=== PATIENT | male | born 1965 | race Hispanic/Latino ===

== ENCOUNTER 2017-12-20 17:53 | Emergency (ER) | payer MEDICARE ==
[~2017-12-20] VITALS: Ht 170.2 cm; Wt 108.9 kg
[~2017-12-20 17:53] MED LIST: GLIPIZIDE XL2.5 MG PO; LEVEMIR100 UNIT/1 SQ; METOCLOPRAMIDE10 MG PO; NORVASC10 MG PO; PROTONIX40 MG/ML PO
--- OUTSIDE RECORDS SUMMARY | 2017-12-20 17:56 | XMS REPORT | Clinical Summary ---
Author Author [facility] Address Unknown Phone Unavailable Care Team Providers Care Rail Equipment Operator Name Role Phone PCP Unavailable Allergies Not on File Current Medications Not on file Active Problems Not on file Encounters Date Type Specialty Care Team Description 11/29/2017 Telephone Transplant Duyen Lubin Appointment 11/28/2017 Orders Only Transplant Alka Novak RN ESRD (end stage renal disease) (HCC) (Primary Dx);Pre-transplant evaluation for end stage renal disease;Maturity onset diabetes mellitus in young (HCC);Essential hypertension, malignant;Anemia of chronic renal failure, unspecified CKD stage;Abnormal blood chemistry;Atherosclerosis of [place] coronary artery of [place] heart without angina pectoris;Impending cerebrovascular accident (HCC) 11/28/2017 Telephone Transplant Azul Green Appointment (Mrs. Hart called to confirm her spouse appt for 12/04/17. Per Mrs. Hart they will be here at 8 am for there appt) 10/29/2017 Abstract Transplant Karen Ma 10/19/2017 Abstract Transplant Karen Ma after 12/19/2016 Social History Tobacco Use Types Packs/Day Years Used Date Never Smoker Sex Assigned at Date Recorded Not on file Last Filed Vital Signs Vital Sign Reading Time Taken Blood Pressure - - Pulse - - Temperature - - Respiratory Rate - - Oxygen Saturation - - Inhaled Oxygen - - Concentration Weight 106.6 kg (235 lb) 10/19/2017 12:05 PM VICTIM WITNESS ADMINISTRATOR Height 170.2 cm (5' 7") 10/19/2017 12:05 PM VICTIM WITNESS ADMINISTRATOR Body Mass Index 36.81 10/19/2017 12:05 PM VICTIM WITNESS ADMINISTRATOR Plan of Treatment Health Maintenance Due Date Last Done Comments INFLUENZA VACCINE 06/24/2017 Results Not on fileafter 12/19/2016
--- OUTSIDE RECORDS SUMMARY | 2017-12-20 17:56 | XMS REPORT ---
Author Author [facility] Address Unknown Phone Unavailable Care Team Providers Care Outboard Motor Assembler Name Role Phone AGUILA REICO Unavailable Unavailable Problems This patient has no known problems. Allergies, Adverse Reactions, Alerts This patient has no known allergies or adverse reactions. Medications This patient has no known medications. Results Test Description Test Time Test Comments Text Results Atomic Results Result Comments CHEST SINGLE (PORTABLE) [place] [id number] Patient Name: ELIDIA ZAMORA MR #: [id number] : 1965 Age/Sex: 51/M Req #: [id number] Adm Physician: Ordered by: AGUILA RECIO MD Report # : [id number] Location: ER Room/Bed: Procedure: [id number] DX/CHEST SINGLE (PORTABLE) Exam Date: 07/07/17 Exam Time: 1900 REPORT STATUS: Signed CHEST SINGLE (PORTABLE), 2016 6:58 PM Technique: CHEST SINGLE (PORTABLE) Comparison: None available. Clinical history: Chest pain Findings: See Impression. Impression: 1. Unremarkable cardiomediastinal silhouette for technique. 2. Mild elevation of the right hemidiaphragm with right basilar opacity, which could be due to atelectasis or infection. Recommend upright PA and lateral. 3. No effusion or pneumothorax. Signed by: Dr Olayinka Harris MD on 07/07/2017 7:41 PM Dictated By: OLAYINKA HARRIS MD 40 Transcribed By: STEPHEN on 07/07 COPY TO: AGUILA RECIO MD
[2017-12-20 20:35] LABS: BASOPHILS # (AUTO) 0.1 (0.0-0.1); EOSINOPHILS # (AUTO) 0.3 (0.0-0.4); EOSINOPHILS % 3.3 % (0.0-6.0); HEMATOCRIT 36.6 % (38.2-49.6); HEMOGLOBIN 12.7 g/dL (14.0-18.0); LYMPHOCYTES # (AUTO) 1.8 (1.0-3.2); MEAN CORPUSCULAR HEMOGLOBIN 29.1 pg (28-32); MEAN CORPUSCULAR HGB CONC 34.7 g/dL (31-35); MEAN CORPUSCULAR VOLUME 83.8 fL (81-99); MONOCYTES # (AUTO) 0.6 (0.2-0.8); MONOCYTES % 7.2 % (4.4-11.3); NEUTROPHILS # (AUTO) 5.3 (2.1-6.9); NEUTROPHILS % 65.4 % (38.7-80.0); PLATELET COUNT 239 x10e3/uL (140-360); RED BLOOD COUNT 4.37 x10e6/uL (4.3-5.7); RED CELL DISTRIBUTION WIDTH 12.7 % (11.7-14.4)
[2017-12-20 20:36] LABS: BILIRUBIN,URINE NEGATIVE (NEGATIVE); CLARITY,URINE CLEAR (CLEAR); COLOR,URINE YELLOW (YELLOW); KETONES,URINE NEGATIVE (NEGATIVE); LEUKOCYTE ESTERASE ,URINE NEGATIVE (NEGATIVE); NITRITE,URINE NEGATIVE (NEGATIVE); PROTEIN,URINE DIPSTICK 3+ (NEGATIVE); URINE UROBILINOGEN 0.2 mg/dL (0.2 - 1)
[2017-12-20 20:49] LABS: BACTERIA,URINE MODERATE /HPF; EPITHELIAL CELLS,URINE FEW /LPF
[2017-12-20 20:51] LABS: ALBUMIN/GLOBULIN RATIO 0.7 (0.8-2.0); ANION GAP 16.5 mmol/L (8-16); CALCIUM 9.4 mg/dL (8.4-10.2); CREATININE, SERUM 8.33 mg/dL (0.72-1.25)
[2017-12-20 20:52] LABS: POTASSIUM 5.5 mmol/L (3.5-5.1)
[2017-12-20] MEDS ORDERED: INSULIN REGULAR, HUMAN 100 UNIT/1 ML 3ML VIAL IV ONE (22:30)
[2017-12-20] MEDS ORDERED: INSULIN REGULAR, HUMAN 100 UNIT/1 ML 3ML VIAL SQ ONE (22:30)
[2017-12-20] MEDS ORDERED: CLONIDINE HCL 0.2 MG TAB PO ONE (22:45)
== END 2017-12-21 02:19 | disposition home or self-care (01) ==
LOC: ER 17:53
DX: E11.65 Type 2 diabetes mellitus with hyperglycemia (principal); I12.0 Hypertensive chronic kidney disease with stage 5 chronic kidney disease or end stage renal disease; E11.22 Type 2 diabetes mellitus with diabetic chronic kidney disease; N18.6 End stage renal disease; Z99.2 Dependence on renal dialysis
CPT/HCPCS: 36415; 80053; 81001; 82948; 85025; 99283

== ENCOUNTER 2018-12-31 11:43 | Emergency (ER) | payer MEDICARE ==
[~2018-12-31] VITALS: Ht 170.2 cm; Wt 103.0 kg
--- OUTSIDE RECORDS SUMMARY | 2018-12-31 11:46 | XMS REPORT | Clinical Summary ---
Author Author [facility] Address Unknown Phone Unavailable Care Team Providers Care Central Supply Assistant Name Role Phone PCP Unavailable Allergies Not on File Medications Not on file Active Problems Not on file Encounters Care Team Description Date Type Specialty Azul Green Appointment (Per Mrs. Hart they will be here for their appt on tomorrow but they will probably be a few minutes late due to having to take their daughter to school they only have one car) 12/23/2018 Telephone Transplant Alka Novak RN ESRD (end stage renal disease) ([facility]) (Primary Dx); Pre-transplant evaluation for end stage renal disease; Maturity onset diabetes mellitus in young (HCC); Essential hypertension, malignant; Anemia of chronic renal failure, unspecified CKD stage; Abnormal blood chemistry; Pre-operative cardiovascular examination; Pure hypercholesterolemia; Atherosclerosis of [place] coronary artery of [place] heart without angina pectoris; Impending cerebrovascular accident (HCC) 11/18/2018 Orders Only Transplant Karen Ma 11/18/2018 Abstract Transplant Karen Ma 10/23/2018 Abstract Transplant Karen Ma 10/23/2018 Abstract Transplant Karen Ma 10/23/2018 Abstract Transplant Karen Ma 10/23/2018 Abstract Transplant MaKaren 10/23/2018 Abstract Transplant Karen Ma 03/15/2018 Abstract Transplant Karen Ma Kidney Transplant Pre-evaluation 02/25/2018 Telephone Transplant No Show 02/12/2018 Office Visit Transplant Karen Ma 01/16/2018 Abstract Transplant after 12/30/2017 Social History Date Tobacco Use Types Packs/Day Years Used Never Smoker Sex Assigned at Date Recorded Not on file Industry Job Start Date Occupation Not on file Not on file Not on file Travel End Travel History Travel Start No recent travel history available. Last Filed Vital Signs Time Taken Vital Sign Reading - Blood Pressure - - Pulse - - Temperature - - Respiratory Rate - - Oxygen Saturation - - Inhaled Oxygen - Concentration 10/23/2018 12:[address] RECORDER Weight 101.7 kg (224 lb 3.3 oz) 10/23/2018 12:[address] RECORDER Height 170.2 cm (5' 7") 10/23/2018 12:[address] RECORDER Body Mass Index 35.12 Plan of Treatment Care Team Description Date Type Specialty 02/25/2019 Office Visit Transplant 02/25/2019 Office Visit Transplant Wilton Singh II, MD [address] [place] [address] 02/25/2019 Orders Only Transplant Hepatology 02/25/2019 Evaluation Transplant Results Not on fileafter 12/30/2017 Insurance Payer Benefit Subscriber ID Type Phone Address Plan / Group MEDICARE MEDICARE A xxxxxxxxxxx Medicare B
[2018-12-31] MEDS ORDERED: SODIUM CHLORIDE 0.9% 1000ML 500 ML IV STA (12:18)
[2018-12-31 13:22] LABS: BASOPHILS # (AUTO) 0.1 (0.0-0.1); BASOPHILS % 1.1 % (0.0-1.0); EOSINOPHILS # (AUTO) 0.2 (0.0-0.4); EOSINOPHILS % 1.6 % (0.0-6.0); HEMOGLOBIN 13.1 g/dL (14.0-18.0); LYMPHOCYTES # (AUTO) 1.6 (1.0-3.2); LYMPHOCYTES % 12.6 % (18.0-39.1); MEAN CORPUSCULAR HEMOGLOBIN 28.8 pg (28-32); MEAN CORPUSCULAR VOLUME 90.1 fL (81-99); MONOCYTES # (AUTO) 1.1 (0.2-0.8); MONOCYTES % 8.2 % (4.4-11.3); NEUTROPHILS # (AUTO) 9.6 (2.1-6.9); NEUTROPHILS % 74.7 % (38.7-80.0); PLATELET COUNT 306 x10e3/uL (140-360); RED BLOOD COUNT 4.55 x10e6/uL (4.3-5.7); RED CELL DISTRIBUTION WIDTH 14.3 % (11.7-14.4)
--- NOTE | 2018-12-31 13:45 | NUR ---
PT TO ER ROOM 7 AT THIS TIME, V/S/S.
[2018-12-31 13:48] LABS: ALBUMIN 3.9 g/dL (3.5-5.0); ALBUMIN/GLOBULIN RATIO 0.8 (0.8-2.0); ANION GAP 17.4 mmol/L (8-16); CALCIUM 9.6 mg/dL (8.4-10.2); CREATININE, SERUM 10.85 mg/dL (0.72-1.25)
--- NOTE | 2018-12-31 13:50 | NUR ---
PT STATES "I FEEL BETTER, I DON'T HEAR THE RINGING IN MY EARS ANY MORE AND MY HEADACHE IS GONE". PT INSTRUCTED ON NEED TO OBTAIN STOOL SPECIMEN, STATES "I DO NOT THINK I CAN HAVE A BM RIGHT NOW", DR. RECIO MADE AWARE, PROVIDING FOOD AT THIS TIME.
[2018-12-31 13:52] LABS: POTASSIUM 6.4 mmol/L (3.5-5.1)
[2018-12-31] MEDS ORDERED: SODIUM BICARBONATE 8.4% 50 ML VIAL IV STA ×2 (13:56→14:04)
[2018-12-31] MEDS ORDERED: DEXTROSE 50% SYRINGE 50 ML IV STA (13:56)
[2018-12-31] MEDS ORDERED: CALCIUM CHLORIDE 13.6 MEQ in SODIUM CHLORIDE 0.9% 100 ML 100 ML IV ONE (14:00)
[2018-12-31] MEDS ORDERED: SOD POLYSTYRENE SULFONATE SUSP 15 GM/60 ML BTL PO ONE (14:00)
[2018-12-31] MEDS ORDERED: INSULIN REGULAR, HUMAN 100 UNIT/1 ML 3ML VIAL IV ONE (14:00)
[2018-12-31 16:40] LABS: OCCULT BLOOD STOOL POSITIVE (NEGATIVE)
[2018-12-31 16:59] VITALS: BP 124/74
[2019-01-01 11:52] LABS: C DIFFICILE TOXIN A&B AMP PROB NEGATIVE (NEGATIVE)
== END 2018-12-31 17:03 | disposition home or self-care (01) ==
LOC: ER 11:43
DX: R19.7 Diarrhea, unspecified (principal); E86.1 Hypovolemia; I95.89 Other hypotension
CPT/HCPCS: 36415; 80053; 82270; 82550; 82553; 82948; 83605; 84484; 85025; 87045; 87493; 93005; 99284; J1817; J7030; J7799

== ENCOUNTER → 2019-02-27 | Outpatient (CLI) | payer MEDICARE ==
--- NOTE | 2019-02-27 08:56 | Diagnostic Imaging Report ---
EXAM: US ABDOMEN COMPLETE INDICATION: Right upper quadrant abdominal pain COMPARISON: None TECHNIQUE: Transverse and longitudinal chávez scale and color doppler sonographic images of the abdomen were obtained. FINDINGS: LIVER 15.2 cm in the right midclavicular line. Normal echogenicity of the liver with normal contour, no masses. SPLEEN 11.6 cm in maximum diameter. Normal echogenicity, no masses. GALLBLADDER No gallbladder wall thickening, distension, stone, or pericholecystic fluid. Negative reported sonographic Campoverde's sign. BILE DUCTS No intra nor extra-hepatic biliary dilation. Common bile duct measures 0.2 cm PANCREAS: Not well visualized due to overlying bowel gas. RIGHT KIDNEY: 10.6 cm Echogenicity: Normal Collecting System: No hydronephrosis Stones: None Cyst/Mass: None LEFT KIDNEY: 10.9 cm Echogenicity: Normal Collecting System: No hydronephrosis Stones: None Cyst/Mass: None VESSELS: Aorta: Visualized portions are within normal size limits. The proximal portion is not well visualized due to overlying bowel gas. Inferior Vena Cava: Not well visualized due to overlying bowel gas. Main Portal Vein: 0.6 cm, normal size with hepatopetal flow. FREE FLUID: None IMPRESSION: Unremarkable abdominal ultrasound. Signed by: Dr. Wesley Edwards MD on 02/27/2019 8:53 AM
== END ==
LOC: US 07:54
PROVIDERS: ATTEND Internal Medicine Gastroenterology
DX: R10.11 Right upper quadrant pain (principal); D12.6 Benign neoplasm of colon, unspecified
CPT/HCPCS: 76700

== ENCOUNTER 2020-04-19 20:21 | Inpatient (IN) | payer MEDICARE ==
[~2020-04-19] VITALS: Ht 170.2 cm; Wt 108.2 kg
[2020-04-19] MEDS ORDERED: PIPERACILLIN/TAZO 2.25 GM 50 ML IV ONE (21:00)
[2020-04-19] MEDS ORDERED: VANCOMYCIN 1GM/NS 250 ML 250 ML IV ONE (21:00)
[2020-04-19] MEDS ORDERED: ACETAMINOPHEN 325 MG TAB PO ONE (21:15)
[2020-04-19 21:16] LABS: BASOPHILS # (AUTO) 0.1 (0.0-0.1); BASOPHILS % 0.7 % (0.0-1.0); EOSINOPHILS # (AUTO) 0.2 (0.0-0.4); EOSINOPHILS % 1.5 % (0.0-6.0); HEMATOCRIT 39.3 % (38.2-49.6); HEMOGLOBIN 12.6 g/dL (14.0-18.0); LYMPHOCYTES # (AUTO) 1.1 (1.0-3.2); LYMPHOCYTES % 7.9 % (18.0-39.1); MEAN CORPUSCULAR HEMOGLOBIN 28.3 pg (28-32); MEAN CORPUSCULAR HGB CONC 32.1 g/dL (31-35); MEAN CORPUSCULAR VOLUME 88.1 fL (81-99); MONOCYTES # (AUTO) 1.2 (0.2-0.8); MONOCYTES % 8.6 % (4.4-11.3); NEUTROPHILS % 80.4 % (38.7-80.0); PLATELET COUNT 261 x10e3/uL (140-360); RED BLOOD COUNT 4.46 x10e6/uL (4.3-5.7)
[2020-04-19 21:30] LABS: ALBUMIN 3.3 g/dL (3.5-5.0); ALBUMIN/GLOBULIN RATIO 0.6 (0.8-2.0); ANION GAP 20.9 mmol/L (8-16); CREATININE, SERUM 6.82 mg/dL (0.72-1.25); POTASSIUM 3.9 mmol/L (3.5-5.1)
[2020-04-19 21:37] LABS: CREATINE KINASE MB 2.2 ng/mL (0-5.0)
--- NOTE | 2020-04-19 21:38 | Emergency Department Note ---
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 HAS BEEN ON CEFDINIR AND ANTIBIOTIC EAR DROPS SINCE LAST SUNDAY Historian: Patient Arrival Mode: Car Onset (how long ago): day(s) (7) Location: LEFT EAR Quality: PAIN, DRAINAGE Radiation: Reports non-radiation Severity: moderate Onset quality: gradual Duration (how long): week(s) (1) Timing of current episode: constant Progression: worsening Context: Reports recent illness (OTITIS EXTERNA LEFT EAR) Relieving factors: none Associated symptoms: Reports fever/chills Treatments prior to arrival: NSAID, other (ANTIBIOTICS ) Past Medical/Family History Physician Review I have reviewed the patient's past medical and family history. Any updates have been documented here. Past Medical History Recent Fever: Yes Clinical Suspicion of Infectio: Yes New/Unexplained Change in Ment: No Past Medical History: Hypertension, Diabetes, CAD, Hemodyalisis, Chronic Kidney Disease Other Medical History: CATARACTS DIALYSIS M/W/F Past Surgical History: PCI Other Surgery: DIALYSIS GRAFT RIGHT FA colonoscopy with polupectomy Social History Smoking Cessation: Never Smoker Alcohol Use: None Any Illegal Drug Use: No Physically hurt or threatened: No Family History Other family history HTN, DM Other Last Tetanus: UTD Review of Systems Review of Systems Constitutional: Reports as per HPI EENTM: Reports as per HPI Cardiovascular: Reports no symptoms Respiratory: Reports no symptoms Gastrointestinal: Reports no symptoms Genitourinary: Reports no symptoms Musculoskeletal: Reports no symptoms Integumentary: Reports no symptoms Neurological: Reports no symptoms Psychological: Reports no symptoms Endocrine: Reports no symptoms Hematological/Lymphatic: Reports no symptoms Physical Exam Related Data Allergies: Coded Allergies: No Known Allergies (Unverified , 12/31/18) Triage Vital Signs Vital Signs Date Time Temp Pulse Resp B/P (MAP) Pulse Ox O2 Delivery O2 Flow Rate FiO2 04/19/20 20:40 102.0 110 20 162/86 100 Room Air Vital signs reviewed: Yes Physical Exam CONSTITUTIONAL Constitutional: Present well-developed, Present well-nourished HENT HENT: Present normocephalic, Present atraumatic, Present oropharynx clear/m oist, Present nose normal HENT L/R: Present right ext ear normal, Present other (PT WITH PAIN TO MOVEMENT LEFT EAR, MALODOROUS DISCHARGE FROM LEFT EAR, CANAL SWOLLEN) EYES Eyes: Reports PERRL, Reports conjunctivae normal NECK Neck: Present ROM normal PULMONARY Pulmonary: Present effort normal, Present breath sounds normal CARDIOVASCULAR Cardiovascular: Present regular rhythm, Present heart sounds normal, Present capillary refill normal, Present tachycardia GASTROINTESTINAL Abdominal: Present soft, Present nontender, Present bowel sounds normal GENITOURINARY Genitourinary: Present exam deferred SKIN Skin: Present warm, Present dry MUSCULOSKELETAL Musculoskeletal: Present ROM normal NEUROLOGICAL Neurological: Present alert, Present oriented x 3, Present no gross motor or sensory deficits PSYCHOLOGICAL Psychological: Present mood/affect normal, Present judgement normal Results Laboratory Result Diagram: 04/19/202049 Laboratory Laboratory Tests Test 04/19/20 20:53 04/19/20 20:50 White Blood Count 13.68 x10e3/uL (4.8-10.8) Red Blood Count 4.46 x10e6/uL (4.3-5.7) Hemoglobin 12.6 g/dL (14.0-18.0) Hematocrit 39.3 % (38.2-49.6) Mean Corpuscular Volume 88.1 fL (81-99) Mean Corpuscular Hemoglobin 28.3 pg (28-32) Mean Corpuscular Hemoglobin Concent 32.1 g/dL (31-35) Red Cell Distribution Width 13.0 % (11.7-14.4) Platelet Count 261 x10e3/uL (140-360) Neutrophils (%) (Auto) 80.4 % (38.7-80.0) Lymphocytes (%) (Auto) 7.9 % (18.0-39.1) Monocytes (%) (Auto) 8.6 % (4.4-11.3) Eosinophils (%) (Auto) 1.5 % (0.0-6.0) Basophils (%) (Auto) 0.7 % (0.0-1.0) Neutrophils # (Auto) 11.0 (2.1-6.9) Lymphocytes # (Auto) 1.1 (1.0-3.2) Monocytes # (Auto) 1.2 (0.2-0.8) Eosinophils # (Auto) 0.2 (0.0-0.4) Basophils # (Auto) 0.1 (0.0-0.1) Absolute Immature Granulocyte (auto 0.12 x10e3/uL (0-0.1) Sodium Level 134 mmol/L (136-145) Potassium Level 3.9 mmol/L (3.5-5.1) Chloride Level 90 mmol/L (98-107) Carbon Dioxide Level 27 mmol/L (22-29) Anion Gap 20.9 mmol/L (8-16) Blood Urea Nitrogen 20 mg/dL (7-26) Creatinine 6.82 mg/dL (0.72-1.25) Estimat Glomerular Filtration Rate 9 ML/MIN (60-) BUN/Creatinine Ratio 3 (6-25) Glucose Level 357 mg/dL (74-118) Lactic Acid Level 1.6 mmol/L (0.5-2.0) Calcium Level 9.0 mg/dL (8.4-10.2) Total Bilirubin 0.5 mg/dL (0.2-1.2) Aspartate Amino Transf (AST/SGOT) 14 IU/L (5-34) Alanine Aminotransferase (ALT/SGPT) 19 IU/L (0-55) Alkaline Phosphatase 215 IU/L (40-150) Creatine Kinase 144 IU/L (30-200) Creatine Kinase MB 2.20 ng/mL (0-5.0) Troponin I 0.051 ng/mL (0-0.300) Total Protein 8.7 g/dL (6.5-8.1) Albumin 3.3 g/dL (3.5-5.0) Globulin 5.4 g/dL (2.3-3.5) Albumin/Globulin Ratio 0.6 (0.8-2.0) Laboratory Tests Test 04/19/20 20:53 04/19/20 20:50 White Blood Count 13.68 x10e3/uL (4.8-10.8) Red Blood Count 4.46 x10e6/uL (4.3-5.7) Hemoglobin 12.6 g/dL (14.0-18.0) Hematocrit 39.3 % (38.2-49.6) Mean Corpuscular Volume 88.1 fL (81-99) Mean Corpuscular Hemoglobin 28.3 pg (28-32) Mean Corpuscular Hemoglobin Concent 32.1 g/dL (31-35) Red Cell Distribution Width 13.0 % (11.7-14.4) Platelet Count 261 x10e3/uL (140-360) Neutrophils (%) (Auto) 80.4 % (38.7-80.0) Lymphocytes (%) (Auto) 7.9 % (18.0-39.1) Monocytes (%) (Auto) 8.6 % (4.4-11.3) Eosinophils (%) (Auto) 1.5 % (0.0-6.0) Basophils (%) (Auto) 0.7 % (0.0-1.0) Neutrophils # (Auto) 11.0 (2.1-6.9) Lymphocytes # (Auto) 1.1 (1.0-3.2) Monocytes # (Auto) 1.2 (0.2-0.8) Eosinophils # (Auto) 0.2 (0.0-0.4) Basophils # (Auto) 0.1 (0.0-0.1) Absolute Immature Granulocyte (auto 0.12 x10e3/uL (0-0.1) Lactic Acid Level 1.6 mmol/L (0.5-2.0) Lab results reviewed: Yes Imaging Imaging results reviewed: Yes Impressions Procedure: [id number] DX/CHEST SINGLE (PORTABLE) Exam Date: 04/19/20 Exam Time: 2113 REPORT STATUS: Signed EXAMINATION: CHEST SINGLE (PORTABLE) INDICATION: Fever COMPARISON: Radiograph dated 07/07/2017 FINDINGS: TUBES and LINES: None. LUNGS: Low lung volumes. Lungs are clear. No consolidations. PLEURA: No pleural effusion or pneumothorax. HEART AND MEDIASTINUM: The cardiomediastinal silhouette is unremarkable. BONES AND SOFT TISSUES: No acute osseous lesion. Soft tissues are unremarkable. UPPER ABDOMEN: No free air under the diaphragm. IMPRESSION: No acute thoracic radiographic abnormality. Signed by: Tyler Bateman MD on 04/19/2020 10:19 PM Procedures 12 Lead ECG Interpretation ECG Interpretation : ECG: ECG 1 Garment Inspector: Interpreted by ED physician Date: Apr 19, 2020 Time: 20:52 Rhythm: sinus tachycardia Rate: tachycardia BPM: 107 QRS axis: normal ST segments normal: Yes Other findings: no other findings Clinical Impression: non-specific ECG Assessment & Plan Medical Decision Making MDM PT WITH OTITIS EXTERNAL ON ANTIBIOTICS FOR SINCE LAST SUNDAY, NOW WITH FEVER, CBC, CMP, LACTIC ACID, BLOOD CULTURES, CXR, EKG ORDERED TO EVAL FOR SEPSIS, LEUKOCYTOSIS, PNEUMONIA, ELECTROLYTE ABNORMALITY. ZOSYN 2.275 GRAMS IV ORDERED VANCOMYCIN 1 GRAM IV ORDERED TYLENOL 975 MG PO ORDERED I SPOKE WITH DR PEREZ, DR GOMEZ COVERING FOR DR BILL AND DR Ksenia THOMPSON, ADMIT INPATIENT Assessment & Plan Final Impression: (1) Otitis externa (2) Fever (3) Failure of outpatient treatment (4) ESRD (end stage renal disease) Depart Disposition: ADMITTED Last Vital Signs Date Time Temp Pulse Resp B/P (MAP) Pulse Ox O2 Delivery O2 Flow Rate FiO2 04/19/20 20:40 102.0 110 20 162/86 100 Room Air Home Meds Active Scripts Metoclopramide Hcl (METOCLOPRAMIDE HCL) 10 Mg Tablet, 10 MG PO BIDAC for 30 Days, 5 Refills Prov:DANA PEREZ MD 07/08/17 Pantoprazole Sod (PROTONIX) 40 Mg/Ml Susp, 40 MG PO ACB for 30 Days, 5 Refills Prov:DANA PEREZ MD 07/08/17 Glipizide (GLIPIZIDE XL) 2.5 Mg Tabcr, 2.5 MG PO DAILY@08 for 30 Days, 5 Refills Prov:DANA PERZE MD 07/08/17 Amlodipine Besylate (NORVASC) 10 Mg Tab, 10 MG PO HS for 30 Days, TAB 5 Refills Prov:DANA PEREZ MD 07/08/17 Reported Medications Insulin Detemir (LEVEMIR) 100 Unit/1 Ml Vial, 30 UNITS SQ HS 07/07/17 Medications in the ED Vancomycin HCl 250 ml @ 166.667 mls/hr NOW ONCE IV ; Start 04/19/20 at 21:00; Stop 04/19/20 at 22:29 Piperacillin Sod/ Tazobactam Sod 50 ml @ 50 mls/hr NOW ONCE IV Last administered on 04/19/20at 21:16; Admin Dose 50 MLS/HR; Start 04/19/20 at 21:00; Stop 04/19/20 at 21:59 Acetaminophen 975 mg ONCE ONCE PO Last administered on 04/19/20at 21:16; Admin Dose 975 MG; Start 04/19/20 at 21:15; Stop 04/19/20 at 21:16; Status DC ROBBY RAM MD Apr 19, 2020 21:38
--- NOTE | 2020-04-19 22:23 | Diagnostic Imaging Report ---
EXAMINATION: CHEST SINGLE (PORTABLE) INDICATION: Fever COMPARISON: Radiograph dated 07/07/2017 FINDINGS: TUBES and LINES: None. LUNGS: Low lung volumes. Lungs are clear. No consolidations. PLEURA: No pleural effusion or pneumothorax. HEART AND MEDIASTINUM: The cardiomediastinal silhouette is unremarkable. BONES AND SOFT TISSUES: No acute osseous lesion. Soft tissues are unremarkable. UPPER ABDOMEN: No free air under the diaphragm. IMPRESSION: No acute thoracic radiographic abnormality. Signed by: Tyler Bateman MD on 04/19/2020 10:19 PM
[2020-04-19] MEDS ORDERED: DEXTROSE 50% SYRINGE 50 ML IV PRN (23:00)
[2020-04-20] VITALS (7 sets, daily range): BP systolic 141–170; BP diastolic 77–83
[2020-04-20] MEDS: PIPERACILLIN/TAZO 2.25 GM 50 ML IV SCH ×3 (00:37→22:26)
[2020-04-20 04:17] LABS: BASOPHILS # (AUTO) 0.1 (0.0-0.1); BASOPHILS % 0.7 % (0.0-1.0); EOSINOPHILS # (AUTO) 0.2 (0.0-0.4); EOSINOPHILS % 2.2 % (0.0-6.0); HEMATOCRIT 34.7 % (38.2-49.6); HEMOGLOBIN 11.1 g/dL (14.0-18.0); LYMPHOCYTES # (AUTO) 1.6 (1.0-3.2); LYMPHOCYTES % 14.5 % (18.0-39.1); MEAN CORPUSCULAR HEMOGLOBIN 28.2 pg (28-32); MEAN CORPUSCULAR VOLUME 88.3 fL (81-99); MONOCYTES # (AUTO) 1.1 (0.2-0.8); MONOCYTES % 10.1 % (4.4-11.3); NEUTROPHILS # (AUTO) 7.6 (2.1-6.9); NEUTROPHILS % 71.7 % (38.7-80.0); PLATELET COUNT 226 x10e3/uL (140-360); RED BLOOD COUNT 3.93 x10e6/uL (4.3-5.7); RED CELL DISTRIBUTION WIDTH 12.8 % (11.7-14.4)
[2020-04-20 04:36] LABS: ALBUMIN 2.8 g/dL (3.5-5.0); ALBUMIN/GLOBULIN RATIO 0.6 (0.8-2.0); ANION GAP 19.5 mmol/L (8-16); CALCIUM 7.5 mg/dL (8.4-10.2); CREATININE, SERUM 8.07 mg/dL (0.72-1.25); POTASSIUM 4.5 mmol/L (3.5-5.1)
--- NOTE | 2020-04-20 05:27 | NUR ---
Patient oxygen saturation dropped when patient was sleeping. Patient placed on 2L. Patient denies any shortness of breath at this time.
--- NOTE | 2020-04-20 07:04 | NUR ---
Report to OMAR Bosch
[2020-04-20] MEDS: MORPHINE SULFATE 2 MG/ML SYR 1ML IV PRN ×3 (07:24→22:23)
[2020-04-20] MEDS: INSULIN REGULAR, HUMAN 100 UNIT/1 ML 3ML VIAL SQ SCH ×4 (08:09→20:46)
--- NOTE | 2020-04-20 08:09 | NUR ---
PATIENT SITTING UP EATING BREAKFAST
[2020-04-20] MEDS ORDERED: SODIUM CHLORIDE 0.9% 250ML 250 ML ONE ×2 (12:27→22:22)
[2020-04-20] MEDS: ONDANSETRON HCL INJ 2MG/ML 2ML 2 MG/ML VIAL IV PRN ×2 (14:00→22:27)
[2020-04-20] MEDS: NEOMYCIN/POLYMYX/HYDROC (OTIC) 10 ML BTL OT SCH ×3 (14:00→20:43)
[2020-04-20] MEDS ORDERED: CIPROFLOXACIN-DEXAMETHASONE (OTIC) 7.5 ML BOTTLE OT SCH (17:00)
--- NOTE | 2020-04-20 19:00 | NUR ---
RECEIVED PATIENT IN BEDSIDE SHIFT REPORT. PATIENT RESTING IN BED AT THIS TIME. PAIN TO L EAR/FACE 01/31. NO S&S OF DISTRESS NOTED AT THIS TIME. BED LOCKED IN LOWEST POSITION, SIDE RAILS UPX2, CALL LIGHT IN REACH.
--- NOTE | 2020-04-20 20:15 | Consultation ---
DATE OF CONSULTATION: 04/20/2020 Hospital Consultation HISTORY OF PRESENT ILLNESS: I was kindly asked to see this 54-year-old man for evaluation of otitis externa. The patient has no previous otologic history until one week prior to consultation when he developed discomfort in his left ear and pain when using a Q-tip in his left ear. He stopped using Q-tips, however, the pain progressed. He had mild drainage from his ear. He reports that one day prior to admission, he had a "off balance" sensation, but no true hallucination motion. He also denies tinnitus and hearing loss. His history of present illness, past medical history, and past surgical history were all reviewed in detail in the chart. PHYSICAL EXAMINATION: On examination, the right pinna was normal. Right external auditory canal was normal. Right tympanic membrane was normal. The right postauricular area had no pain, swelling, erythema, or tenderness. The left pinna was normal. The left external auditory canal was mildly edematous and mildly erythematous with mucopus within the external auditory canal. The tympanic membrane cannot be visualized. There was no postauricular pain, swelling, erythema, or tenderness. Intranasal examination was noncontributory. Oral cavity examination showed ezdt-my-[id number] candidiasis on the dorsum of the tongue. He had long soft palate and redundant folds of hypopharyngeal mucosa. There was minimal postnasal drainage. He had no palpable cervical adenopathy. Facial nerve was intact with no evidence of weakness. ASSESSMENT: Left otitis externa. PLAN: Addition of topical therapy with Cortisporin drops 4 times daily. Thank you very much for this consultation. MD DANIEL Russo/MODL /[id number]
[2020-04-20] MEDS: AMLODIPINE BESYLATE 10 MG TAB PO SCH (20:43)
[2020-04-20] MEDS: ACETAMINOPHEN 325 MG TAB PO PRN (20:44)
[2020-04-20] MEDS: HYDRALAZINE HCL 20 MG/ML VIAL IV PRN (20:44)
[2020-04-20] MEDS ORDERED: NON-FORMULARY MEDICATION (Insulin Detemir (Levemir) 30 UNITS) SQ SCH (21:00)
[2020-04-20] MEDS ORDERED: INSULIN GLARGINE 100 UNITS/ML VIAL SQ SCH (21:00)
[2020-04-21] VITALS (10 sets, daily range): BP systolic 116–189; BP diastolic 60–78
[2020-04-21 05:44] LABS: BASOPHILS # (AUTO) 0.1 (0.0-0.1); BASOPHILS % 0.6 % (0.0-1.0); EOSINOPHILS # (AUTO) 0.4 (0.0-0.4); EOSINOPHILS % 3.1 % (0.0-6.0); HEMATOCRIT 35.4 % (38.2-49.6); LYMPHOCYTES # (AUTO) 1.8 (1.0-3.2); LYMPHOCYTES % 14.8 % (18.0-39.1); MEAN CORPUSCULAR HEMOGLOBIN 30.5 pg (28-32); MEAN CORPUSCULAR HGB CONC 33.9 g/dL (31-35); MEAN CORPUSCULAR VOLUME 90.1 fL (81-99); MONOCYTES # (AUTO) 1.1 (0.2-0.8); MONOCYTES % 8.5 % (4.4-11.3); NEUTROPHILS % 72.3 % (38.7-80.0); PLATELET COUNT 224 x10e3/uL (140-360); RED BLOOD COUNT 3.93 x10e6/uL (4.3-5.7); RED CELL DISTRIBUTION WIDTH 13.1 % (11.7-14.4)
[2020-04-21 06:40] LABS: ALBUMIN 2.8 g/dL (3.5-5.0); ALBUMIN/GLOBULIN RATIO 0.6 (0.8-2.0); ANION GAP 23.8 mmol/L (8-16); CALCIUM 7.8 mg/dL (8.4-10.2); CREATININE, SERUM 10.95 mg/dL (0.72-1.25); POTASSIUM 4.8 mmol/L (3.5-5.1)
[2020-04-21] MEDS: INSULIN REGULAR, HUMAN 100 UNIT/1 ML 3ML VIAL SQ SCH ×4 (07:30→21:20)
--- NOTE | 2020-04-21 07:30 | NUR ---
PATIENT IS ALERT AND IN STABLE CONDITION WITH NO S/S OF RESPIRATORY DISTRESS. PATIENT C/O LEFT SIDE HEAD PAIN D/T LEFT EAR. CALL LIGHT IS WITHIN REACH, PATIENT INSTRUCTED TO CALL FOR ASSISTANCE NEEDED.
[2020-04-21] MEDS: ACETAMINOPHEN 325 MG TAB PO PRN ×2 (07:48→20:29)
[2020-04-21] MEDS: PANTOPRAZOLE SOD 40 MG TABEC PO SCH (07:48)
[2020-04-21] MEDS: HYDRALAZINE HCL 20 MG/ML VIAL IV PRN (07:49)
[2020-04-21] MEDS: NEOMYCIN/POLYMYX/HYDROC (OTIC) 10 ML BTL OT SCH ×4 (07:52→21:20)
[2020-04-21] MEDS ORDERED: GLIPIZIDE5 MG PO (08:33)
[2020-04-21] MEDS ORDERED: AUGMENTIN 875-1 EACH PO (08:33)
[2020-04-21] MEDS ORDERED: NEOMYCIN-POLYMY10 ML OT (08:33)
[2020-04-21] MEDS ORDERED: TYLENOL WITH C1 EACH PO (08:33)
[2020-04-21] MEDS ORDERED: LEVEMIR100 UNIT/1 SQ (08:33)
[2020-04-21] MEDS ORDERED: LEVEMIR FL100 UNIT/1 SC (08:34)
[2020-04-21] MEDS ORDERED: LISINOPRIL10 MG PO (08:36)
[2020-04-21] MEDS ORDERED: HYDRALAZINE HCL25 MG PO (08:40)
[2020-04-21] MEDS ORDERED: LISINOPRIL 10 MG TAB PO SCH (09:00)
[2020-04-21] MEDS: HYDRALAZINE HCL 25 MG TAB PO SCH ×2 (09:26→15:35)
--- NOTE | 2020-04-21 10:01 | NUR ---
CONSULT CALLED TO DR. BILL- AWAITING CALLBACK
[2020-04-21] MEDS: PIPERACILLIN/TAZO 2.25 GM 50 ML IV SCH ×2 (10:58→23:35)
--- NOTE | 2020-04-21 11:37 | NUR ---
CALL PLACED TO [facility]- SPOKE WITH FRANK REGARDING PATIENT NEEDING DIALYSIS TODAY. ORDER RECEIVED FROM DR. CAT.
--- NOTE | 2020-04-21 13:55 | NUR ---
PATIENT STARTED DIALYSIS- PATIENT IN STABLE CONDITION WITH NO S/S OF RESPIRATORY DISTRESS. NO C/O PAIN. CALL LIGHT IS WITHIN REACH, PATIENT INSTRUCTED TO CALL FOR ASSISTANCE NEEDED.
--- NOTE | 2020-04-21 15:55 | NUR ---
Nutrition Screen Note RD Recommendation for Physician: -Continue current diet as ordered Plan of Care: RD following, monitoring for tolerance and adequacy Nutrition reason for involvement: Diagnosis - ESRD Primary Diagnose(s): ESRD, failure of outpatient treatments, otitis externa PMH: hypertension, type 2 diabetes and end-stage renal disease Ht: 67 in Wt: 230 lb BMI: 36.0 kg/m2 IBW:[address] Assessment: (04/21/20) Chart reviewed. Labs and meds reviewed. Pt is a 54 year old male admitted with ESRD, failure of outpatient treatments, and otitis externa. It is recorded that pt is consuming 75-100% of meals. No weight loss is evident per weight history in chart. Pt weighed 232 lbs in June 2017 and pt currently weighs 230 lbs. Will continue to monitor Current Diet: renal/diabetic diet Malnutrition Evaluation (04/21/20) The patient does not meet criteria for a specified degree of malnutrition at this time. Will re-evaluate at follow-up as appropriate. Diet Education Needs Assessment: RD is available for diet education as needed Nutrition Care Level: low Signed: Sudha Escobedo, RD, LD
[2020-04-21] MEDS: CLONIDINE HCL 0.2 MG TAB PO SCH (17:36)
--- NOTE | 2020-04-21 18:20 | Consultation ---
DATE OF CONSULTATION: 04/21/2020 HISTORY OF PRESENT ILLNESS: Mr. Kishore Hart, known to our Nephrology Service is a 54-year-old gentleman underlying history of diabetes and diabetic kidney disease. End-stage renal disease, on dialysis with Dr. Echeverria, Dr. Sibley in [facility]. Currently came in with earache, found to have otitis externa, seen by Dr. Alvarez, antibiotics started. White count still elevated at 12.4. Denies fever, chills, or headache, at this point in time. Labs; sodium 140, potassium 3.5 with a creatinine 7.0. PAST MEDICAL HISTORY: Significant for GERD, esophagitis, type 2 diabetes, retinopathy, neuropathy, history of angina, history of longstanding hypertension, prior appendectomy, has a fistula, secondary hyperparathyroidism. SOCIAL HISTORY: Does not smoke or drink. FAMILY HISTORY: Significant for diabetes. LABORATORY DATA: Chest x-ray at this time negative. White count 12.4, hemoglobin 12. Potassium 4.8 with a creatinine 10.9. PHYSICAL EXAMINATION: GENERAL: Awake, alert, and oriented x3, lying supine, in no apparent distress. VITAL SIGNS: Blood pressure 189/78, pulse rate 89, afebrile. HEAD AND NECK: Cornea clear, mucosa moist. LUNGS: Bibasilar rales. HEART: S1, S2 audible. ABDOMEN: Otherwise, soft, nontender. No apparent visceromegaly. EXTREMITIES: Lower extremity, no edema. IMPRESSION: End-stage renal disease, hypertension, fluid overload, underlying ear infections, seen by Dr. Alvarez, and I would recommend at least 24 hours worth of IV antibiotic, before sending him home I will arrange for dialysis. Place on renal diet. Resume phosphorus binders. Fluid restriction. Blood pressure control. Please see orders. MD MAKI Shipman/MODL /[id number]
--- NOTE | 2020-04-21 19:24 | NUR ---
PATIENT IN STABLE CONDITION WITH NO S/S OF RESPIRATORY DISTRESS. NO PAIN VOICED. BED ALARM APPLIED. CALL LIGHT IS WITHIN REACH, PATIENT INSTRUCTED TO CALL FOR ASSISTANCE NEEDED. REPORT GIVEN TO ONCOMING NURSE.
--- NOTE | 2020-04-21 20:30 | NUR ---
Assumed care for the patient. Report received from Castillo Rao (OMAR). Pt alert and oriented x3. Pt receiving ear drop antibiotic to left ear as scheduled. On IV antibiotics as scheduled. Call jacinto within reach.
[2020-04-21] MEDS ORDERED: INSULIN GLARGINE 100 UNITS/ML VIAL SQ SCH (21:00)
[2020-04-21] MEDS: AMLODIPINE BESYLATE 10 MG TAB PO SCH (21:20)
[2020-04-22 00:15] VITALS: BP 148/82
[2020-04-22 04:00] VITALS: BP 145/71
[2020-04-22 06:12] LABS: BASOPHILS # (AUTO) 0.1 (0.0-0.1); BASOPHILS % 0.9 % (0.0-1.0); EOSINOPHILS # (AUTO) 0.1 (0.0-0.4); EOSINOPHILS % 1.3 % (0.0-6.0); HEMATOCRIT 33.4 % (38.2-49.6); HEMOGLOBIN 10.7 g/dL (14.0-18.0); LYMPHOCYTES # (AUTO) 1.7 (1.0-3.2); LYMPHOCYTES % 20.1 % (18.0-39.1); MEAN CORPUSCULAR HEMOGLOBIN 28.4 pg (28-32); MEAN CORPUSCULAR VOLUME 88.6 fL (81-99); MONOCYTES # (AUTO) 1.1 (0.2-0.8); MONOCYTES % 13.2 % (4.4-11.3); NEUTROPHILS # (AUTO) 5.4 (2.1-6.9); NEUTROPHILS % 63.8 % (38.7-80.0); PLATELET COUNT 225 x10e3/uL (140-360); RED BLOOD COUNT 3.77 x10e6/uL (4.3-5.7); RED CELL DISTRIBUTION WIDTH 12.9 % (11.7-14.4)
[2020-04-22 06:31] LABS: ALBUMIN 2.6 g/dL (3.5-5.0); ALBUMIN/GLOBULIN RATIO 0.6 (0.8-2.0); ANION GAP 20.4 mmol/L (8-16); CREATININE, SERUM 8.8 mg/dL (0.72-1.25); POTASSIUM 4.4 mmol/L (3.5-5.1)
--- NOTE | 2020-04-22 07:00 | NUR ---
Received Bedside shift report from off going night nurse. patient in stable condition, no s/s of distress noted iv site asymptomatic and patent, transparent dressing C/D/I. Bed in lowest position and locked, side rails x 2, non-skid socks applied. Call light within reach.
[2020-04-22] MEDS: PANTOPRAZOLE SOD 40 MG TABEC PO SCH (07:30)
[2020-04-22] MEDS: INSULIN REGULAR, HUMAN 100 UNIT/1 ML 3ML VIAL SQ SCH (07:30)
[2020-04-22 08:07] VITALS: BP 138/69
[2020-04-22 08:08] VITALS: BP 138/69
[2020-04-22] MEDS ORDERED: CATAPRES0.2 MG PO (09:35)
[2020-04-22] MEDS: CLONIDINE HCL 0.2 MG TAB PO SCH (09:39)
[2020-04-22] MEDS: NEOMYCIN/POLYMYX/HYDROC (OTIC) 10 ML BTL OT SCH (09:41)
[2020-04-22] MEDS ORDERED: ONDANSETRON HCL 4 MG ORAL DISINTEGRATING TAB PO PRN (10:30)
[2020-04-22 11:32] VITALS: BP 112/63
--- NOTE | 2020-04-22 13:38 | NUR ---
Patient discharged home. Patient off the unit @ 1326 accompanied by the PCT to the lobby. Patient in stable condition, no s/s of distress noted. No pain noted. Iv access removed with tip intact. All personal items taken with the patient. Discharge teaching and instruction given to the patient. Patient verbalized understanding. Prescriptions and discharge paperwork given to the patient.
--- NOTE | 2020-04-23 18:15 | Discharge Summary ---
ADMISSION DIAGNOSES: Otitis externa with sepsis, type 2 diabetes with end-stage renal disease, hypertension with end-stage renal disease, end-stage renal disease. DISCHARGE DIAGNOSES: Otitis externa with sepsis, type 2 diabetes with end-stage renal disease, hypertension with end-stage renal disease, end-stage renal disease. HISTORY: End-stage renal disease, hypertension, CAD with PCI, type 2 diabetes. SURGICAL HISTORY: Right arm AV fistula, bilateral cataract surgery. FAMILY HISTORY: The patient's mom, dad, brother, and sister have diabetes. SOCIAL HISTORY: Noncontributory. HOSPITAL COURSE: A 54-year-old male admits with complaints of left ear pain since last Sunday. He now complains of sore throat and fever. He was prescribed Omnicef and antibiotic ear drops with no relief. On admission, the patient was started on Zosyn and Cipro drops per ENT recommendation. After couple of days, the patient is feeling much better. His high blood pressure was uncontrolled, so clonidine has to be added. Blood cultures were negative. Chest x-ray was negative. The patient's A1c came back at 13.6, so his diabetic home medicine was increased and the patient was advised to stick to a diabetic diet and repeat the A1c in 3 months. The patient understands discharge instructions and agrees to plan. He will follow up with primary care in 1 to 2 weeks and ENT tomorrow. Dictated by Shanice Suarez NP MD XIOMY Be/MODL /[id number]
--- OUTSIDE RECORDS SUMMARY | 2020-04-23 19:04 | XMS REPORT | Continuity of Care Document ---
Author Author [facility] t Organization [facility] Address [address] [place] [address] Phone Unavailable Care Team Providers Care Chisel Mortiser Operator Name Role Phone MD [facility] PCP Ksenia RAM Attphys Unavailable Gisela Jimenez Attphys Unavailable Nancy E Joseline Attphys Unavailable Ksenia Lubin Attphys Unavailable Kishore NELSON, Alka Attphys Unavailable Te NELSON, Ester Attphys Unavailable Nelson Locke MD Attphys Donny MERAZ Attphys Unavailable Nelson LOCKE Attphys Unavailable Sharonda RECIO Attphys Unavailable Payers Payer Name Policy Type Policy Number Effective Date Expiration Date Donny martinez Medicare A & B [id number] 2016 00:00:00 [facility] MEDICAREMEDICARE A BxxxxxxxxxxxMedicare xxxxxxxxxxx [facility] Problems Condition Name Condition Details Condition Category Status Onset Date Resolution Date Last Treatment Date Treating Clinician Comments Source ESRD (end stage renal disease) on dialysis ESRD (end s tage renal disease) on dialysis Disease Active 2019-02-25 00:00:00 Last Assessment & Plan: End stage renal disease secondary to DM. He has required dialysis since April 2017. He still produces urine. He does not have potential donors. [facility] Hypertension Hypertension Disease Active 2019-02-25 00:00:00 Last Assessment & Plan: Blood pressure management per nephrology. [facility] Diabetes mellitus Diabetes mellitus Disease Active 2019-02-25 00:00:00 Overview: Type 2Last Assessment & Plan: Diabetes type 2. He will continue follow up with primary care for blood glucose management. [facility] Pre-transplant evaluation for chronic kidney disease P re-transplant evaluation for chronic kidney disease Disease Active 2019-02-25 00:00:00 Last Assessment & Plan: He is an acceptable candidate for kidney transplant pending a cardiac cath due to age and diabetes. [facility] Obesity Obesity Disease Active 2019-02-25 00:00:00 Last Assessment & Plan: Current BMI is 36. Though his body habitus appears smaller. He was encouraged to monitor his oral intake and to exercise as tolerated. [facility] Chest pain Chest pain Problem Active [facility] End-stage renal disease ESRD (end stage renal disease) Problem Active [facility] Hyperglycemia Hyperglycemia Problem Active [facility] Otitis externa Problem Active [facility] Fever Problem Active [facility] Failure of outpatient treatment Problem Active [facility] Allergies, Adverse Reactions, Alerts Allergy Name Allergy Type Status Severity Reaction(s) Onset Date Inacti ve Date Treating Clinician Comments Source adhesive tape DA Active MO 2018-10-02 00:00:00 [facility] Adhesive Tape Drug Allergy Active Rash 2018-10-02 00:00:00 Silk Tape Only. [facility] No Known Allergies DA Active U 2014-02-16 00:00:00 [facility] Family History Family Member Diagnosis Comments Start Date Stop Date Source Natural brother Blindness [facility] Natural brother Kidney failure [facility] Natural brother Peripheral vascular disease [facility] Natural brother Diabetes [facility] Natural father Diabetes [facility] Natural father Kidney failure [facility] Natural mother Diabetes [facility] Natural mother Peripheral vascular disease [facility] Family member Colon cancer [facility] Family member Heart disease [facility] Social History Social Habit Start Date Stop Date Quantity Comments Source History SDOH Alcohol Std Drinks [facility] History SDOH Alcohol Binge [facility] Sex Assigned At [facility] History SDOH Alcohol Frequency 2019-02-25 00:00:00 2019-02-25 00:00:0 0 1 [facility] Smoking Status Start Date Stop Date Source Never smoker [facility] Medications Ordered Medication Name Filled Medication Name Start Date Stop Da te Current Medication? Ordering Clinician Indication Dosage Frequency Signature (SIG) Comments Components Source Clonidine Hcl (Catapres) 0.2 Mg TABLET Clonidine Hcl (Catapr es) 0.2 Mg TABLET 2020-04-22 09:35:00 Yes .2 Twice A Day [facility] Insulin Detemir (Levemir Flextouch) 100 Unit/[address]PEN Insulin Detemir (Levemir Flextouch) 100 Unit/1 Ml INSULN.PEN 2020-04-21 08:34:00 Yes 40 Bedtime [facility] Acetaminophen With Codeine (Tylenol With Codeine #3 Ta blet) 1 Each TABLET Acetaminophen With Codeine (Tylenol With Codeine #3 Tablet) 1 Each TABLET 2020-04-21 08:33:00 Yes 300 Every 8 Hours as n eeded for Pain [facility] Amoxicillin/Potassium Clav (Augmentin 875-125 Tablet) 1 Each TABLET Amoxicillin/Potassium Clav (Augmentin 875-125 Tablet) 1 Each TABLET 2020-04-21 08:33:00 Yes 1 Twice A Day [facility] Glipizide Glipizide 2020-04-21 08:33:00 Yes 5 Daily [facility] Neomycin/Polymyxin B Sulf/Hc (Tapzdsgw-Tnmypyjqd-Yd Ea r Soln) 10 Ml SOLUTION Neomycin/Polymyxin B Sulf/Hc (Bwzvslzn-Twahvorbi-Cu Ear Soln) 10 Ml SOLUTION 2020-04-21 08:33:00 Yes 0 Four Times Daily [facility] aspirin 81 MG EC tablet 2019-02-25 10:50:02 Yes 81mg QD Take 81 mg by mouth daily. [facility] metoprolol (LOPRESSOR) 25 MG tablet 2019-02-25 10:50:02 Yes 25mg QD Take 25 mg by mouth daily. [facility] sevelamer (RENVELA) 800 mg tablet 2019-02-25 10:50:02 Yes 2400mg Take 2,400 mg by mouth 3 (three) times daily with meals. [facility] sucroferric oxyhydroxide (VELPHORO) 500 mg Chew 2019-02-25 10:50 :02 Yes 500mg Q.[id number] Take 500 mg by mouth 3 (three) times daily. [facility] clopidogrel (PLAVIX) 75 mg tablet 2019-02-25 10:50:02 Yes 75mg QD Take 75 mg by mouth daily. [facility] dexlansoprazole 60 mg capsule 2019-02-25 10:50:02 Yes 60mg QD Take 60 mg by mouth daily. [facility] Pantoprazole Sod (Protonix) 40 Mg/Ml SUSP Pantoprazole Sod (Protonix) 40 Mg/Ml SUSP 2017-07-08 13:24:00 Yes 40 Before Breakfast [facility] Metoclopramide Hcl Metoclopramide Hcl 2017-07-08 13:24:00 2020-03-25 00:00:00 No 10 Twice Daily Before Meals [facility] Amlodipine Besylate (Norvasc) 10 Mg TAB Amlodipine Besylate (Norvasc) 10 Mg TAB 2017-07-08 13:23:00 Yes 10 Bedtime [facility] Glipizide (Glipizide Xl) 2.5 Mg TABCR Glipizide (Glipizide X l) 2.5 Mg TABCR 2017-07-08 13:23:00 2020-04-21 00:00:00 No 2.5 Daily @08 [facility] Insulin Detemir (Levemir) 100 Unit/1 Ml VIAL Insulin D etemir (Levemir) 100 Unit/1 Ml VIAL 2020-04-21 00:00:00 No 30 Bedtime [facility] Vital Signs Vital Name Observation Time Observation Value Comments Source Body Temperature 2020-04-22 11:32:00 99.8 [degF] [facility] Weight 2020-04-22 01:01:00 238.44 [lb_av] [facility] BMI (Body Mass Index) 2020-04-22 01:01:00 37.3 kg/m2 [facility] Systolic blood pressure 2019-05-06 14:50:00 136 mm[Hg] [facility] Diastolic blood pressure 2019-05-06 14:50:00 85 mm[Hg] [facility] Heart rate 2019-05-06 14:50:00 96 /min [facility] Respiratory rate 2019-05-06 14:50:00 18 /min [facility] Body height 2019-05-06 13:00:00 170.2 cm [facility] Body weight Measured 2019-05-06 13:00:00 104.327 kg [facility] BMI 2019-05-06 13:00:00 36.02 kg/m2 [facility] Procedures Procedure Date / Time Performed Performing Clinician [facility] e ECHOCARDIOGRAM REPORT - SCAN 2019-05-08 21:23:16 Provider, Stephany lt Scanning [facility] PERIPHERAL VASCULAR REPORT - SCAN 2019-05-08 21:21:25 Provid er, Default Scanning [facility] TRANSFUSION SERVICE REPORT - SCAN 2019-05-07 18:04:28 Provid er, Default Scanning [facility] XR CHEST 2 VIEWS 2019-05-06 16:12:00 Wilton Locke [facility] US ABDOMEN COMPLETE 2019-05-06 16:02:00 Wilton Locke [facility] STRESS ECHO 2019-05-06 14:14:07 Wilton Locke [facility] 2D ECHO W/ DOPPLER (CW/PW/COLOR) 2019-05-06 13:33:00 Wilton Locke [facility] ECG 12-LEAD 2019-05-06 12:47:01 Wilton Locke [facility] BLOOD TYPING, AUTOMATED 2019-05-06 12:37:00 Wilton Locke [facility] Plan of Care Planned Activity Planned Date Details Comments Source Future Scheduled Test 2020-05-25 00:00:00 INFLUENZA VACCINE (#1) [code = INFLUENZA VACCINE (#1)] [facility] Future Scheduled Test 2019-08-27 00:00:00 Hemoglobin A1c clarissa surement (procedure) [code = 87077442] [facility] Future Scheduled Test 2017-07-26 00:00:00 MEDICARE ANNUAL WE LLNESS (YEAR 2 or FIRST YEAR if no IPPE) [code = MEDICARE ANNUAL WELLNESS (YEAR 2 or FIRST YEAR if no IPPE)] [facility] Future Scheduled Test 2017-06-13 00:00:00 PNEUMOCOCCAL VACCI NE 2-64 YEARS AT RISK (2 of 3 - PCV13) [code = PNEUMOCOCCAL VACCINE 2-64 YEARS AT RISK (2 of 3 - PCV13)] [facility] Future Scheduled Test 1976 00:00:00 DIABETIC EYE EXAM [code = DIABETIC EYE EXAM] [facility] Future Scheduled Test 1976 00:00:00 Diabetic foot exam ination (regime/therapy) [code = 995503374] [facility] Future Scheduled Test 1976 00:00:00 Urine screening fo r protein (procedure) [code = 090601016] [facility] Future Scheduled Test 1966 00:00:00 Screening for elidia gnant neoplasm of colon (procedure) [code = 014811428] [facility] Inst[facility] Instilling Ear Drops [facility] Instructions Otitis Externa - Adult [facility] Instructions Ear Pain - Adult [facility] Instructions Infection Control [facility] Encounters Start Date/Time End Date/Time [facility] Ad[facility] ID Source 2020-04-19 22:53:00 2020-04-22 13:16:00 Discharged Inpatient 1 ROBBY RAM [facility] [id number] [facility] 2018-12-31 11:43:00 2018-12-31 17:03:00 Departed Emergency Room [facility] [id number] [facility] 2017-12-20 17:53:00 2017-12-21 02:19:00 Departed Emergency Room [facility] [id number] [facility] 2017-07-07 20:46:00 2017-07-08 14:10:00 Discharged Inpatient (obs) ER EMMAAGUILA DAVIS [facility] [id number] [facility] Results Test Description Test Time Test Comments Results Result Comments Source Capillary blood glucose measurement by glucometer (mas s/volume) 2020-04-22 10:38:00 Test Item Bedside Glucose (test code = 79614-9) 259 70-120 Meter ID: [id number] automated count (number/volume)2020-04-22 05:40:00* Test Item Value Reference Range Interpretation Comments White Blood Count (test code = 6690-2) 8.46 4.8-10.8 [facility] erythrocytes automated count (number/volume)2020-04-22 05:40:00* Test Item Value Reference Range Interpretation Comments Red Blood Count (test code = 789-8) 3.77 4.3-5.7 [facility] hemoglobin measurement (moles/volume)2020-04-22 05:40:00* Test Item Value Reference Range Interpretation Comments Hemoglobin (test code = 73308-6) 10.7 14.0-18.0 [facility] Paso[facility] blood hematocrit (volume fraction)2020-04-22 05:40:00* Test Item Value Reference Range Interpretation Comments Hematocrit (test code = 4544-3) 33.4 38.2-49.6 [facility] Paso[facility]ated erythrocyte mean corpuscular abmogh6457-20-09 05:40:00* Test Item Value Reference Range Interpretation Comments Mean Corpuscular Volume (test code = 787-2) 88.6 81-99 [facility] Paso[facility]ated erythrocyte mean corpuscular hemoglobin (mass per erythrocyte)2020-04-22 05:40:00* Test Item Value Reference Range Interpretation Comments Mean Corpuscular Hemoglobin (test code = 785-6) 28.4 28-32 [facility] Paso[facility] erythrocyte mean corpuscular hemoglobin concentration measurement (mass/volume)2020-04-22 05:40:00* Test Item Value Reference Range Interpretation Comments Mean Corpuscular Hemoglobin Concent (test code = 786-4) 32.0 31-35 [facility] PasoRDW PhoVe-Wbv5638-31-30 05:40:00* Test Item Value Reference Range Interpretation Comments Red Cell Distribution Width (test code = 39021-1) 12.9 11.7 -14.4 [facility] Paso[facility] blood platelet count (count/volume)2020-04-22 05:40:00* Test Item Value Reference Range Interpretation Comments Platelet Count (test code = 777-3) 225 140-360 [facility] Paso[facility] blood segmented neutrophil count as percentage of total txqufunmfu6106-01-85 05:40:00* Test Item Value Reference Range Interpretation Comments Neutrophils (%) (Auto) (test code = 23365-3) 63.8 38.7-80.0 [facility] Paso[facility] blood lymphocyte count as percentage ot total ddwzwojtcm2104-21-92 05:40:00* Test Item Value Reference Range Interpretation Comments Lymphocytes (%) (Auto) (test code = 736-9) 20.1 18.0-39.1 [facility] Paso[facility] blood monocyte count as percentage of total mpumavfjfq3476-66-85 05:40:00* Test Item Value Reference Range Interpretation Comments Monocytes (%) (Auto) (test code = 5905-5) 13.2 4.4-11.3 [facility] Paso[facility] blood eosinophil count as percentage of total tvdlvbfxal0842-14-68 05:40:00* Test Item Value Reference Range Interpretation Comments Eosinophils (%) (Auto) (test code = 713-8) 1.3 0.0-6.0 [facility] Paso[facility] blood basophil count as percentage of total meckeoaqdm4059-53-87 05:40:00* Test Item Value Reference Range Interpretation Comments Basophils (%) (Auto) (test code = 706-2) 0.9 0.0-1.0 [facility] PasoFluoroscopic procedure less than one hour qudzamkh4958-10-08 05:40:00* Test Item Value Reference Range Interpretation Comments IM GRANULOCYTES % (test code = IM GRANULOCYTES %) 0.7 0.0- 1.0 [facility] Paso[facility] blood neutrophil count 2020-04-22 05:40:00* Test Item Value Reference Range Interpretation Comments Neutrophils # (Auto) (test code = 751-8) 5.4 2.1-6.9 [facility] Paso[facility] lymphocytes count (number/volume) 2020-04-22 05:40:00* Test Item Value Reference Range Interpretation Comments Lymphocytes # (Auto) (test code = 24706-4) 1.7 1.0-3.2 [facility] Paso[facility] monocytes automated count (number/volume)2020-04-22 05:40:00* Test Item Value Reference Range Interpretation Comments Monocytes # (Auto) (test code = 742-7) 1.1 0.2-0.8 [facility] Paso[facility] blood eosinophil count 2020-04-22 05:40:00* Test Item Value Reference Range Interpretation Comments Eosinophils # (Auto) (test code = 711-2) 0.1 0.0-0.4 [facility] PasoAutomated blood basophil count (count/volume)2020-04-22 05:40:00* Test Item Value Reference Range Interpretation Comments Basophils # (Auto) (test code = 704-7) 0.1 0.0-0.1 [facility] PasoFluoroscopic procedure less than one hour nlhlosdg7641-24-37 05:40:00* Test Item Value Reference Range Interpretation Comments Absolute Immature Granulocyte (auto (osman t code = Absolute Immature Granulocyte (auto) 0.06 0-0.[address] [facility] plasma sodium measurement (moles/volume)2020-04-22 05:10:00* Test Item Value Reference Range Interpretation Comments Sodium Level (test code = 2951-2) 135 136-[address] [facility] [facility] or plasma potassium measurement (moles/volume)2020-04-22 05:10:00* Test Item Value Reference Range Interpretation Comments Potassium Level (test code = 2823-3) 4.4 3.5-5.[address] [facility] or plasma chloride measurement (moles/volume)2020-04-22 05:10:00* Test Item Value Reference Range Interpretation Comments Chloride Level (test code = 2075-0) 95 98-[address] [facility] or plasma carbon dioxide, total measurement (moles/volume)2020-04-22 05:10:00* Test Item Value Reference Range Interpretation Comments Carbon Dioxide Level (test code = 2028-9) 24 22-[address] [facility] or plasma anion lqo2340-98-95 05:10:00* Test Item Value Reference Range Interpretation Comments Anion Gap (test code = 39571-3) 20.4 8-[address] [facility] or plasma urea nitrogen measurement (mass/volume)2020-04-22 05:10:00* Test Item Value Reference Range Interpretation Comments Blood Urea Nitrogen (test code = 3094-0) 38 7-[address] [facility] or plasma creatinine measurement (mass/volume)2020-04-22 05:10:00* Test Item Value Reference Range Interpretation Comments Creatinine (test code = 2160-0) 8.80 0.72-1.[address] [facility] or plasma urea nitrogen/creatinine mass rckhk3329-56-06 05:10:00* Test Item Value Reference Range Interpretation Comments BUN/Creatinine Ratio (test code = 3097-3) 4 6-25 [facility] PasoEstimated glomerular filtration rate (GFR) fijtmyzrgwjmm3224-23-97 05:10:00* Test Item Value Reference Range Interpretation Comments Estimat Glomerular Filtration Rate (test code = 054106833) 6 >60 Ranges were taken from the National Kidney Disease Education Program and the [facility] [employer] literature.Reference ranges:60 or greater: Utshiv54-79 ( for 3 consecutive months): Chronic kidney disease 15 or less: Kidney failureFoundation Surgical Hospital of El PasoGlucose lzmfdfjoeea8389-62-11 05:10:00* Test Item Value Reference Range Interpretation Comments Glucose Level (test code = SXK4880) 179 74-[address] [facility] or plasma calcium measurement (mass/volume)2020-04-22 05:10:00* Test Item Value Reference Range Interpretation Comments Calcium Level (test code = 03122-6) 8.0 8.4-10.[address] [facility] or plasma total bilirubin measurement (mass/volume)2020-04-22 05:10:00* Test Item Value Reference Range Interpretation Comments Total Bilirubin (test code = 1975-2) 0.4 0.2-1.2 [facility] PasoFluoroscopic procedure less than one hour vqjhegxs0156-85-95 05:10:00* Test Item Value Reference Range Interpretation Comments Aspartate Amino Transf (AST/SGOT) (test code = Aspartate Amino Transf (AST/SGOT)) 9 5-[address] [facility] or plasma alanine aminotransferase measurement (enzymatic activity/volume)2020-04-22 05:10:00* Test Item Value Reference Range Interpretation Comments Alanine Aminotransferase (ALT/SGPT) (test code = 1742-6) 11 0-[address] or plasma protein measurement (mass/volume)2020-04-22 05:10:00* Test Item Value Reference Range Interpretation Comments Total Protein (test code = 2885-2) 7.1 6.5-8.[address] or plasma albumin measurement (mass/volume)2020-04-22 05:10:00* Test Item Value Reference Range Interpretation Comments Albumin (test code = 1751-7) 2.6 3.5-5.0 [facility] PasoPlasma globulin measurement (mass/volume) 2020-04-22 05:10:00* Test Item Value Reference Range Interpretation Comments Globulin (test code = 91075-6) 4.5 2.3-3.[address] or plasma albumin/globulin mass hxlal2411-23-46 05:10:00* Test Item Value Reference Range Interpretation Comments Albumin/Globulin Ratio (test code = 1759-0) 0.6 0.8-2.[address] [facility] or plasma alkaline phosphatase measurement (enzymatic activity/volume)2020-04-22 05:10:00* Test Item Value Reference Range Interpretation Comments Alkaline Phosphatase (test code = 6768-6) 149 40-[address] [facility]um hepatitis B virus surface antibody assay by radioimmunoassay (units/volume)2020-04-21 17:30:00* Test Item Value Reference Range Interpretation Comments Hepatitis B Surface Antibody, Quant (test code = 5194-6) >1000.0 Immunity>9.9 Status of Immunity Anti-HBs Level Inconsistent with Immunity 0.0 - 9.9Consistent with Immunity >9.9[facility] or plasma hepatitis B virus core antibody detection by ffccsmivmer0546-36-80 17:30:00* Test Item Value Reference Range Interpretation Comments Hepatitis B Core Total Antibody (test code = 01990-1) Negative Negative [facility] or plasma hepatitis B virus surface antigen detection by yurgmjxzmhx4117-91-15 17:30:00* Test Item Value Reference Range Interpretation Comments Hepatitis B Surface Antigen (test code = 5196-1) Negative Negat tadeo [facility] or plasma hepatitis B virus core IgM antibody detection by ahuupbsxwxk5038-17-40 17:30:00* Test Item Value Reference Range Interpretation Comments Hepatitis B Core IgM Antibody (test code = 15967-4) Negative Ne gative Performed at: [address] [id number] Director: Mannie Gunter MD, Phone: [phone] [facility] CampusFluoroscopic procedure less than one hour nyltqegu8381-73-95 05:05:00* Test Item Value Reference Range Interpretation Comments Hemoglobin A1c Percent (test code = Hemoglobin A1c Percent) 13.6 4.0-7.0 [facility]CHEST SINGLE (PORTABLE)2020-04-19 22:15:00 [facility] [address] [place] [address] Patient Name: ELIDIA ZAMORA MR #: [id number] : 1965 Age/Sex: 54/M Req #: [id number] Adm Physician: Ordered by: ROBBY RAM MD Report #: [id number] Location: ER Room/Bed: Procedure: [id number] DX/CHEST SINGLE (PORTABLE) Exam Date: 04/19/20 Exam Time: 211 4 REPORT STATUS: Signed EXAMINAT ION: CHEST SINGLE (PORTABLE) INDICATION: Fever COMPARISON: Radiograph dated 07/07/2017 FINDINGS: TUBES and LINES: None. LUNGS: Low lung volumes. Lungs are clear. No consolidations. PLEUR A: No pleural effusion or pneumothorax. HEART AND MEDIASTINUM: The cardio mediastinal silhouette is unremarkable. BONES AND SOFT TISSUES: No acu te osseous lesion. Soft tissues are unremarkable. UPPER ABDOMEN: No free air under the diaphragm. IMPRESSION: No acute thoracic radiograp hic abnormality. Signed by: Umang Bateman MD on 04/19/2020 10:19 PM Dictated By: UMANG BATEMAN MD 18 Transcribed By: STEPHEN on 04/19/202218 COPY TO: ROBBY HERNADEZ MD Fluoroscopic procedure less than one hour duration 2020-04-19 20:53:00* Test Item Value Reference Range Interpretation Comments Coronavirus (PCR) (test code = Coronavirus (PCR)) NOT DETECTED NOTD ETECTED [employer] SARS-CoV-2 assay is a nucleic amplification test intended for the qualitative detection of RNA from SARS-CoV-2 from nasopharyngeal ([employer]CHNOLOG[employer]ELOP[employer]) specimens. It is used under Emergency Use Authorization (EUA) by FDA.A positive result is indicative of the presence of SARS-CoV-2 RNA. Clinical correlation with patient history and other diagnostic information is necessary to determine patient infe ction status.A negative (Not Detected) result does not preclude SARS-CoV-2 infec tion. Clinical Correlation with patient history and other diagnostic information should be used in patient management decisions.Invalid: Unable to generate a va lid result on this specimen. Please submit a new specimen for reprat testing oc clinically indicated.Tesing performed by:[facility] [address] [place] [address] [id number], Robby Ordonez MD, PhD [facility] PasoFluoroscopic procedure less than one hour [id number] 20:50:00* Test Item Value Reference Range Interpretation Comments Lactic Acid Level (test code = Lactic Acid Level) 1.6 0.5- 2.[address] [facility] or plasma creatine kinase measurement (enzymatic activity/volume)2020-04-19 20:50:00* Test Item Value Reference Range Interpretation Comments Creatine Kinase (test code = 2157-6) 144 30-[address] [facility] or plasma creatine kinase MB measurement (mass/volume)2020-04-19 20:50:00* Test Item Value Reference Range Interpretation Comments Creatine Kinase MB (test code = 83314-9) 2.20 0-5.0 [facility] PasoTroponin I measurement by highly sensitive enzyme [id number] 20:50:00* Test Item Value Reference Range Interpretation Comments Troponin I (test code = 49641-2) 0.051 0-0.300 [facility] PasoBlood [id number] 20:50:00* Test Item Value Reference Range Interpretation Comments Blood Culture (test code = 59448444) NO GROWTH AFTER 48 HOURS [facility]2D Echo W/Doppler(CW/PW/Color)2019-05-08 14:53:08Ejection FractionSLEH ECHO HEARTLAB SHANNA CPACSInterface, External Ris In - 05/08/2019 2:53 PM CDTTransthoracic Echocardiography Report (TTE) Demographics Patient Name ELIDIA ZAMORA Date of Study 05/06/2019 CLYDE KEITH Gender Male Visit Number [id number] Race Room Number OP Number Date of 1965 Referring Samantha Damon Physician Age 53 year(s) Still Pump Operator Chandni Reardon [facility] Interpreting Oscar Schuler MD Physician Fellow CHERYL Mortensen Procedure Type of Study TTE procedure:2DECHO W DOPPLER(CW/PW/COLOR) (Routine) Indications:Pre-surgical evaluation of organ transplant.Clinical HistoryHGB 12.5HCT 40.2 %CAD, DM, ESRD, HTN, Obesitys/p Coronary stent (2018)Contrast Medium: Definity. Amount - 2 mlHeight: 67 inches Weight: 104.33 kg (230 lbs) BSA: 2.15 m^2 BMI: 36.02kg/m^2HR: 78 bpm BP: 125/85 mmHg Summary 1. The left ventricle is chamber size (by vol index) is normal. Mild LVH. All of the LV segments contract normally. LVEF by Spears's method of disk assessment is normal (>60%). Grade 1 diastolic dysfunction (impaired relaxation and low- normal LA pressure). LA size is normal (16-34 ml/m2) . 2. The right ventricular chamber size and systolic function are within normal limits. RA size is normal. Unable to estimate peak systolic PA pressure; inadequate TR velocity signal. 3. No significant valvular abnormalities. Previous Study No prior exam available for comparison. Signature Findings Technical Quality: Technically adequate exam. Left Ventricle LV en docardium is well visualized with IV ultrasound enhancing agent. The left ventricle is chamber size (by vol index) is normal (male - LVED vol - 34-74ml/m2). LV septal thickness is normal (0.6-1.1cm). LV po sterior wall thickness is mildly increased (1.2-1.4cm) . All of the LV segments contract normally . LVEF by Spears's method of disk assessment is n ormal (>60%) . Grade 1 diastolic dysfunction (impaired relaxation and low-normal LA pressure). Left Atrium LA size is normal (16-34 ml/m2) . Right Ventricle The right ventricular chamber size and systolic function are within normal limits. Right Atrium RA size is normal. Aortic Valve Normal tri-leaflet Aortic Valve. Aortic annulus appears calcified . Mitral Valve Leaflet motion - normal. Tricuspid Valve Unable to estimate peak systolic PA pressure; inadequate TR velocity signal. Pulmonic Valve Normal PV structure and function by limited views and Doppler. Aorta Aortic root size (SInus of Valsalva diameter) is normal . Pericardium No significant pericardial effusion is visualized. IVC/SVC/PA/PV/Pleural The estimated RA pressure by IVC dynamics 5- 10mmHg . Chambers/Structures Left Atrium LA Volume: 53.36 ml LA Vol. Index: 25 ml/m^2 Left Ventricle LVIDd: 4 cm LVIDs: 2.35 cm LV Septum Diastolic: 1.2 cm LV PW Diastolic: 1.22 cm LV FS: 41.3 % LVEDV Spears's:111.23 ml LVESV Spears's:41.06 ml LVEDVI: 52 ml/m^2 LVEF Spears's: 63.1 % LVESVI: 19 ml/m^2 LVOT Diameter: 1.88 cm Aorta Ao Root S of Linda.: 3.3 cm Doppler/Quantitative Measurements Mitral Valve MV Peak E-Wave: 0.55 m/s MV Peak A-Wave: 0.83 m/s E/A Ratio: 0.67 Peak Gradient: 1.22 mmHg Deceleration Time: 262.4 msec MV Shashi. Peak: Tissue Doppler E' Septal Velocity: 0.04 m/s E/E': 6.54 E' Lateral Velocity: 0.08 m/s Aortic Valve Peak Velocity: 1.28 m/s Mean Velocity: 0.71 m/s Peak Gradient: 6.58 mmHg Mean Gradient: 2.4 mmHg AV Area (continuity): 2.58 cm^2 AV VTI: 25.72 cm AV DVI: 0.93 LVOT Peak Velocity: 0.85 m/s Peak Gradient: 2.89 mmHg Mean Velocity: 0.4 m/s Mean Gradient: 0.89 mmHg LVOT Diameter: 1.88 cm LVOT VTI: 23.92 cm LVOT Area: 2.78 cm^2 LVOT SV:66.37 ml LVOT CO: 5.18 l/min LVOT CI: 2.41 l/min/m^2 RVOT RVOT VTI (PW): 12.43 cm Pulmonic Valve Peak Velocity: 0.79 m/s Peak Gradient: 2.49 mmHg Mean Velocity: 0.59 m/s Mean Gradient: 1.39 mmHg [facility] With [id number] 14:49:43Ejection FractionSLEH ECHO HEARTLAB MKCKESSON CPACSInterface, External Ris In - 05/08/2019 2:49 PM CDTStress Echocardiography Report Demographics Patient Name ELIDIA ZAMORA Date of Study 05/06/2019 CLYDE KEITH Gender Male Visit Number [id number] Race Room Number OP Number Date of 1965 Referring Samantha Damon Physician Age 53 year(s) Still Pump Operator Chandni Reardon RDCS Interpreting Oscar Schuler MD Physician Fellow CHERYL Mortensen Procedure Type of Study Stress procedure:STRESS(TMT)ECHO W/TMT TRACING (Routine) Indications:Acute Chest Pain/ Suspected CAD.Clinical HistoryHGB 12.5HCT 40.2 %CAD, DM, ESRD, HTN, Obesitys/p Coronary stent (2018)Contrast Medium: Definity. Amount - 2 mlHeight: 67 inches Weight: 104.33 kg (230 lbs) BSA: 2.15 m^2 BMI: 36.02kg/m^2HR: 75 bpm BP: 125/85 mmHg Rest ECG Baseline ECG notable for normal sinus rhythm. No significant ST elevations or depressions on baseline ECG. Stress Stress Type: Pharmacologic Predicted HR: 168 bpm Results Global LVEF (rest): Normal (LVEF >50%) Global LVEF (stress): Hyperkinetic (LVEF >70%) ECG Stress and recovery ECG without significant ST elevations or depressions. Arrhythmias Stress ECG notable for brief episode of ventricular trigeminy, occasional PVCs. Summary Indications: pre surgical evaluation for organ transplantation Procedure done: Dobutamine stress echocardiogram. Complications: None Medications: Dobutamine infusion with peak rate of 40 mcg/kg/min. ECG: The resting heart rate was 77 bpm. Resting electrocardiogram showed normal sinus rhythm with no ischemic changes. The heart rate increased to 148 bpm which corresponded to 88% maximum predicted heart rate. There were no ischemic ECG changes noted. Occasional PVCs and rare ventricular trigeminy noted. The blood pressure at baseline was 125/85 mm Hg and was 172/70 at peak stress. The patient did not develop any significant symptoms. Echocardiogram: Resting echocardiogram showed normal LV systolic function, estimated LVEF of >60%. Normal wall motion. At peak stress, there is hypokinesis of all apical segments and LV apex with complete recovery of all the segments in 5 minutes - post stress scanning. All other segments showed appropriate LV augmentation. Suggestive of mid LAD ischemia. Conclusion: Positive Dobutamine Stress echocardiogram for inducible ischemia in the mid LAD territory, at a diagnostic level of stress. Signature [facility] CenterU/S, ABDOM[facility]AL, [id number] 16:42:00Reason for Exam:-> esrd/kidney transplant evaluationFINAL REPORT Ultrasound of the Abdomen, 05/06/2019. Clinical History: End-stage renal disease. Comparison: None. Discussion:Sonographic evaluation of the abdomen is performed. Liver: 16.2 cm in length at the right midclavicular line, normal in size. Normal echogenicity. Homogeneous echotexture. No mass. Main portal vein diameter 1.3 cm. Biliary tree: Common duct 5 mm. No biliary dilatation. Gallbladder: No gallstones. No wall thickening. No pericholecystic fluid. Absent sonographic Campoverde sign. Pancreas: Obscured by bowel gas. Ascites: None. Spleen: 12.3 cm in length, normal in size. Kidneys: Right kidney 9.8 cm in length, normal in size, with cortical thickness of 1.8 cm. Left kidney 10.3 cm in length, normal in size, with cortical thickness of 1.1 cm. Normal cortical echogenicity. No mass. No shadowing calculus. No hydronephrosis. IVC/Aorta: Segments partially seen. Unremarkable. Impression: Unremarkable abdominal ultrasound. Signed: Gema Nicholas MDReport Verified Date/Time: 05/06/2019 16:42:41 Reading Location: [address] Radiology Reading Room abdomen [id number] 16:42:00Interface, External Ris In - 05/06/2019 4:44 PM CDTFINAL REPORT Ultrasound of the Abdomen, 05/06/2019. Clinical History: End-stage renal disease. Comparison: None. Discussion:Sonographic evaluation of the abdomen is performed. Liver: 16.2 cm in length at the right midclavicular line, normal in size. Normal echogenicity. Homogeneous echotexture. No mass. Main portal vein diameter 1.3 cm. Biliary tree: Common duct 5 mm. No biliary dilatation. Gallbladder: No gallstones. No wall thickening. No pericholecystic fluid. Absent sonographic Campoverde sign. Pancreas: Obscured by bowel gas. Ascites: None. Spleen: 12.3 cm in length, normal in size. Kidneys: Right kidney 9.8 cm in length, normal in size, with cortical thickness of 1.8 cm. Left kidney 10.3 cm in length, normal in size, with cortical thickness of 1.1 cm. Normal cortical echogenicity. No mass. No shadowing calculus. No hydronephrosis. IVC/Aorta: Segments partially seen. Unremarkable. Impression: Unremarkable abdominal ultrasound. Signed: Gema Nicholas Verified Date/Time: 05/06/2019 16:42:41 Reading Location: [address] Radiology Reading Room [facility] CenterRAD, CHEST, 2 [id number] 16:25:00Reason for Exam:->esrd/kidney transplant evaluationFINAL REPORT Chest, PA and lateral. History: End-stage renal disease. Comparison: None available. Discussion: The cardiomediastinal silhouette and pulmonary vasculature are within normal limits. The lungs are clear without evidence of consolidation or effusion. There are no acute osseous abnormalities. The soft tissues are unremarkable. IMPRESSION: No acute cardiopulmonary abnormality. Signed: Gema Nicholas Verified Date/Time: 05/06/2019 16:25:39 Reading Location: [address] Radiology Reading Room chest 2 [id number] 16:25:00Interface, External Ris In - 05/06/2019 4:27 PM CDTFINAL REPORT Chest, PA and lateral. History: End-stage renal disease. Comparison: None available. Discussion: The cardiomediastinal silhouette and pulmonary vasculature are within normal limits. The lungs are clear without evidence of consolidation or effusion. There are no acute osseous abnormalities. The soft tissues are unremarkable. IMPRESSION: No acute cardiopulmonary abnormality. Signed: Gema Nicholas Verified Date/Time: 05/06/2019 16:25:39 Reading Location: [address] Radiology Reading Room [facility] CenterBlood typing, [id number] 14:38:00* Test Item Value Reference Range Interpretation Comments ABO/RH AUTOMATED (ALBERTO) (test code = 2260) O POSITIVE [facility] CenterECG 12 [id number] 13:59:59Interface, External Ris In - 05/06/2019 2:00 PM CDTVentricular Rate 81 BPMAtrial Rate 81 BPMP-R Interval 186 msQRS Duration 82 msQ-T Interval 424 msQTC Calculation(Bazekam) 492 msP Bieber 55 degreesR Bieber 27 degreesT Bieber 48 degreesNormal sinus rhythmProlonged QTAbnormal ECGNo previous ECGs availableConfirmed by Yvonne rice MD, Roberto ([id number]) on 05/06/2019 1:59:56 PMCH[facility] CaliforniaUS ABDOMEN [id number] 08:50:00 [place] [address] Patient Name: ELIDIA ZAMORA MR #: [id number] : 1965 Age/Sex: 53/M Req #: [id number] Adm Physician: Ordered by: KOKO MERAZ MD Report #: [id number] Location: Room/Bed: Procedure: US/US A MONSE COMPLETE Exam Date: 02/27/19 Exam Time: 831 REPORT STATUS: Signed EXAM: US A BDAGGIE COMPLETE INDICATION: Right upper quadrant abdominal pain COMP ARISON: None TECHNIQUE: Transverse and longitudinal chávez scale and color d oppler sonographic images of the abdomen were obtained. FINDINGS: LIVER 15.2 cm in the right midclavicular line. Normal echogenicity of the li sandra with normal contour, no masses. SPLEEN 11.6 cm in maximum diameter. Normal echogenicity, no masses. GALLBLADDER No gallbladder wall thickeni ng, distension, stone, or pericholecystic fluid. Negative reported sonographic Campoverde's sign. BILE DUCTS No intra nor extra-hepatic biliary dilation. Common bile duct measures 0.2 cm PANCREAS: Not well visualized due to over lying bowel gas. RIGHT KIDNEY: 10.6 cm Echogenicity: Normal Collecting System: No hydronephrosis Stones: None Cyst/Mass: None LEFT KIDNEY: 10.9 cm Echogenicity: Normal Collecting System: No hydronephrosis Stones: None Cyst/Mass: None VESSELS: Aorta: Visualized portions are within n ormal size limits. The proximal portion is not well visualized due to overlyin g bowel gas. Inferior Vena Cava: Not well visualized due to overlying bowel g as. Main Portal Vein: 0.6 cm, normal size with hepatopetal flow. FREE FL UID: None IMPRESSION: Unremarkable abdominal ultrasound. Signed by: Dr. Kimberlee Aguilar MD on 02/27/2019 8:53 AM Dictated By: KIMBERLEE AGUILAR MD Electr onically Signed By: KIMBERLEE AGUILAR MD on 02/27/19852 Transcribed By: STEPHEN on 02/27/19 08 COPY TO: KOKO MERAZ MD CYTOMEGALOVIRUS ANTIBODY, [id number] 17:15:00* Test Item Value Reference Range Interpretation Comments CYTOMEGALOVIRUS, IGG (BooodlAKER) (test code = 3429) Positive Negat tadeo, Equivocal A CMV IgG Result Interpretation: </= 0.8 Al Negative 0.9-1.0 Al Equivocal > /=1.1 Al PositiveCYTOMEGALOVIRUS ANTIBODY, [id number] 17:15:00* Test Item Value Reference Range Interpretation Comments CYTOMEGALOVIRUS IGM ANTIBODY (BooodlAKER) (test code = 3437) Neg ative Negative, Equivocal CMV IgM Result Interpretation: </= 0.8 Al Negative 0.9-1.0 Al Equivocal > /= 1.1 Al PositiveEBV ANTIBODY, [id number] 17:14:00* Test Item Value Reference Range Interpretation Comments LAKESHA FREDERICK VIRAL CAPSID ANTIGEN IGM (BooodlAKER) (test code = 3418) Negative Negative, Equivocal Lakesha Frederick Viral Capsid Antigen IgM Result Interpretation: </= 0.8 Al Negative 0.9-1.0 Al Equivocal >/= 1.1 Al PositiveEBV ANTIBODY, [id number] 17:13:00* Test Item Value Reference Range Interpretation Comments LAKESHA FREDERICK VIRAL CAPSID ANTIGEN IGG (BEAKER) (test code = 3415) Positive Negative, Equivocal A Lakesha Frederick Viral Capsid Antigen IgG Result Interpretation: </= 0.8 Al Negative 0.9-1.0 Al Equivocal >/= 1.1 Al PositiveVARICELLA ZOSTER ANTIBODY, [id number] 17:07:00* Test Item Value Reference Range Interpretation Comments VARICELLA ZOSTER IGG (AL) (BEAKER) (test code = 3197) 1.9 VARICELLA ZOSTER RESULT INTERPRETATIONS: <=0.8 Al Nonreactive: Presumed non-immune to VZV 0.9-1.0 Al Equivocal >=1.1 Al Reactive: Presumed immune to VZVHEPATITIS B SURFACE [id number] 16:36:00 * Test Item Value Reference Range Interpretation Comments HEPATITIS B SURFACE ANTIBODY (BEAKER) (test code = 647) 9.4 mIU/mL <8.0 H HEPATITIS B SURFACE [id number] 16:28:00* Test Item Value Reference Range Interpretation Comments HEPATITIS B SURFACE ANTIGEN (2) (BEAKER) (test code = 2585) Nonreactive Nonreactive HEPATITIS B CORE ANTIBODY, [id number] 16:28:00* Test Item Value Reference Range Interpretation Comments HEPATITIS B CORE IGM ANTIBODY (BEAKER) (test code = 645) Non reactive Nonreactive HEPATITIS C [id number] 16:28:00* Test Item Value Reference Range Interpretation Comments HEPATITIS C ANTIBODY (BEAKER) (test code = 367) Nonreactive Nonrea ctive HIV-1 ANTIGEN WITH HIV-1/2 [id number] 16:28:00* Test Item Value Reference Range Interpretation Comments HIV-1 ANTIGEN WITH HIV 1\\T\\2 ANTIBODY (2) (BEAKER) (te st code = 2586) Nonreactive Nonreactive HEMOGLOBIN [id number] 16:04:00* Test Item Value Reference Range Interpretation Comments HEMOGLOBIN A1C (BEAKER) (test code = 368) 7.3 % 4.3-6.1 H [id number] 14:28:00* Test Item Value Reference Range Interpretation Comments RPR SCREEN (BEAKER) (test code = 420) Nonreactive Nonreactive PTH, [id number] 14:23:00* Test Item Value Reference Range Interpretation Comments PARATHYROID HORMONE INTACT (BEAKER) (test code = 577) 399.4 pg/mL 8.5-72.5 H COMPREHENSIVE METABOLIC [id number] 14:21:00* Test Item Value Reference Range Interpretation Comments TOTAL PROTEIN (BEAKER) (test code = 770) 8.5 gm/dL 6.0-8.3 H ALBUMIN (BEAKER) (test code = 1145) 4.3 g/dL 3.5-5.0 ALKALINE PHOSPHATASE (BEAKER) (test code = 346) 174 U/L 40-150 H BILIRUBIN TOTAL (BEAKER) (test code = 377) 0.4 mg/dL 0.2-1.2 SODIUM (BEAKER) (test code = 381) 140 meq/L 136-145 POTASSIUM (BEAKER) (test code = 379) 4.3 meq/L 3.5-5.1 CHLORIDE (BEAKER) (test code = 382) 96 meq/L 98-107 L CO2 (BEAKER) (test code = 355) 28 meq/L 22-29 BLOOD UREA NITROGEN (BEAKER) (test code = 354) 58 mg/dL 7-21 H CREATININE (BEAKER) (test code = 358) 11.50 mg/dL 0.57-1.25 H GLUCOSE RANDOM (BEAKER) (test code = 652) 178 mg/dL 70-105 H CALCIUM (BEAKER) (test code = 697) 9.2 mg/dL 8.4-10.2 AST (SGOT) (BEAKER) (test code = 353) 14 U/L 5-34 ALT (SGPT) (BEAKER) (test code = 347) 29 U/L 6-55 EGFR (BEAKER) (test code = 1092) 5 mL/min/1.73 sq m ESTIMATED GFR IS NOT ACCURATE CREATININE CLEARANCE IN PREDICTING GLOMERULAR FILTRATION RATE. ESTIMATED GFR IS NOT APPLICABLE FOR DIALYSIS PATIENTS. URIC [id number] 14:20:00* Test Item Value Reference Range Interpretation Comments URIC ACID (BEAKER) (test code = 773) 6.2 mg/dL 2.6-7.2 [id number] 14:20:00* Test Item Value Reference Range Interpretation Comments PHOSPHORUS (BEAKER) (test code = 604) 6.4 mg/dL 2.3-4.7 H LIPID [id number] 14:20:00* Test Item Value Reference Range Interpretation Comments TRIGLYCERIDES (BEAKER) (test code = 540) 297 mg/dL CHOLESTEROL (BEAKER) (test code = 631) 170 mg/dL HDL CHOLESTEROL (BEAKER) (test code = 976) 29 mg/dL LDL CHOLESTEROL CALCULATED (BEAKER) (test code = 633) 82 mg/dL Triglyceride Reference Range: Low Risk <150 Borderline 150-199 High Risk 200-499 Very High Risk >=500Cholesterol Reference Range: Low Risk <200 Borderline 200-239 High Risk >240HDL Cholesterol Reference Range: Low Risk >=60 High Risk <40LDL Cholesterol Reference Range: Optimal <100 Near Optimal 100-129 Borderline 130-159 High 160-189 Very High >=190 GAMMA GLUTAMYL TRANSFERASE (GGT)2019-02-25 14:20:00* Test Item Value Reference Range Interpretation Comments GAMMA GLUTAMYL TRANSFERASE (BEAKER) (test code = 364) 191 U/L 9-64 H LACTATE DEHYDROGENASE (LDH)2019-02-25 14:20:00* Test Item Value Reference Range Interpretation Comments LACTATE DEHYDROGENASE (BEAKER) (test code = 635) 228 U/L 125-2 20 H PT/[id number] 13:57:00* Test Item Value Reference Range Interpretation Comments PROTIME (BEAKER) (test code = 759) 14.6 seconds 11.9-14.2 H INR (BEAKER) (test code = 370) 1.2 <=5.9 PARTIAL THROMBOPLASTIN TIME (BEAKER) (test code = 760) 32.4 seconds 22.5-36.0 Effective 02/19/2019: PT Reference Range ChangeNew: 11.9-14.2 Previous: 11.7-14. 7RECOMMENDED COUMADIN/WARFARIN INR THERAPY RANGESSTANDARD DOSE: 2.0-3.0 Include s: PROPHYLAXIS for venous thrombosis, systemic embolization; TREATMENT for venou s thrombosis and/or pulmonary embolus.HIGH RISK: Target INR is 2.5-3.5 for patie nts wiht mechanical heart valves.PROTHROMBIN TIME/[id number] 13:56:00* Test Item Value Reference Range Interpretation Comments PROTIME (BEAKER) (test code = 759) 14.6 seconds 11.9-14.2 H INR (BEAKER) (test code = 370) 1.2 <=5.9 Effective 02/19/2019: PT Reference Range ChangeNew: 11.9-14.2 Previous: 11.7-14. 7RECOMMENDED COUMADIN/WARFARIN INR THERAPY RANGESSTANDARD DOSE: 2.0-3.0 Include s: PROPHYLAXIS for venous thrombosis, systemic embolization; TREATMENT for venou s thrombosis and/or pulmonary embolus.HIGH RISK: Target INR is 2.5-3.5 for patie nts wiht mechanical heart valves.CBC W/PLT COUNT & AUTO [id number] 13:45:00* Test Item Value Reference Range Interpretation Comments WHITE BLOOD CELL COUNT (BEAKER) (test code = 775) 11.0 K/ L 3.5- 10.5 H RED BLOOD CELL COUNT (BEAKER) (test code = 761) 4.42 M/ L 4.63-6 .08 L HEMOGLOBIN (BEAKER) (test code = 410) 12.5 GM/DL 13.7-17.5 L HEMATOCRIT (BEAKER) (test code = 411) 40.2 % 40.1-51.0 MEAN CORPUSCULAR VOLUME (BEAKER) (test code = 753) 91.0 fL 79. 0-92.2 MEAN CORPUSCULAR HEMOGLOBIN (BEAKER) (test code = 751) 28.3 pg 25.7-32.2 MEAN CORPUSCULAR HEMOGLOBIN CONC (BEAKER) (test code = 752) 31.1 GM/DL 32.3-36.5 L RED CELL DISTRIBUTION WIDTH (BEAKER) (test code = 412) 13.5 % 11.6-14.4 PLATELET COUNT (BEAKER) (test code = 756) 272 K/CU MM 150-450 MEAN PLATELET VOLUME (BEAKER) (test code = 754) 10.7 fL 9.4-12 .4 NUCLEATED RED BLOOD CELLS (BEAKER) (test code = 413) 0 /100 WBC 0 -0 NEUTROPHILS RELATIVE PERCENT (BEAKER) (test code = 429) 70 % LYMPHOCYTES RELATIVE PERCENT (BEAKER) (test code = 430) 17 % MONOCYTES RELATIVE PERCENT (BEAKER) (test code = 431) 9 % EOSINOPHILS RELATIVE PERCENT (BEAKER) (test code = 432) 2 % BASOPHILS RELATIVE PERCENT (BEAKER) (test code = 437) 1 % NEUTROPHILS ABSOLUTE COUNT (BEAKER) (test code = 670) 7.72 K/ L 1.78-5.38 H LYMPHOCYTES ABSOLUTE COUNT (BEAKER) (test code = 414) 1.91 K/ L 1.32-3.57 MONOCYTES ABSOLUTE COUNT (BEAKER) (test code = 415) 0.96 K/ L 0. 30-0.82 H EOSINOPHILS ABSOLUTE COUNT (BEAKER) (test code = 416) 0.20 K/ L 0.04-0.54 BASOPHILS ABSOLUTE COUNT (BEAKER) (test code = 417) 0.10 K/ L 0. 01-0.08 H IMMATURE GRANULOCYTES-RELATIVE PERCENT (BEAKER) (test code = 2801) 1 % 0-1 [id number] 13:46:00 RUN DATE: 01/30/19 [facility] PAGE 1 RUN TIME: 1346 Specimen Inqui ry RUN USER: INTERFACE PATIENT: ELIDIA ZAMORA JR ACCT #: [id number] LOC: [place] #: [id number] AGE/SX: 53/M ROOM: RE01/28/19REG DR: Koko Meraz MD : 67 BED: DIS: STATUS: DEP [facility] TLOC: SPEC #: [id number] RECD: 01/29/19 STATUS: FLY GONZALEZ #: [id number] SAKSHI: 01/28/19 DR: Koko Meraz MD ENTERED: 01/29/19 SP TYPE: COLON OTHR DR: James Archer MD ORDERED: GROSS COPIES TO: James Archer MD [address] [place] [address] Koko Meraz MD [address] [address] PROCEDURES: GROSS (01/30/19) TI SSUES: 1. ASCENDING COLON - POLYP 2. TRANSVERSE COLON - POLYP 3. SIGMOID - POLYP CLINICAL HISTORY COLLECTION DATE: 01/28/19 SCREENING FINAL DIAGNOSIS Ascending colon polyp, polypectomy: ADENOMATOUS POLYP NEGATIVE FOR HIGH GRADE DYSPLASIA OR MALIGNANCY Transverse colon polyp, polypectomy: ADENOMATOUS POLYP NEG ATIVE FOR HIGH GRADE DYSPLASIA OR MALIGNANCY Sigmoid colon polyp, polypectomy: HYPERPLASTIC POLYP WITH MILD CHRONIC INFLAMMATION NEG ATIVE FOR DYSPLASIA OR MALIGNANCY FA/sm D CONTINUED ON NEXT PAGE RUN DATE: 01/30/19 [place] [facility] PAGE 2 RUN TIME: 1346 Specimen Inquiry RUN USER: INTERFACE SPEC #: [id number] PATIENT: ELIDIA ZAMORA JR #[id number] (Continued)-- FINAL DIAGNOSIS (Continued) [phone] MACROSCOPIC The first specimen is received in formalin, labeled with the jerson ent's name, identified as "ascending colon polyp", and consists of two baez-pin k soft tissue measuring 0.2 cm each, submitted as (1). The second specim en is received in formalin, labeled with the patient's name, identified as "tr ansverse polyp", and consists of three baez biopsy tissue measuring 0.2 to 0.3 cm, submitted as (2). The third specimen is received in formalin, labeled with the patient's name, identified as "sigmoid polyp", and consists of two ta n biopsy tissue measuring 0.2 and 0.3 cm, submitted as (3). GROSS PE RFORMED AT [facility] [address] [facility] [place] [address] (p)[phone] MICROSCOPIC All of the stains, including any controls performed, stain appropriately. MICROSCOPIC PERFORMED AT [facility] [address] [facility] [place] [address] [phone])[phone] PERFO RMING SITE Diagnosis performed at: [facility] [place] [address] [facility] [address] Signed SIGNATURE ON FILE Shayla Mendoza MD 01/30/19 1346 END OF REPORT [id number] 13:16:00* Test Item Value Reference Range Interpretation Comments GLUBED (test code = GLUBED) 140 mg/dL 74-106 H Performed by certified cut to length operator at [facility] LYFSKBXQR0187-16-77 13:15:00* Test Item Value Reference Range Interpretation Comments POTASSIUM (test code = K) 4.5 mmol/L 3.5-5.1 N BASIC METABOLIC [id number] 13:24:00* Test Item Value Reference Range Interpretation Comments SODIUM (test code = NA) 137 mmol/L 136-145 N POTASSIUM (test code = K) 4.0 mmol/L 3.5-5.1 N CHLORIDE (test code = CL) 98.0 mmol/L 98-107 N CARBON DIOXIDE (test code = CO2) 30.0 mmol/L 21-32 N ANION GAP (test code = GAP) 13.0 10-20 N GLUCOSE (test code = GLU) 268 mg/dL 74-106 H BLOOD UREA NITROGEN (test code = BUN) 39 mg/dL 7-18 H GLOMERULAR FILTRATION RATE (test code = GFR) 6 mL/min >=60 Estimated GFR by using Modified MDRD formula.Chronic kidney disease is defined as either kidney damageor GFR <60 mL/min/1.73 m2 for >3 months. CREATININE (test code = CREAT) 9.60 mg/dL 0.7-1.3 H BUN/CREATININE RATIO (test code = BUN/CREA) 4.1 10-20 L CALCIUM (test code = CA) 8.5 mg/dL 8.5-10.1 N BASIC METABOLIC [id number] 13:16:00* Test Item Value Reference Range Interpretation Comments SODIUM (test code = NA) 137 mmol/L 136-145 N POTASSIUM (test code = K) 4.0 mmol/L 3.5-5.1 N CHLORIDE (test code = CL) 98.0 mmol/L 98-107 N CARBON DIOXIDE (test code = CO2) mmol/L 21-32 ANION GAP (test code = GAP) 10-20 GLUCOSE (test code = GLU) mg/dL 74-106 BLOOD UREA NITROGEN (test code = BUN) mg/dL 7-18 GLOMERULAR FILTRATION RATE (test code = GFR) mL/min >=60 CREATININE (test code = CREAT) mg/dL 0.7-1.3 BUN/CREATININE RATIO (test code = BUN/CREA) 10-20 CALCIUM (test code = CA) mg/dL 8.5-10.1 CBC W/AUTO [id number] 12:49:00* Test Item Value Reference Range Interpretation Comments WHITE BLOOD CELL (test code = WBC) 10.1 K/mm3 4.5-12.5 N RED BLOOD CELL (test code = RBC) 4.34 mill/mm3 4.0-5.8 N HEMOGLOBIN (test code = HGB) 12.3 gram/dL 13.0-17.5 L HEMATOCRIT (test code = HCT) 39.0 % 42.0-52.0 L MEAN CELL VOLUME (test code = MCV) 89.9 fL 80-98 N MEAN CELL HGB (test code = MCH) 28.3 picogram 27.0-33.0 N MEAN CELL HGB CONCETRATION (test code = MCHC) 31.5 gram/dL 33.0-36. 0 L RED CELL DISTRIBUTION WIDTH (test code = RDW) 13.7 % 11.6-16. 2 N RED CELL DISTRIBUTION WIDTH SD (test code = RDW-SD) 44.7 fL 37 .0-51.0 N PLATELET COUNT (test code = PLT) 280 K/mm3 150-450 N MEAN PLATELET VOLUME (test code = MPV) 10.6 fL 6.7-11.0 N NEUTROPHIL % (test code = NT%) 73.2 % 39.0-69.0 H IMMATURE GRANULOCYTE % (test code = IG%) 1.2 % 0.0-5.0 N LYMPHOCYTE % (test code = LY%) 14.7 % 25.0-55.0 L MONOCYTE % (test code = MO%) 8.1 % 0.0-10.0 N EOSINOPHIL % (test code = EO%) 2.0 % 0.0-5.0 N BASOPHIL % (test code = BA%) 0.8 % 0.0-1.0 N NUCLEATED RBC % (test code = NRBC%) 0.0 % 0-0 N NEUTROPHIL # (test code = NT#) 7.38 K/mm3 1.8-7.7 N IMMATURE GRANULOCYTE # (test code = IG#) 0.12 x10 3/uL 0-0.03 H LYMPHOCYTE # (test code = LY#) 1.48 K/mm3 1.0-5.0 N MONOCYTE # (test code = MO#) 0.82 K/mm3 0-0.8 H EOSINOPHIL # (test code = EO#) 0.20 K/mm3 0.0-0.5 N BASOPHIL # (test code = BA#) 0.08 K/mm3 0.0-0.2 N NUCLEATED RBC # (test code = NRBC#) 0.00 K/mm3 0.0-0.1 N Stool Occult Kozlg2393-04-49 16:40:00* Test Item Value Reference Range Interpretation Comments Stool Occult Blood (test code = 2335-8) POSITIVE NEGATIVE H [facility] PasoBedside Brzkttf6352-61-16 16:31:00* Test Item Value Reference Range Interpretation Comments Bedside Glucose (test code = 82890-7) 106 70-120 Meter ID: [id number] Surgical Hospital of El PasoCreatine Kinase MB 2018-12-31 13:57:00* Test Item Value Reference Range Interpretation Comments Creatine Kinase MB (test code = 64655-3) 2.00 0-5.0 [facility] PasoTroponin [id number] 13:57:00* Test Item Value Reference Range Interpretation Comments Troponin I (test code = UPR0286) 0.033 0-0.[address] [facility] Hospitalodium Fzbcs1936-00-99 13:53:00* Test Item Value Reference Range Interpretation Comments Sodium Level (test code = 2951-2) 132 136-145 L [facility] PasoPotassium Gjoni8709-35-79 13:53:00* Test Item Value Reference Range Interpretation Comments Potassium Level (test code = 2823-3) 6.4 3.5-5.1 HH Results repeated and called to heidi bowman at 1352 on 12/31/18 by Foreign kellogg Read back and verified.NO HEMOLYSISFoundation [facility] Paso Chloride Dqulx9327-25-85 13:53:00* Test Item Value Reference Range Interpretation Comments Chloride Level (test code = 2075-0) 94 98-107 L [facility] PasoCarbon Dioxide Uwebc6679-42-00 13:53:00* Test Item Value Reference Range Interpretation Comments Carbon Dioxide Level (test code = 2028-9) 27 22-29 [facility] PasoAnion Ebp7989-35-12 13:53:00* Test Item Value Reference Range Interpretation Comments Anion Gap (test code = 24000-3) 17.4 8-16 H [facility] PasoBlood Urea Qxipwoln2405-08-58 13:53:00* Test Item Value Reference Range Interpretation Comments Blood Urea Nitrogen (test code = 3094-0) 44 7-26 H [facility] PasoCreatinine2019-04-09 13:53:00* Test Item Value Reference Range Interpretation Comments Creatinine (test code = 2160-0) 10.85 0.72-1.25 H [facility] PasoBUN/Creatinine Uifmc7867-93-56 13:53:00* Test Item Value Reference Range Interpretation Comments BUN/Creatinine Ratio (test code = 3097-3) 4 6-25 L [facility] PasoEstimat Glomerular Filtration Rate 2018-12-31 13:53:00* Test Item Value Reference Range Interpretation Comments Estimat Glomerular Filtration Rate (test code = 440644809) 5 >60 L Ranges were taken from the National Kidney Disease Education Program and the [facility] Kidney Foundation literature.Reference ranges:60 or greater: Dbtkux87-89 ( for 3 consecutive months): Chronic kidney disease 15 or less: Kidney failureCHI St. Lukes - Patients Medical CenterGlucose Qykeb0547-29-54 13:53:00* Test Item Value Reference Range Interpretation Comments Glucose Level (test code = EDL2970) 171 74-118 H [facility] PasoCalcium Mixqp0819-50-05 13:53:00* Test Item Value Reference Range Interpretation Comments Calcium Level (test code = 66673-3) 9.6 8.4-10.2 [facility] PasoTotal Sbbynaelp0724-51-86 13:53:00* Test Item Value Reference Range Interpretation Comments Total Bilirubin (test code = 1975-2) 0.7 0.2-1.2 [facility] PasoAspartate Amino Transf (AST/SGOT) 2018-12-31 13:53:00* Test Item Value Reference Range Interpretation Comments Aspartate Amino Transf (AST/SGOT) (test code = Aspartate Amino Transf (AST/SGOT)) 16 5-34 [facility] PasoAlanine Aminotransferase (ALT/SGPT) 2018-12-31 13:53:00* Test Item Value Reference Range Interpretation Comments Alanine Aminotransferase (ALT/SGPT) (test code = 1742-6) 28 0-55 [facility] PasoTotal Tshynjl9049-96-09 13:53:00* Test Item Value Reference Range Interpretation Comments Total Protein (test code = 2885-2) 9.1 6.5-8.1 H [facility] PasoAlbumin2019-04-09 13:53:00* Test Item Value Reference Range Interpretation Comments Albumin (test code = 1751-7) 3.9 3.5-5.0 [facility] PasoGlobulin2019-04-09 13:53:00* Test Item Value Reference Range Interpretation Comments Globulin (test code = 19504-4) 5.2 2.3-3.5 H [facility] PasoAlbumin/Globulin Saxvu8279-40-68 13:53:00 * Test Item Value Reference Range Interpretation Comments Albumin/Globulin Ratio (test code = 1759-0) 0.8 0.8-2.0 [facility] PasoAlkaline Nepzxdttsdv1560-75-54 13:53:00* Test Item Value Reference Range Interpretation Comments Alkaline Phosphatase (test code = 6768-6) 130 40-150 [facility] PasoCreatine Knslil1203-23-03 13:53:00* Test Item Value Reference Range Interpretation Comments Creatine Kinase (test code = 2157-6) 157 30-200 [facility] PasoLactic Acid Tpdwa3061-81-13 13:42:00* Test Item Value Reference Range Interpretation Comments Lactic Acid Level (test code = Lactic Acid Level) 13.2 4.5- 19.8 [facility] PasoWhite Blood Nuktj7790-61-74 13:26:00* Test Item Value Reference Range Interpretation Comments White Blood Count (test code = 6690-2) 12.87 4.8-10.8 H [facility] PasoRed Blood Bclnk0752-55-54 13:26:00* Test Item Value Reference Range Interpretation Comments Red Blood Count (test code = 789-8) 4.55 4.3-5.7 [facility] PasoHemoglobin2019-04-09 13:26:00* Test Item Value Reference Range Interpretation Comments Hemoglobin (test code = 13882-0) 13.1 14.0-18.0 L [facility] PasoHematocrit2019-04-09 13:26:00* Test Item Value Reference Range Interpretation Comments Hematocrit (test code = 4544-3) 41.0 38.2-49.6 [facility] PasoMean Corpuscular Jfalfu4089-44-69 13:26:00* Test Item Value Reference Range Interpretation Comments Mean Corpuscular Volume (test code = 787-2) 90.1 81-99 [facility] PasoMean Corpuscular Ofpnbgaqfe7211-82-46 13:26:00* Test Item Value Reference Range Interpretation Comments Mean Corpuscular Hemoglobin (test code = 785-6) 28.8 28-32 [facility] PasoMean Corpuscular Hemoglobin Concent 2018-12-31 13:26:00* Test Item Value Reference Range Interpretation Comments Mean Corpuscular Hemoglobin Concent (test code = 786-4) 32.0 31-35 [facility] PasoRed Cell Distribution Xrkjz7111-68-58 13:26:00* Test Item Value Reference Range Interpretation Comments Red Cell Distribution Width (test code = 29140-1) 14.3 11.7 -14.4 [facility] PasoPlatelet Rnwvi7660-63-27 13:26:00* Test Item Value Reference Range Interpretation Comments Platelet Count (test code = 777-3) 306 140-360 [facility] PasoNeutrophils (%) (Auto)2018-12-31 13:26:00 * Test Item Value Reference Range Interpretation Comments Neutrophils (%) (Auto) (test code = 47079-1) 74.7 38.7-80.0 [facility] PasoLymphocytes (%) (Auto)2018-12-31 13:26:00 * Test Item Value Reference Range Interpretation Comments Lymphocytes (%) (Auto) (test code = 736-9) 12.6 18.0-39.1 L [facility] PasoMonocytes (%) (Auto)2018-12-31 13:26:00* Test Item Value Reference Range Interpretation Comments Monocytes (%) (Auto) (test code = 5905-5) 8.2 4.4-11.3 [facility] PasoEosinophils (%) (Auto)2018-12-31 13:26:00 * Test Item Value Reference Range Interpretation Comments Eosinophils (%) (Auto) (test code = 713-8) 1.6 0.0-6.0 [facility] PasoBasophils (%) (Auto)2018-12-31 13:26:00* Test Item Value Reference Range Interpretation Comments Basophils (%) (Auto) (test code = 706-2) 1.1 0.0-1.0 H [facility] PasoIM GRANULOCYTES %2018-12-31 13:26:00* Test Item Value Reference Range Interpretation Comments IM GRANULOCYTES % (test code = IM GRANULOCYTES %) 1.8 0.0- 1.0 H [facility] PasoNeutrophils # (Auto)2018-12-31 13:26:00* Test Item Value Reference Range Interpretation Comments Neutrophils # (Auto) (test code = 751-8) 9.6 2.1-6.9 H [facility] PasoLymphocytes # (Auto)2018-12-31 13:26:00* Test Item Value Reference Range Interpretation Comments Lymphocytes # (Auto) (test code = 51678-7) 1.6 1.0-3.2 [facility] PasoMonocytes # (Auto)2018-12-31 13:26:00* Test Item Value Reference Range Interpretation Comments Monocytes # (Auto) (test code = 742-7) 1.1 0.2-0.8 H [facility] PasoEosinophils # (Auto)2018-12-31 13:26:00* Test Item Value Reference Range Interpretation Comments Eosinophils # (Auto) (test code = 711-2) 0.2 0.0-0.4 [facility] PasoBasophils # (Auto)2018-12-31 13:26:00* Test Item Value Reference Range Interpretation Comments Basophils # (Auto) (test code = 704-7) 0.1 0.0-0.1 [facility] PasoAbsolute Immature Granulocyte (auto 2018-12-31 13:26:00* Test Item Value Reference Range Interpretation Comments Absolute Immature Granulocyte (auto (osman t code = Absolute Immature Granulocyte (auto) 0.23 0-0.1 H [facility] PasoGLUBED2019-02-05 07:50:00* Test Item Value Reference Range Interpretation Comments GLUBED (test code = GLUBED) 157 mg/dL 74-106 H Performed by certified cut to length operator at [facility] BCKNYK6932-55-62 07:50:00* Test Item Value Reference Range Interpretation Comments GLUBED (test code = GLUBED) 126 mg/dL 74-106 H Performed by certified cut to length operator at [facility] NJIGMI2199-58-32 07:50:00* Test Item Value Reference Range Interpretation Comments GLUBED (test code = GLUBED) 128 mg/dL 74-106 H Performed by certified cut to length operator at [facility] GASTRIC,SFIBMM8900-87-84 16:41:00 RUN DATE: 09/19/18 [facility] PAGE 1 RUN TIME: 1641 Specimen Inqui ry RUN USER: INTERFACE PATIENT: ELIDIA ZAMORA JR ACCT #: [id number] LOC: EFRAÍN U #: [id number] AGE/SX: 53/M ROOM: RE09/12/18[facility] DR: Dano Pelayo : 67 BED: DIS: STATUS: [facility] TLOC: SPEC #: [id number] RECD: 09/13/18 STATUS: FLY REQ #: [id number] SAKSIH: 09/12/18 [facility] [address]: Dano Pelayo MD ENTERED: 09/13/18 SP TYPE: GASTRIC BX OTHR DR: Jyotsna Marte MD ORDERED: GROSS COPIES TO: Dano Pelayo MD [address], [address] [place] [address] Jyotsna Marte MD [address] [place], [place] [id number] MARKERS: INTRADEPARTME NTAL CONSULT PROCEDURES: GROSS (09/19/18-1507) TISSUES: 1. ANTRUM - NO DULES BX 2. ESOPHAGUS, NOS - BX 3. DESCENDING COLON - POLYP HS 4. SIGMOID - POLYP HS CLINICAL HISTORY COLLECTION DATE: 09/12 ABDOMINAL PAIN, HEARTBURN, NAUSEA, SCREENING GASTRITIS, HIATAL HERNIA, GASTRIC NODULES, COLON POLYPS, DIVERTICULOSIS, INTERNAL HEMORRHOIDS COMMENT Sections of the first section show gastric mucosa with no s ignificant acute or chronic inflammatory infiltrate. An area of intestinal met aplasia with low-grade intraepithelial neoplsia/dysplasia is present. Features diagnostic of high grade dysplasia and malignancy are not identified. Mu ltiple sections through the fourth specimen show a pedunculated tubulovillous ad enoma with a very focal area of high-grade dysplasia arising in the head of the polyp. No invasive malignancy is present. No dysplasia or malignancy is pres ent at the surgical margin of the polyp. The lesion appears to be excised. Co rrelation is necessary. CONTINUED ON NEXT P AGE RUN DATE: 09/19/18 [facility] PAGE 2 RUN TIME: 1641 Specimen Inquiry RUN USER: INTERFACE SPEC #: [id number] PATIENT: ELIDIA ZAMORA #[id number] (Continued) COMM ENT (Continued) Intradepartmental consultation: [facility] DIAGNOSIS Gastric antral nodule, biopsy: GASTRIC MUCOSA WITH AREAS OF LOW GRADE INTRAEPITHELIAL NEOPLASIA/DYSPLASIA NO SIGNIFICANT ACUTE OR CHRONIC INFLAMMATION NEGATIVE FOR HELICOBACTER ORGANISMS NEGATIVE FOR MALIGNANCY CLINICAL CORRELATION REQUIRED Esophagus, biopsy: SQUAMOUS MUCOSA WITH ELONGATION OF SQUAMOUS PAPILLAE, INCREASED INT RAEPITHELIAL LYMPHOCYTES AND BASAL CELL HYPERPLASIA GASTRIC-TYPE GLANDULA R MUCOSA WITH MILD-MODERATE CHRONIC INFLAMMATION AND MILD REACTIVE EPIT HELIAL CHANGE NO INCREASED NUMBER OF INTRAEPITHELIAL EOSINOPHILS NO GOBLET CELL METAPLASIA PRESENT NEGATIVE FOR HIGH GRADE DYSPLASIA AND M ALIGNANCY REFLUX ESOPHAGITIS Descending colon polyp, hot snare biopsy: TUBULAR ADENOMA(S) NEGATIVE FOR HIGH GRADE DYSPLASIA AND M ALIGNANCY Sigmoid colon polyp, hot snare biopsy: VERY FOCAL HIGH-GR NAVI DYSPLASIA ARISING WITHIN TUBULOVILLOUS ADENOMA, see comment SURGICAL MARGIN OF RESECTION (BASE OF STALK), NEGATIVE FOR DYSPLASIA AND MALIGNANCY RRB/gm D [phone] MACROSCOPIC The first specimen is received in formalin, labeled with the patient's name, iden tified as "Antrum nodule BX", and consists of baez/light-pink biopsy tissue clarissa suring up to 0.3 cm in aggregate, submitted as (1) for H E and Giemsa stains. The second specimen is received in formalin, labeled with the patient's na me, identified as "Esophagus BX", and consists of baez/light-pineda biopsy tissue measuring up to 0.25 cm in aggregate, submitted as (2). The third speci men is received in formalin, labeled with the patient's name, identified as "D escending polyp", and consists of baez-pink biopsy tissue CONTINUED ON NEXT PAGE RUN DATE: 09/19/18 [facility] PAGE 3 RUN TIME: 1641 Specimen Inquiry RUN USER: INTERFACE SPEC #: [id number]: [id number] PATIENT: ELIDIA ZAMORA #[id number] (Continued ) MACROSCOPIC (Continued) measuring up to 0 .25 cm in aggregate, submitted as (3). The fourth specimen is received in formalin, labeled with the patient's name, identified as "Sigmoid polyp H/S", and consists of two nodular portions of dark baez/pink tissue. The smaller is dome-shaped, measuring 0.7 x 0.7 x 0.3 cm. The larger is polypoid with a short stalk measuring 1.5 mm in length. The head of the polyp measures 1.5 x 1.5 x 1.1 cm. Ink code: Green, base of smaller sessile polyp; Blue, base of l arger pedunculated polyp. Section code: 4A, smaller polyp sectioned; 4 B, base of polyp en face and litigation claim representative cross sections; 4C, remainder of pedunculated polyp, mildly fragmented. GROSS PERFORMED AT [facility] [address] [place] [address] (p) [phone] MICROSCOPIC MICROSCOPIC PERFORMED AT [facility] All of the stains, including any controls performed, stain appropriately . [facility] [address] [place] [address] (J) PERFORMING SITE Processed at: [facility] RAUL [address] [place] [address] [phone] Signed SIGNATURE ON FILE Halima Oates 09/19/18 1641 END OF REPORT Bedside Uzvaijw8309-21-40 01:29:00* Test Item Value Reference Range Interpretation Comments Bedside Glucose (test code = 96618-5) 172 70-120 H Meter ID: [id number] St. [facility] Hospitalodium Level 2017-12-20 20:53:00* Test Item Value Reference Range Interpretation Comments Sodium Level (test code = 2951-2) 130 136-145 L [facility] PasoPotassium Gpiyi1470-10-54 20:53:00* Test Item Value Reference Range Interpretation Comments Potassium Level (test code = 2823-3) 5.5 3.5-5.1 H NO HEMOLYSIS [facility] PasoChloride Hwfle5218-70-81 20:53:00* Test Item Value Reference Range Interpretation Comments Chloride Level (test code = 2075-0) 88 98-107 L [facility] PasoCarbon Dioxide Qzqhy7508-15-53 20:53:00* Test Item Value Reference Range Interpretation Comments Carbon Dioxide Level (test code = 2028-9) 31 22-29 H [facility] PasoAnion Dou1329-57-99 20:53:00* Test Item Value Reference Range Interpretation Comments Anion Gap (test code = 17176-3) 16.5 8-16 H [facility] PasoBlood Urea Ksumzndx2951-16-91 20:53:00* Test Item Value Reference Range Interpretation Comments Blood Urea Nitrogen (test code = 3094-0) 49 7-26 H [facility] PasoCreatinine2018-03-29 20:53:00* Test Item Value Reference Range Interpretation Comments Creatinine (test code = 2160-0) 8.33 0.72-1.25 H [facility] PasoBUN/Creatinine Dpudw3750-01-92 20:53:00* Test Item Value Reference Range Interpretation Comments BUN/Creatinine Ratio (test code = 3097-3) 6 - [facility] PasoEstimat Glomerular Filtration Rate 2017-12-20 20:53:00* Test Item Value Reference Range Interpretation Comments Estimat Glomerular Filtration Rate (test code = 27907-8) 7 >60 L Ranges were taken from the National Kidney Disease Education Program and the [facility] Kid[facility] Foundation literature.Reference ranges:60 or greater: Bcnfcx98-29 ( for 3 consecutive months): Chronic kidney disease 15 or less: Kidney failureFoundation Surgical Hospital of El PasoGlucose Xxtks0276-62-53 20:53:00* Test Item Value Reference Range Interpretation Comments Glucose Level (test code = NAV4260) 628 74-118 Results called to CADENCE MARIE at 2050 on 12/20/17 by OSCAR PALOMO. RB [place].[facility] PasoCalcium Rasce0771-63-25 20:53:00* Test Item Value Reference Range Interpretation Comments Calcium Level (test code = 57806-8) 9.4 8.4-10.2 [facility] PasoTotal Ttjnctnaj8311-85-24 20:53:00* Test Item Value Reference Range Interpretation Comments Total Bilirubin (test code = 1975-2) 0.3 0.2-1.2 [facility] PasoAspartate Amino Transf (AST/SGOT) 2017-12-20 20:53:00* Test Item Value Reference Range Interpretation Comments Aspartate Amino Transf (AST/SGOT) (test code = Aspartate Amino Transf (AST/SGOT)) 13 5-34 [facility] PasoAlanine Aminotransferase (ALT/SGPT) 2017-12-20 20:53:00* Test Item Value Reference Range Interpretation Comments Alanine Aminotransferase (ALT/SGPT) (test code = 1742-6) 14 0-55 [facility] PasoTotal Rljpoye9557-32-31 20:53:00* Test Item Value Reference Range Interpretation Comments Total Protein (test code = 2885-2) 7.6 6.5-8.1 [facility] PasoAlbumin2018-03-29 20:53:00* Test Item Value Reference Range Interpretation Comments Albumin (test code = 1751-7) 3.0 3.5-5.0 L [facility] PasoGlobulin2018-03-29 20:53:00* Test Item Value Reference Range Interpretation Comments Globulin (test code = 89931-8) 4.6 2.3-3.5 H [facility] PasoAlbumin/Globulin Bkndk9801-20-95 20:53:00 * Test Item Value Reference Range Interpretation Comments Albumin/Globulin Ratio (test code = 1759-0) 0.7 0.8-2.0 L [facility] PasoAlkaline Xhtmtqdcunj5576-47-24 20:53:00* Test Item Value Reference Range Interpretation Comments Alkaline Phosphatase (test code = 6768-6) 211 40-150 H [facility] PasoUrine EMB5557-40-83 20:49:00* Test Item Value Reference Range Interpretation Comments Urine WBC (test code = 5821-4) 6-10 0-5 H [facility] PasoUrine TYH4087-30-92 20:49:00* Test Item Value Reference Range Interpretation Comments Urine RBC (test code = 99090-4) NONE 0-5 [facility] PasoUrine Nhabfwwc0213-00-52 20:49:00* Test Item Value Reference Range Interpretation Comments Urine Bacteria (test code = 99625-2) MODERATE NONE H [facility] PasoUrine Epithelial Mxnqj4673-54-58 20:49:00 * Test Item Value Reference Range Interpretation Comments Urine Epithelial Cells (test code = 52348-6) FEW NONE [facility] PasoWhite Blood Pveub8004-37-18 20:36:00* Test Item Value Reference Range Interpretation Comments White Blood Count (test code = 6690-2) 8.08 4.8-10.8 [facility] PasoRed Blood Ystoo0894-94-36 20:36:00* Test Item Value Reference Range Interpretation Comments Red Blood Count (test code = 789-8) 4.37 4.3-5.7 [facility] [facility]* Test Item Value Reference Range Interpretation Comments Hemoglobin (test code = 55641-9) 12.7 14.0-18.0 L [facility]ematocrit2018-03-29 20:36:00* Test Item Value Reference Range Interpretation Comments Hematocrit (test code = 4544-3) 36.6 38.2-49.6 L [facility] PasoMean Corpuscular Tbxezk9813-10-89 20:36:00* Test Item Value Reference Range Interpretation Comments Mean Corpuscular Volume (test code = 787-2) 83.8 81-99 [facility]Mean Corpuscular Zovufhzjmd0253-42-31 20:36:00* Test Item Value Reference Range Interpretation Comments Mean Corpuscular Hemoglobin (test code = 785-6) 29.1 28-32 [facility] Corpuscular Hemoglobin Concent 2017-12-20 20:36:00* Test Item Value Reference Range Interpretation Comments Mean Corpuscular Hemoglobin Concent (test code = 786-4) 34.7 31-35 [facility] PasoRed Cell Distribution Xfcni1838-54-83 20:36:00* Test Item Value Reference Range Interpretation Comments Red Cell Distribution Width (test code = 61910-2) 12.7 11.7 -14.4 [facility]Platelet Zxtuk4105-46-42 20:36:00* Test Item Value Reference Range Interpretation Comments Platelet Count (test code = 777-3) 239 140-360 [facility] PasoNeutrophils (%) (Auto)2017-12-20 20:36:00 * Test Item Value Reference Range Interpretation Comments Neutrophils (%) (Auto) (test code = 91281-7) 65.4 38.7-80.0 [facility]oLymphocytes (%) (Auto)2017-12-20 20:36:00 * Test Item Value Reference Range Interpretation Comments Lymphocytes (%) (Auto) (test code = 736-9) 22.0 18.0-39.1 [facility]Monocytes (%) (Auto)2017-12-20 20:36:00* Test Item Value Reference Range Interpretation Comments Monocytes (%) (Auto) (test code = 5905-5) 7.2 4.4-11.3 [facility]Eosinophils (%) (Auto)2017-12-20 20:36:00 * Test Item Value Reference Range Interpretation Comments Eosinophils (%) (Auto) (test code = 713-8) 3.3 0.0-6.0 [facility]Basophils (%) (Auto)2017-12-20 20:36:00* Test Item Value Reference Range Interpretation Comments Basophils (%) (Auto) (test code = 706-2) 1.0 0.0-1.0 [facility] PasoIM GRANULOCYTES %2017-12-20 20:36:00* Test Item Value Reference Range Interpretation Comments IM GRANULOCYTES % (test code = IM GRANULOCYTES %) 1.1 0.0- 1.0 H [facility] PasoNeutrophils # (Auto)2017-12-20 20:36:00* Test Item Value Reference Range Interpretation Comments Neutrophils # (Auto) (test code = 751-8) 5.3 2.1-6.9 [facility] PasoLymphocytes # (Auto)2017-12-20 20:36:00* Test Item Value Reference Range Interpretation Comments Lymphocytes # (Auto) (test code = 43014-3) 1.8 1.0-3.2 [facility]Monocytes # (Auto)2017-12-20 20:36:00* Test Item Value Reference Range Interpretation Comments Monocytes # (Auto) (test code = 742-7) 0.6 0.2-0.8 [facility]Eosinophils # (Auto)2017-12-20 20:36:00* Test Item Value Reference Range Interpretation Comments Eosinophils # (Auto) (test code = 711-2) 0.3 0.0-0.4 [facility]Basophils # (Auto)2017-12-20 20:36:00* Test Item Value Reference Range Interpretation Comments Basophils # (Auto) (test code = 704-7) 0.1 0.0-0.1 [facility] PasoAbsolute Immature Granulocyte (auto 2017-12-20 20:36:00* Test Item Value Reference Range Interpretation Comments Absolute Immature Granulocyte (auto (osman t code = Absolute Immature Granulocyte (auto) 0.09 0-0.1 [facility] PasoUrine Trgvo9089-74-16 20:36:00* Test Item Value Reference Range Interpretation Comments Urine Color (test code = 5778-6) YELLOW YELLOW [facility] PasoUrine Htfcjat0667-18-02 20:36:00* Test Item Value Reference Range Interpretation Comments Urine Clarity (test code = 79669-2) CLEAR CLEAR [facility] PasoUrine Specific Lwybiud7993-92-01 20:36:00 * Test Item Value Reference Range Interpretation Comments Urine Specific [place] (test code = 5811-5) 1.015 1.010-1.02 5 [facility] PasoUrine [id number] 20:36:00* Test Item Value Reference Range Interpretation Comments Urine pH (test code = 07755-2) 8 5-7 H [facility] PasoUrine Leukocyte Nwqfkyyj8112-65-67 20:36:00* Test Item Value Reference Range Interpretation Comments Urine Leukocyte Esterase (test code = 5799-2) NEGATIVE NEGATIVE [facility] PasoUrine Rivjyhx6811-58-46 20:36:00* Test Item Value Reference Range Interpretation Comments Urine Nitrite (test code = 92768-5) NEGATIVE NEGATIVE [facility] PasoUrine Opypvyd8343-63-24 20:36:00* Test Item Value Reference Range Interpretation Comments Urine Protein (test code = 5804-0) 3+ NEGATIVE H [facility] PasoUrine Glucose (UA)2017-12-20 20:36:00* Test Item Value Reference Range Interpretation Comments Urine Glucose (UA) (test code = 2349-9) 3+ NEGATIVE H [facility] PasoUrine Ikwuwgl5613-02-22 20:36:00* Test Item Value Reference Range Interpretation Comments Urine Ketones (test code = 31830-0) NEGATIVE NEGATIVE [facility] PasoUrine Fohlgzxjgdfq0249-08-66 20:36:00* Test Item Value Reference Range Interpretation Comments Urine Urobilinogen (test code = 66284-3) 0.2 0.2-1 [facility] PasoUrine Tacctedqc4236-53-60 20:36:00* Test Item Value Reference Range Interpretation Comments Urine Bilirubin (test code = 1978-6) NEGATIVE NEGATIVE [facility] PasoUrine Zqacb4832-60-80 20:36:00* Test Item Value Reference Range Interpretation Comments Urine Blood (test code = 47479-5) 1+ NEGATIVE H [facility] PasoCreatine Lxaoqn6464-64-94 10:10:00* Test Item Value Reference Range Interpretation Comments Creatine Kinase (test code = 2157-6) 179 30-200 [facility] PasoCreatine Kinase [id number] 10:10:00* Test Item Value Reference Range Interpretation Comments Creatine Kinase MB (test code = 53904-8) 2.00 0.00-5.00 [facility] PasoTroponin Z4939-06-54 10:10:00* Test Item Value Reference Range Interpretation Comments Troponin I (test code = QKH5497) 0.041 0-0.300 [facility] PasoTriglycerides Jbloq3426-78-62 08:05:00* Test Item Value Reference Range Interpretation Comments Triglycerides Level (test code = 2571-8) 317 0-149 H [facility] PasoCholesterol Rzjtx3169-54-75 08:05:00* Test Item Value Reference Range Interpretation Comments Cholesterol Level (test code = 2093-3) 190 0-199 Less than 200 mg/dL Low Hhps334 - 239 mg/dL Borderline Csdd590 m g/dl and greater High Risk [facility] PasoLDL Gxuazvwnzmt1519-08-33 08:05:00* Test Item Value Reference Range Interpretation Comments LDL Cholesterol (test code = 20369-5) 104 60-130 [facility] PasoHDL Ekxitttoxco5803-79-73 08:05:00* Test Item Value Reference Range Interpretation Comments HDL Cholesterol (test code = 2085-9) 23 40-60 L [facility] PasoCholesterol/HDL Qdqeg7858-04-15 08:05:00 * Test Item Value Reference Range Interpretation Comments Cholesterol/HDL Ratio (test code = 9830-1) 8.3 3.9-4.7 H [facility] PasoB-Type Natriuretic Hwfvjfl1851-62-76 20:01:00* Test Item Value Reference Range Interpretation Comments B-Type Natriuretic Peptide (test code = 57984-9) 149.6 0-100 H [facility] PasoProthrombin Nkhl2960-05-52 19:29:00* Test Item Value Reference Range Interpretation Comments Prothrombin Time (test code = 5902-2) 14.2 11.9-14.5 [facility] PasoProthromb Time International Ratio 2017-07-07 19:29:00* Test Item Value Reference Range Interpretation Comments Prothromb Time International Ratio (test code = 6301-6) 1.05 Oral Anticoagulant Therapy INR Values:1. Low Intensity Therapy 1.5 - 2.02 . Moderate Intensity Therapy 2.0 - 3.03. High Intensity Therapy(1) 2.5 - 3. 54. High Intensity Therapy(2) 3.0 - 4.05. Panic Value INR > 5.0 [facility] PasoActivated Partial Thromboplast Time 2017-07-07 19:29:00* Test Item Value Reference Range Interpretation Comments Activated Partial Thromboplast Time (test code = 83984-2) 30.3 23.8-35.5 [facility] [place] [address] Patient Name: ELIDIA ZAMORA MR #: [id number] : 1965 Age/Sex: 51/M Req #: [id number] Adm Physician: Ordered by: AGUILA RECIO MD Report #: [id number] Location: ER Room/Bed: Procedure: [id number] DX/CHEST SINGLE (PORTABLE) Exam Date: 07/07/17 Exam Time: 1899 REPORT STATUS: Signed CHEST SINGLE (PORTABLE), 07/07/2017 6:58 PM Technique: CHEST SING LE (PORTABLE) Comparison: None available. Clinical history: Chest pain Findings: See Impression. Impression: 1. Unremarkable cardiomediast inal silhouette for technique. 2. Mild elevation of the right hemidiaphragm wi th right basilar opacity, which could be due to atelectasis or infection. Ash mmend upright PA and lateral. 3. No effusion or pneumothorax. Signed by: Dr Olayinka Mckeon MD on 07/07/2017 7:41 PM Dictated By: OLAYINKA Romano 40 Transcribed By : STEPHEN on 07/07/171940 COPY TO: AGUILA RECIO MD
--- OUTSIDE RECORDS SUMMARY | 2020-04-23 19:04 | XMS REPORT | Clinical Summary ---
Author Author [facility] Organization [facility] Address Unknown Phone Unavailable Care Team Providers Care Parking Garage Manager Name Role Phone PCP Unavailable Allergies Comments Active Allergy Reactions Severity Noted Date Silk Tape Only. Adhesive Tape Rash Medium 10/02/2018 Medications End Date Status Medication Sig Dispensed Refills Start Date Active aspirin 81 MG EC tablet Take 81 mg by 0 mouth daily. Active metoprolol (LOPRESSOR) 25 Take 25 mg by 0 MG tablet mouth daily. Active sevelamer (RENVELA) 800 Take 2,400 mg 0 mg tablet by mouth 3 (three) times daily with meals. Active sucroferric oxyhydroxide Take 500 mg 0 (VELPHORO) 500 mg Chew by mouth 3 (three) times daily. Active clopidogrel (PLAVIX) 75 Take 75 mg by 0 mg tablet mouth daily. Active dexlansoprazole 60 mg Take 60 mg by 0 capsule mouth daily. Active Problems Problem Noted Date ESRD (end stage renal disease) on dialysis Last Assessment & Plan: End stage renal disease secondary to DM . He has required dialysis since April 2017. He still produces urine. H e does not have potential donors. Hypertension 02/25/2019 Last Assessment & Plan: Blood pressure management per nephrolog y. Diabetes mellitus 02/25/2019 Overview: Type 2 L ast Assessment & Plan: Diabetes type 2. He will continue follo w up with primary care for blood glucose management. Pre-transplant evaluation for chronic kidney disease 02/25/2019 Last Assessment & Plan: He is an acceptable candidate for kidne y transplant pending a cardiac cath due to age and diabetes. Obesity 02/25/2019 Last Assessment & Plan: Current BMI is 36. Though his body habi tus appears smaller. He was encouraged to monitor his oral intake a nd to exercise as tolerated. Encounters Care Team Description Date Type Specialty Gisela Jimenez 12/31/2019 Documentation Transplant Joseline Cruz Roverto 12/30/2019 Documentation Transplant Amee Duyen Ksenia Follow-up 12/26/2019 Telephone Transplant Alka Novak, OMAR Follow-up 05/20/2019 Telephone Transplant Ester Tiwari RN Follow-up 05/08/2019 Telephone Transplant Wilton Singh II, MD ESRD (end stage renal disease) ([facility]); Pre-transplant evaluation for end stage renal disease; Maturity onset diabetes mellitus in young ([facility]); Essential hypertension, malignant; Anemia of chronic renal failure, unspecified CKD stage; Abnormal blood chemistry; Pre-operative cardiovascular examination; Pure hypercholesterolemia; Atherosclerosis of upper sioux coronary artery of upper sioux heart without angina pectoris; Impending cerebrovascular accident ([facility]) 05/06/2019 Hospital Encounter Wilton Singh II, MD ESRD (end stage renal disease) (FORM[facility]LY [facility]); Pre-transplant evaluation for end stage renal disease; Maturity onset diabetes mellitus in young ([facility]); Essential hypertension, malignant; Anemia of chronic renal failure, unspecified CKD stage; Abnormal blood chemistry; Pre-operative cardiovascular examination; Pure hypercholesterolemia; Atherosclerosis of upper si[place] coronary artery of upper sioux heart without angina pectoris; Impending cerebrovascular accident ([facility]) 05/06/2019 Hospital Radiology Encounter Wilton Singh II, MD ESRD (end stage renal disease) ([facility]LY [facility]); Pre-transplant evaluation for end stage renal disease; Maturity onset diabetes mellitus in young ([facility]); Essential hypertension, malignant; Anemia of chronic renal failure, unspecified CKD stage; Abnormal blood chemistry; Pre-operative cardiovascular examination; Pure hypercholesterolemia; Atherosclerosis of upper [place] coronary artery of upper si[place] heart without angina pectoris; Impending cerebrovascular accident ([facility]); Pre-transplant evaluation for chronic kidney disease 05/06/2019 Hospital Cardiology Encounter Wilton Singh II, MD ESRD (end stage renal disease) ([facility]); Pre-transplant evaluation for end stage renal disease; Maturity onset diabetes mellitus in young ([facility]); Essential hypertension, malignant; Anemia of chronic renal failure, unspecified CKD stage; Abnormal blood chemistry; Pre-operative cardiovascular examination; Pure hypercholesterolemia; Atherosclerosis of upper si[place] coronary artery of upper si[place] heart without angina pectoris; Impending cerebrovascular accident (HCC) 05/06/2019 Hospital Cardiology Encounter Wilton Singh II, MD ESRD (end stage renal disease) ([facility]); Pre-transplant evaluation for end stage renal disease; Maturity onset diabetes mellitus in young (HCC); Essential hypertension, malignant; Anemia of chronic renal failure, unspecified CKD stage; Abnormal blood chemistry; Pre-operative cardiovascular examination; Pure hypercholesterolemia; Atherosclerosis of upper [place] coronary artery of upper si[place] heart without angina pectoris; Impending cerebrovascular accident (HCC) 05/06/2019 Orders Only Lab Wilton Singh II, MD 05/06/2019 Outside Orders after 04/19/2019 Family History Medical History Relation Name Comments Blindness Brother Diabetes Brother Kidney failure Brother on dialysis Peripheral vascular Brother disease Diabetes Brother Diabetes Brother Diabetes Father Kidney failure Father on dialysis prior t o Diabetes Mother Peripheral vascular Mother disease Colon cancer Neg Hx Heart disease Neg Hx Relation Name Status Comments Brother Brother Brother Father Mother Social History Date Tobacco Use Types Packs/Day Years Used Never Smoker Alcohol Use Drinks/Week oz/Week Comments No Alcohol Habits Answer Date Recorded How often do you have a drink containing alcohol? Never 02/25/2019 How many drinks containing alcohol do you have on No t asked a typical day when you are drinking? How often do you have six or more drinks on one Not asked occasion? Sex Assigned at Date Recorded Not on file Industry Job Start Date Occupation Not on file Not on file Not on file Travel End Travel History Travel Start No recent travel history available. Last Filed Vital Signs Time Taken Vital Sign Reading 05/06/2019 2:50 PM CDT Blood Pressure 136/85 05/06/2019 2:50 PM CDT Pulse 96 - Temperature - 05/06/2019 2:50 PM CDT Respiratory Rate 18 - Oxygen Saturation - - Inhaled Oxygen - Concentration 05/06/2019 1:00 PM CDT Weight 104.3 kg (230 lb) 05/06/2019 1:00 PM CDT Height 170.2 cm (5' 7") 05/06/2019 1:00 PM CDT Body Mass Index 36.02 Plan of Treatment Health Maintenance Due Date Last Done Comments COLON CANCER SCREENING 1965 ANNUAL FOBT DIABETIC EYE EXAM 1976 DIABETIC FOOT EXAM 1976 URINE MICROALBUMIN 1976 PNEUMOCOCCAL VACCINE 2-64 06/13/2017 06/13/2016 YEARS AT RISK (2 of 3 - PCV13) MEDICARE ANNUAL WELLNESS 07/26/2017 (YEAR 2 or FIRST YEAR if no IPPE) HEMOGLOBIN A1C 08/27/2019 02/25/2019 INFLUENZA VACCINE (#1) 2020 06/13/2016 Procedures Comments Procedure Name Priority Date/Time Associated Diag selena ECHOCARDIOGRAM REPORT - 05/08/2019 SCAN 9:23 PM CDT PERIPHERAL VASCULAR 05/08/2019 REPORT - SCAN 9:21 PM CDT TRANSFUSION SERVICE 05/07/2019 REPORT - SCAN 6:04 PM CDT XR CHEST 2 VIEWS Routine 05/06/2019 ESRD (end sta ge renal 4:12 PM CDT disease) ([facility]) Pre-transplant evaluation for end stage renal disease Maturity onset diabetes mellitus in young ([facility]) Essential hypertension, malignant Anemia of chronic renal failure, unspecified CKD stage Abnormal blood chemistry Pre-operative cardiovascular examination Pure hypercholesterolemia Atherosclerosis of upper [place] coronary artery of upper [place] heart without angina pectoris Impending cerebrovascular accident ([facility]) US ABDOMEN COMPLETE Routine 05/06/2019 ESRD (end stage renal 4:02 PM CDT disease) ([facility]) Pre-transplant evaluation for end stage renal disease Maturity onset diabetes mellitus in young ([facility]) Essential hypertension, malignant Anemia of chronic renal failure, unspecified CKD stage Abnormal blood chemistry Pre-operative cardiovascular examination Pure hypercholesterolemia Atherosclerosis of upper [place] coronary artery of upper [place] heart without angina pectoris Impending cerebrovascular accident ([facility]) STRESS ECHO Routine 05/06/2019 ESRD (end stage renal 2:14 PM CDT disease) ([facility]) Pre-transplant evaluation for end stage renal disease Maturity onset diabetes mellitus in young ([facility]) Essential hypertension, malignant Anemia of chronic renal failure, unspecified CKD stage Abnormal blood chemistry Pre-operative cardiovascular examination Pure hypercholesterolemia Atherosclerosis of upper [place] coronary artery of upper [place] heart without angina pectoris Impending cerebrovascular accident ([facility]) 2D ECHO W/ DOPPLER Routine 05/06/2019 ESRD (end s tage renal (CW/PW/COLOR) 1:33 PM CDT disease) ([facility]) Pre-transplant evaluation for end stage renal disease Maturity onset diabetes mellitus in young ([facility]) Essential hypertension, malignant Anemia of chronic renal failure, unspecified CKD stage Abnormal blood chemistry Pre-operative cardiovascular examination Pure hypercholesterolemia Atherosclerosis of upper [place] coronary artery of upper [place] heart without angina pectoris Impending cerebrovascular accident ([facility]) ECG 12-LEAD Routine 05/06/2019 ESRD (end stage renal 12:47 PM CDT disease) ([facility]) Pre-transplant evaluation for end stage renal disease Maturity onset diabetes mellitus in young (HCC) Essential hypertension, malignant Anemia of chronic renal failure, unspecified CKD stage Abnormal blood chemistry Pre-operative cardiovascular examination Pure hypercholesterolemia Atherosclerosis of upper [place] coronary artery of upper si[place] heart without angina pectoris Impending cerebrovascular accident (HCC) BLOOD TYPING, AUTOMATED Routine 05/06/2019 ESRD ( end stage renal 12:37 PM CDT disease) (HCC) Pre-transplant evaluation for end stage renal disease Maturity onset diabetes mellitus in young (HCC) Essential hypertension, malignant Anemia of chronic renal failure, unspecified CKD stage Abnormal blood chemistry Pre-operative cardiovascular examination Pure hypercholesterolemia Atherosclerosis of upper [place] coronary artery of upper [place] heart without angina pectoris Impending cerebrovascular accident (HCC) after 04/19/2019 Results * ECHOCARDIOGRAM REPORT - SCAN (05/08/2019 9:23 PM CDT) Narrative Performed At This result has an attachment that is n ot available. * PERIPHERAL VASCULAR REPORT - SCAN (05/08/2019 9:21 PM CDT) Narrative Performed At This result has an attachment that is n ot available. * TRANSFUSION SERVICE REPORT - SCAN (05/07/2019 6:04 PM CDT) Narrative Performed At This result has an attachment that is n ot available. * XR chest 2 views (05/06/2019 4:12 PM CDT) Specimen Narrative Performed At FINAL REPORT [facility] Chest, PA and lateral. History: End-stage renal disease. Comparison: None available. Discussion:The cardiomediastinal si lhouette and pulmonary vasculature are within normal limits. T he lungs are clear without evidence of consolidation or effusion. There are no acute osseous abnormalities. The soft tissues are unr emarkable. IMPRESSION: No acute cardiopulmonary abnormality. Signed: Gema Nicholas MD Report Verified Date/Time: 9 16:25:39 Reading Location: [address] [facility] [place] [facility] Procedure Note Interface, External Ris In - 05/06/2019 4:27 PM CDT FINAL REPORT Chest, PA and lateral. History: End-stage renal disease. Comparison: None available. Discussion: The cardiomediastinal silhouette and pulmonary vasculature are within normal limits. The lungs are clear without evidence of consolidation or effusion. There are no acute osseous abnormalities. The soft tissues are unremarkable. IMPRESSION: No acute cardiopulmonary abnormality. Signed: Gema Nicholas MD Report Verified Date/Time: 05/06/2019 16:25:39 Reading Location: [address] Radiology Reading Room Performing Organization Address City/State/Zipcode Ph one Number [facility] * US abdomen complete (05/06/2019 4:02 PM CDT) Specimen Narrative Performed At FINAL REPORT [facility] Ultrasound of the Abdomen, 05/06/2019. Clinical History:End-stage renal di sease. Comparison: None. Discussion: Sonographic evaluation of the abdomen i s performed. Liver: 16.2 cm in length at the rig ht midclavicular line, normal in size.Normal echogenicity.Homoge neous echotexture.No mass.Main portal vein diameter 1.3 cm. Biliary tree:Common duct 5 mm.N o biliary dilatation. Gallbladder:No gallstones.No wa ll thickening.No pericholecystic fluid.Absent sonographic [place] sig n. Pancreas: Obscured by bowel gas. Ascites:None. Spleen:12.3 cm in length, normal in size. Kidneys: Right kidney 9.8 cm in jane gth, normal in size, with cortical thickness of 1.8 cm.Left k idney 10.3 cm in length, normal in size, with cortical thickness of 1.1 cm.Normal cortical echogenicity.No mass.No shadowi ng calculus.No hydronephrosis. IVC/Aorta:Segments partially seen. Unremarkable. Impression: Unremarkable abdominal ultrasound. Signed: Gema Nicholas MD Report Verified Date/Time: 9 16:42:41 Reading Location: [address] Reading Room Procedure Note Interface, External Ris In - 05/06/2019 4:44 PM CDT FINAL REPORT Ultrasound of the Abdomen, 05/06/2019. Clinical History: End-stage renal disease. Comparison: None. Discussion: Sonographic evaluation of the abdomen is performed. Liver: [...] Impression: Unremarkable abdominal ultrasound. Signed: Gema Nicholas MD Report Verified Date/Time: 05/06/2019 16:42:41 Reading Location: [address] Radiology Reading Room Performing Organization Address City/State/Zipcode Ph one Number GE [facility]IS * Stress Echo With Tracing (05/06/2019 2:14 PM CDT) Ejection Fraction [facility] Specimen Narrative Performed At Stress Echocardiography Report [facility] Demographics [facility] Patient NameELIDIA HART Date of Study05/06/2019 CLYDE Rizo Male Visit [id number] Race Room NumberOP Number Date of 1965Referring Samantha Damon Physician Age 53 year(s)Traffic Director Chandni Reardon [facility] Interpreting Oscar garcía MD Physician FellowCHERYL Alegria Procedure Type of Study Stress procedure:STRESS(T MT)ECHO W/TMT TRACING (Routine) Indications:Acute Chest Pain/ Suspected CAD. Clinical History HGB 12.5 HCT 40.2 % CAD, DM, ESRD, HTN, Obesity s/p Coronary stent (2018) Contrast Medium: Definity. Amount - 2 m l Height: 67 inches Weight: 104.33 kg (23 0 lbs) BSA: 2.15 m^2 BMI: 36.02 kg/m^2 HR: 75 bpm BP: 125/85 mmHg Rest ECG Baseline ECG notable for normal sinus r hythm. No significant ST elevations or depressions on baseline ECG. Stress Stress Type: Pharmacologic Predicted HR: 168 bpm Results Global LVEF (rest): Normal (LVEF >50%) Global LVEF (stress): Hyperkinetic (LVE F >70%) ECG Stress and recovery ECG without signifi cant ST elevations or depressions. Arrhythmias Stress ECG notable for brief episode of ventricular trigeminy, occasional PVCs. Summary Indications: pre surgical evaluation fo r organ transplantation Procedure done: Dobutamine stress echoc ardiogram. Complications: None Medications: Dobutamine infusion with p eak rate of 40 mcg/kg/min. ECG: The resting heart rate was 77 bpm. Resting electrocardiogram showed normal sinus rhythm with no ischemic ch anges. The heart rate increased to 148 bpm which corresponded to 88% maxim um predicted heart rate. There were no ischemic ECG changes noted. Occasion al PVCs and rare ventricular trigeminy noted. The blood pressure at baseline was 125/85 mm Hg and was 172/70 at peak stress. The patient did not develop any significant symptoms. Echocardiogram: Resting echocardiogram showed normal LV systolic function, estimated LVEF of >60%. Normal wall mot ion. At peak stress, there is hypokinesis of all apical segments and LV apex with complete recovery of all the segments in 5 minutes - post st ress scanning. All other segments showed appropriate LV augmentation. Sug gestive of mid LAD ischemia. Conclusion: Positive Dobutamine Stress echocardiogram for inducible ischemia in the mid LAD territory, at a diagnostic level of stress. Signature Procedure Note Interface, External Ris In - 05/08/2019 2:49 PM CDT Stress Echocardiography Report Demographics Patient Name ELIDIA HART Date of Study 05/06/2019 CLYDE KEITH Gender Male Visit Number [id number] Race Room Number OP Number Date of 1965 Referring Samantha Damon Physician Age 53 year(s) Traffic Director Chandni Reardon [facility] Interpreting Oscar Schuler MD Physician Fellow CHERYL Mortensen Procedure Type of Study Stress procedure:STRESS(TMT)ECHO W/TMT TRACING (Routine) Indications:Acute Chest Pain/ Suspected CAD. Clinical History HGB 12.5 HCT 40.2 % CAD, DM, ESRD, HTN, Obesity s/p Coronary stent (2018) Contrast Medium: Definity. Amount - 2 ml Height: 67 inches Weight: 104.33 kg (230 lbs) BSA: 2.15 m^2 BMI: 36.02 kg/m^2 HR: 75 bpm BP: 125/85 mmHg Rest ECG [...] at a diagnostic level of stress. Signature Performing Organization Address City/State/Zipcode Ph one Number [facility] * 2D Echo W/Doppler(CW/PW/Color) (05/06/2019 1:33 PM CDT) Ejection Fraction [facility] Specimen Narrative Performed At Transthoracic Echocardiography Report (TTE) [facility] Demographics [facility] Patient NameELIDIA HART Date of Study05/06/2019 CLYDE Rizo Male Visit [id number] Race Room NumberOP Number Date of 1965Referring Samantha Damon Physician Age 53 year(s)Traffic Director Chandni Reardon [facility] Interpreting Oscar garcía MD Physician Fellowll CHERYL Blanco Procedure Type of Study TTE procedure:2DECHO W DO PPLER(CW/PW/COLOR) (Routine) Indications:Pre-surgical evaluation of organ transplant. Clinical History HGB 12.5 HCT 40.2 % CAD, DM, ESRD, HTN, Obesity s/p Coronary stent (2018) Contrast Medium: Definity. Amount - 2 m l Height: 67 inches Weight: 104.33 kg (23 0 lbs) BSA: 2.15 m^2 BMI: 36.02 kg/m^2 HR: 78 bpm BP: 125/85 mmHg Summary 1. The left ventricle is chamber size ( by vol index) is normal. Mild LVH. All of the LV segments contract normall y. LVEF by Spears's method of disk assessment is normal (>60%). Grade 1 di astolic dysfunction (impaired relaxation and low-normal LA pressure). LA size is normal (16-34 ml/m2) . 2. The right ventricular chamber size a nd systolic function are within normal limits. RA size is normal. Unabl e to estimate peak systolic PA pressure; inadequate TR velocity signal . 3. No significant valvular abnormalitie s. Previous Study No prior exam available for comparison. Signature Findings Technical Quality: Technically adequate exam. Left Ventricle LV endoc ardium is well visualized with IV ultrasound enhancing agent. The left ventricle is chamber size (by vol index) is normal (male - LVED vol - 34-74ml/m2). LV septal thickness is normal (0.6-1.1cm). LV posterior wall thickness is mildly increased (1.2-1.4cm) . All of the LV segments contract normally . LVEF by Spears's method of disk assessment is normal (>60%) . Grade 1 diastolic dysfunction (impaired relaxation and low-normal LA pressure). Left AtriumLA s ize is normal (16-34 ml/m2) . Right VentricleThe righ t ventricular chamber size and systolic function are within normal limits. Right Atrium RA siz e is normal. Aortic Valve Normal tri-leaflet Aortic Valve. Aortic annulus appears calcified . Mitral Valve Leafle t motion - normal. Tricuspid ValveUnable t o estimate peak systolic PA pressure; inadequate TR velocity signal. Pulmonic Valve Normal P V structure and function by limited views and Doppler. Aorta Aortic root size (SInus of Valsalva diameter) is normal . PericardiumNo s ignificant pericardial effusion is visualized. IVC/SVC/PA/PV/PleuralThe estimated RA pressure by IVC dynamics 5-10mmHg . Chambers/Structures Left Atrium LA Volume: 53.36 [...] Velocity: 0.59 m/s Mean Gradient: 1.39 mmHg Procedure Note Interface, External Ris In - 05/08/2019 2:53 PM CDT Transthoracic Echocardiography Report (TTE) Demographics Patient Name ELIDIA HART Date of Study 05/06/2019 CLYDE KEITH Gender Male Visit Number [id number] Race Room Number OP Number Date of 1965 Referring Samantha Damon Physician Age 53 year(s) Traffic Director Chandni Reardon RDCS Interpreting Oscar Schuler MD Physician Fellow CHERYL Mortensen Procedure Type of Study TTE procedure:2DECHO W DOPPLER(CW/PW/COLOR) (Routine) Indications:Pre-surgical evaluation of organ transplant. Clinical History HGB 12.5 HCT 40.2 % CAD, DM, ESRD, HTN, Obesity s/p Coronary stent (2018) Contrast Medium: Definity. Amount - 2 ml Height: 67 inches Weight: 104.33 kg (230 lbs) BSA: 2.15 m^2 BMI: 36.02 kg/m^2 HR: 78 bpm BP: 125/85 mmHg Summary 1. The left ventricle is chamber size (by vol index) is normal. Mild LVH. All of the LV segments contract normally. LVEF by Spears's method of disk assessment is normal (>60%). Grade 1 diastolic dysfunction (impaired relaxation and low-normal LA pressure). LA size is normal (16-34 ml/m2) . 2. The right ventricular chamber size and systolic function are within normal limits. RA size is normal. Unable to estimate peak systolic PA pressure; inadequate TR velocity signal. 3. No significant valvular abnormalities. Previous Study No prior exam available for comparison. Signature Findings Technical Quality: Technically adequate exam. Left Ventricle LV endocardium is well visualized with IV ultrasound enhancing agent. The left ventricle is chamber size (by vol index) is normal (male - LVED vol - 34-74ml/m2). LV septal thickness is normal (0.6-1.1cm). LV posterior wall thickness is mildly increased (1.2-1.4cm) . All of the LV segments contract normally . LVEF by Spears's method of disk assessment is normal (>60%) . Grade 1 diastolic dysfunction (impaired [...] The estimated RA pressure by IVC dynamics 5-10mmHg . Chambers/Structures Left Atrium LA Volume: 53.36 [...] Velocity: 0.59 m/s Mean Gradient: 1.39 mmHg Performing Organization Address [facility] Ph one Number [facility] MKCKESSON CPA * ECG 12 lead (05/06/2019 12:47 PM CDT) Specimen Narrative Performed At Ventricular Rate 81 BPM GE MUSE Atrial Rate 81 BPM P-R Interval 186 ms QRS Duration 82 ms Q-T Interval 424 ms QTC Calculation(Bazett) 492 ms P [place] 55 degrees R [place] 27 degrees T [place] 48 degrees Normal sinus rhythm Prolonged QT Abnormal ECG No previous ECGs available Confirmed by MD Lema Roberto ([id number]) on 05/06/2019 1:59:56 PM Procedure Note Interface, External Ris In - 05/06/2019 2:00 PM CDT Ventricular Rate 81 BPM Atrial Rate 81 BPM P-R Interval 186 ms QRS Duration 82 ms Q-T Interval 424 ms QTC Calculation(Bazett) 492 ms P [place] 55 degrees R [place] 27 degrees T [place] 48 degrees Normal sinus rhythm Prolonged QT Abnormal ECG No previous ECGs available Confirmed by MD Lema Roberto ([id number]) on 05/06/2019 1:59:56 PM Performing Organization Address City/State/Zipcode Ph one Number NIKOLAS MEDLEY * Blood typing, automated (05/06/2019 12:37 PM CDT) ABO/RH AUTOMATED (BEAKER) O POSITIVE [facility] Specimen Blood Performing Organization Address City/State/Zipcode Ph one Number [facility] [address] [place] [address] [facility] after 04/19/2019 Insurance Payer Benefit Subscriber ID Type Phone Address Plan / Group MEDICARE MEDICARE A xxxxxxxxxxx Medicare B
--- OUTSIDE RECORDS SUMMARY | 2020-04-23 19:05 | XMS REPORT | Clinical Summary ---
Author Author [facility] Organization [facility] Address Unknown Phone Unavailable Care Team Providers Care Cloth Shearer Name Role Phone PCP Unavailable Allergies Comments [...] II, MD ESRD (end stage renal disease) ([facility]); Pre-transplant evaluation for end stage renal disease; Maturity onset diabetes mellitus in young ([facility]); Essential hypertension, malignant; Anemia of chronic renal failure, unspecified CKD stage; Abnormal blood chemistry; Pre-operative cardiovascular examination; Pure hypercholesterolemia; Atherosclerosis of [place] coronary artery of [place] heart without angina pectoris; Impending cerebrovascular accident ([facility]) 05/06/2019 Hospital Encounter Wilton Singh II, MD ESRD (end stage renal disease) ([facility]); Pre-transplant evaluation for end stage renal disease; Maturity onset diabetes mellitus in young ([facility]); Essential hypertension, malignant; Anemia of chronic renal failure, unspecified CKD stage; Abnormal blood chemistry; Pre-operative cardiovascular examination; Pure hypercholesterolemia; Atherosclerosis of [place] coronary artery of [place] heart without angina pectoris; Impending cerebrovascular accident ([facility]) 05/06/2019 Hospital Radiology Encounter Wilton Singh II, MD ESRD (end stage renal disease) ([facility]); Pre-transplant evaluation for end stage renal disease; Maturity onset diabetes mellitus in young ([facility]); Essential hypertension, malignant; Anemia of chronic renal failure, unspecified CKD stage; Abnormal blood chemistry; Pre-operative cardiovascular examination; Pure hypercholesterolemia; Atherosclerosis of [place] coronary artery of [place] heart without angina pectoris; Impending cerebrovascular accident ([facility]); Pre-transplant evaluation for chronic kidney disease 05/06/2019 Hospital Cardiology Encounter Wilton Singh II, MD ESRD (end stage renal disease) ([facility]); Pre-transplant evaluation for end stage renal disease; Maturity onset diabetes mellitus in young ([facility]); Essential hypertension, malignant; Anemia of chronic renal failure, unspecified CKD stage; Abnormal blood chemistry; Pre-operative cardiovascular examination; Pure hypercholesterolemia; Atherosclerosis of [place] coronary artery of [place] heart without angina pectoris; Impending cerebrovascular accident (HCC) 05/06/2019 Hospital Cardiology Encounter Wilton Singh II, MD ESRD (end stage renal disease) ([facility]); Pre-transplant evaluation for end stage renal disease; Maturity onset diabetes mellitus in young (HCC); Essential hypertension, malignant; Anemia of chronic renal failure, unspecified CKD stage; Abnormal blood chemistry; Pre-operative cardiovascular examination; Pure hypercholesterolemia; Atherosclerosis of [place] coronary artery of [place] heart without angina pectoris; Impending cerebrovascular accident [...] sta ge renal 4:12 PM CDT disease) ([facility]) Pre-transplant evaluation for end stage renal disease Maturity onset diabetes mellitus in young ([facility]) Essential hypertension, malignant Anemia of chronic renal failure, unspecified CKD stage Abnormal blood chemistry Pre-operative cardiovascular examination Pure hypercholesterolemia Atherosclerosis of [place] coronary artery of [place] heart without angina pectoris Impending cerebrovascular accident ([facility]) US ABDOMEN COMPLETE Routine 05/06/2019 ESRD (end stage renal 4:02 PM CDT disease) ([facility]) Pre-transplant evaluation for end stage renal disease Maturity onset diabetes mellitus in young ([facility]) Essential hypertension, malignant Anemia of chronic renal failure, unspecified CKD stage Abnormal blood chemistry Pre-operative cardiovascular examination Pure hypercholesterolemia Atherosclerosis of [place] coronary artery of [place] heart without angina pectoris Impending cerebrovascular accident ([facility]) STRESS ECHO Routine 05/06/2019 ESRD (end stage renal 2:14 PM CDT disease) ([facility]) Pre-transplant evaluation for end stage renal disease Maturity onset diabetes mellitus in young ([facility]) Essential hypertension, malignant Anemia of chronic renal failure, unspecified CKD stage Abnormal blood chemistry Pre-operative cardiovascular examination Pure hypercholesterolemia Atherosclerosis of [place] coronary artery of [place] heart without angina pectoris Impending cerebrovascular accident ([facility]) 2D ECHO W/ DOPPLER Routine 05/06/2019 ESRD (end s tage renal (CW/PW/COLOR) 1:33 PM CDT disease) ([facility]) Pre-transplant evaluation for end stage renal disease Maturity onset diabetes mellitus in young ([facility]) Essential hypertension, malignant Anemia of chronic renal failure, unspecified CKD stage Abnormal blood chemistry Pre-operative cardiovascular examination Pure hypercholesterolemia Atherosclerosis of [place] coronary artery of [place] heart without angina pectoris Impending cerebrovascular accident ([facility]) ECG 12-LEAD Routine 05/06/2019 ESRD (end stage renal 12:47 PM CDT disease) ([facility]) Pre-transplant evaluation for end stage renal disease Maturity onset diabetes mellitus in young (HCC) Essential hypertension, malignant Anemia of chronic renal failure, unspecified CKD stage Abnormal blood chemistry Pre-operative cardiovascular examination Pure hypercholesterolemia Atherosclerosis of [place] coronary artery of [place] heart without angina pectoris Impending cerebrovascular accident (HCC) BLOOD TYPING, AUTOMATED Routine 05/06/2019 ESRD ( end stage renal 12:37 PM CDT disease) (HCC) Pre-transplant evaluation for end stage renal disease Maturity onset diabetes mellitus in young (HCC) Essential hypertension, malignant Anemia of chronic renal failure, unspecified CKD stage Abnormal blood chemistry Pre-operative cardiovascular examination Pure hypercholesterolemia Atherosclerosis of [place] coronary artery of [place] heart without angina pectoris Impending cerebrovascular accident [...] CDT) Specimen Narrative Performed At FINAL REPORT [facility] Chest, PA and lateral. History: End-stage renal disease. Comparison: None available. Discussion:The cardiomediastinal si lhouette and pulmonary vasculature are within normal limits. T he lungs are clear without evidence of consolidation or effusion. There are no acute osseous abnormalities. The soft tissues are unr emarkable. IMPRESSION: No acute cardiopulmonary abnormality. Signed: Gema Nicholas MD Report Verified Date/Time: 9 16:25:39 Reading [place] [address] [facility] [place] Procedure Note Interface, External Ris [...] Report Verified Date/Time: 05/06/2019 16:25:39 Reading Location: [address] Radiology Reading Room Performing Organization Address City/State/Zipcode Ph one Number [facility] * US abdomen complete (05/06/2019 4:02 PM CDT) Specimen Narrative Performed At FINAL REPORT [facility] Ultrasound of the Abdomen, 05/06/2019. Clinical History:End-stage [...] Report Verified Date/Time: 9 16:42:41 Reading Location: [address] Radiolo gy Reading Room Procedure Note [...] Report Verified Date/Time: 05/06/2019 16:42:41 Reading Location: [address] Radiology Reading Room Performing Organization Address City/State/Zipcode Ph one Number GE RIS * Stress Echo With Tracing (05/06/2019 2:14 PM CDT) Ejection Fraction [facility] Specimen Narrative Performed At Stress Echocardiography Report [facility] Demographics [facility] Patient NameELIDIA HART Date of Study05/06/2019 CLYDE Rizo Male Visit [id number] Race Room NumberOP Number Date of 1965Referring Samantha Damon Physician Age 53 year(s)Block Feeder Chandni Reardon [facility] Interpreting Oscar garcía MD Physician FellowCHERYL Alegria [...] 05/06/2019 CLYDE KEITH Gender Male Visit Number [id number] Race Room Number OP Number Date of 1965 Referring Samantha Damon Physician Age 53 year(s) Block Feeder Chandni Reardon RDCS Interpreting Oscar Schuler MD [...] Performing Organization Address City/State/Zipcode Ph one Number [facility] * 2D Echo W/Doppler(CW/PW/Color) (05/06/2019 1:33 PM CDT) Ejection Fraction [facility] Specimen Narrative Performed At Transthoracic Echocardiography Report (TTE) [facility] Demographics [facility] Patient NameELIDIA HART Date of Study05/06/2019 CLYDE Rizo Male Visit [id number] Race Room NumberOP Number Date of 1965Referring Samantha Damon Physician Age 53 year(s)Block Feeder Chandni Reardon [facility] Interpreting Oscar garcía MD Physician Fellowll CHERYL [...] 05/06/2019 CLYDE KEITH Gender Male Visit Number [id number] Race Room Number OP Number Date of 1965 Referring Samantha Damon Physician Age 53 year(s) Block Feeder Chandni Reardon RDCS Interpreting Oscar Schuler MD [...] Mean Gradient: 1.39 mmHg Performing Organization Address [facility] [place] [facility] MKCKESSON CPA * ECG 12 lead (05/06/2019 12:47 PM CDT) Specimen Narrative Performed At Ventricular Rate 81 BPM GE MUSE Atrial Rate 81 BPM P-R Interval 186 ms QRS Duration 82 ms Q-T Interval 424 ms QTC Calculation(Bazett) 492 ms P [place] 55 degrees R [place] 27 degrees T [place] 48 degrees Normal sinus rhythm Prolonged QT Abnormal ECG No previous ECGs available Confirmed by MD Lema Roberto ([id number]) on 05/06/2019 1:59:56 PM Procedure Note Interface, External Ris In - 05/06/2019 2:00 PM CDT Ventricular Rate 81 BPM Atrial Rate 81 BPM P-R Interval 186 ms QRS Duration 82 ms Q-T Interval 424 ms QTC Calculation(Bazett) 492 ms P [place] 55 degrees R [place] 27 degrees T [place] 48 degrees Normal sinus rhythm Prolonged QT Abnormal ECG No previous ECGs available Confirmed by MD Lema Roberto ([id number]) on 05/06/2019 1:59:56 PM Performing Organization Address City/State/Zipcode Ph one Number NIKOLAS MEDLEY * Blood typing, automated (05/06/2019 12:37 PM CDT) ABO/RH AUTOMATED (BEAKER) O POSITIVE [facility] Specimen Blood Performing Organization Address City/State/Zipcode Ph one Number [facility] [address] [place] [address] [facility] after 04/19/2019 Insurance Payer Benefit Subscriber ID Type Phone Address Plan / Group MEDICARE MEDICARE A xxxxxxxxxxx Medicare B
--- OUTSIDE RECORDS SUMMARY | 2020-04-23 19:06 | XMS REPORT | Continuity of Care Document ---
Author Author [facility] t Organization [facility] Address [address] [place] [address] Phone Unavailable Care Team Providers Care Manager Data Warehouse Name Role Phone MD [facility] Ksenia RAM Attphys Unavailable Gisela Jimenez Attphys Unavailable Nancy, E Joseline Attphys Unavailable Ksenia Lubin Attphys Unavailable Kishore NELSON, Alka Attphys Unavailable Te NELSON, Ester Attphys Unavailable Nelson Locke MD Attphys Mary MERAZ Attphys Unavailable Nelson LOCKE Attphys Unavailable Sharonda RECIO Attphymary Unavailable Payers Payer Name Policy Type Policy Number Effective Date Expiration Date Mary martinez Medicare A & B [id number] 2016 00:00:00 [facility] MEDICAREMEDICARE A BxxxxxxxxxxxMedicare xxxxxxxxxxx [facility] Problems Condition Name Condition Details Condition Category [...] urine. He does not have potential donors. [facility] Hypertension Hypertension Disease Active 2019-02-25 00:00:00 Last Assessment & Plan: Blood pressure management per nephrology. [facility] Diabetes mellitus Diabetes mellitus Disease Active 2019-02-25 00:00:00 Overview: Type 2Last Assessment & Plan: Diabetes type 2. He will continue follow up with primary care for blood glucose management. [facility] Pre-transplant evaluation for chronic kidney disease P re-transplant evaluation for chronic kidney disease Disease Active 2019-02-25 00:00:00 Last Assessment & Plan: He is an acceptable candidate for kidney transplant pending a cardiac cath due to age and diabetes. [facility] Obesity Obesity Disease Active 2019-02-25 00:00:00 Last Assessment & Plan: Current BMI is 36. Though his body habitus appears smaller. He was encouraged to monitor his oral intake and to exercise as tolerated. [facility] Chest pain Chest pain Problem Active [facility] End-stage renal disease ESRD (end stage renal disease) Problem Active [facility] Hyperglycemia Hyperglycemia Problem Active [facility] Otitis externa Problem Active [facility] Fever Problem Active [facility] Failure of outpatient treatment Problem Active [facility] Allergies, Adverse Reactions, Alerts Allergy Name Allergy Type Status Severity Reaction(s) Onset Date Inacti ve Date Treating Clinician Comments Source adhesive tape DA Active MO 2018-10-02 00:00:00 [facility] Adhesive Tape Drug Allergy Active Rash 2018-10-02 00:00:00 Silk Tape Only. [facility] No Known Allergies DA Active U 2014-02-16 00:00:00 [facility] Family History Family Member Diagnosis Comments Start Date Stop Date Source Natural brother Blindness [facility] Natural brother Kidney failure [facility] Natural brother Peripheral vascular disease [facility] Natural brother Diabetes [facility] Natural father [facility] Natural father Kidney failure [facility] Natural mother Diabetes [facility] Natural mother Peripheral vascular disease [facility] Family member Colon cancer [facility] Family member Heart disease [facility] Social History Social Habit Start Date Stop Date Quantity Comments Source History SDOH Alcohol Std Drinks [facility] History SDOH Alcohol Binge [facility] Sex Assigned At [facility] History SDOH Alcohol Frequency 2019-02-25 00:00:00 2019-02-25 00:00:0 0 1 [facility] Smoking Status Start Date Stop Date Source Never smoker [facility] Medications Ordered Medication Name Filled Medication Name Start Date Stop Da te Current Medication? Ordering Clinician Indication Dosage Frequency Signature (SIG) Comments Components Source Clonidine Hcl (Catapres) 0.2 Mg TABLET Clonidine Hcl (Catapr es) 0.2 Mg TABLET 2020-04-22 09:35:00 Yes .2 Twice A Day [facility] Insulin Detemir (Levemir Flextouch) 100 Unit/[address]PEN Insulin Detemir (Levemir Flextouch) 100 Unit/1 Ml INSULN.PEN 2020-04-21 08:34:00 Yes 40 Bedtime [facility] Acetaminophen With Codeine (Tylenol With Codeine #3 Ta blet) 1 Each TABLET Acetaminophen With Codeine (Tylenol With Codeine #3 Tablet) 1 Each TABLET 2020-04-21 08:33:00 Yes 300 Every 8 Hours as n eeded for Pain [facility] Amoxicillin/Potassium Clav (Augmentin 875-125 Tablet) 1 Each TABLET Amoxicillin/Potassium Clav (Augmentin 875-125 Tablet) 1 Each TABLET 2020-04-21 08:33:00 Yes 1 Twice A Day [facility] Glipizide Glipizide 2020-04-21 08:33:00 Yes 5 Daily [facility] Neomycin/Polymyxin B Sulf/Hc (Dvzyrymy-Bdtagbtmh-Ra Ea r Soln) 10 Ml SOLUTION Neomycin/Polymyxin B Sulf/Hc (Sxilskbf-Yyhjlepkx-Ex Ear Soln) 10 Ml SOLUTION 2020-04-21 08:33:00 Yes 0 Four Times Daily [facility] aspirin 81 MG EC tablet 2019-02-25 10:50:02 Yes 81mg QD Take 81 mg by mouth daily. [facility] metoprolol (LOPRESSOR) 25 MG tablet 2019-02-25 10:50:02 Yes 25mg QD Take 25 mg by mouth daily. [facility] sevelamer (RENVELA) 800 mg tablet 2019-02-25 10:50:02 Yes 2400mg Take 2,400 mg by mouth 3 (three) times daily with meals. [facility] sucroferric oxyhydroxide (VELPHORO) 500 mg Chew 2019-02-25 10:50 :02 Yes 500mg Q.[id number] Take 500 mg by mouth 3 (three) times daily. [facility] clopidogrel (PLAVIX) 75 mg tablet 2019-02-25 10:50:02 Yes 75mg QD Take 75 mg by mouth daily. [facility] dexlansoprazole 60 mg capsule 2019-02-25 10:50:02 Yes 60mg QD Take 60 mg by mouth daily. [facility] Pantoprazole Sod (Protonix) 40 Mg/Ml SUSP Pantoprazole Sod (Protonix) 40 Mg/Ml SUSP 2017-07-08 13:24:00 Yes 40 Before Breakfast [facility] Metoclopramide Hcl Metoclopramide Hcl 2017-07-08 13:24:00 2020-03-25 00:00:00 No 10 Twice Daily Before Meals [facility] Amlodipine Besylate (Norvasc) 10 Mg TAB Amlodipine Besylate (Norvasc) 10 Mg TAB 2017-07-08 13:23:00 Yes 10 Bedtime [facility] Glipizide (Glipizide Xl) 2.5 Mg TABCR Glipizide (Glipizide X l) 2.5 Mg TABCR 2017-07-08 13:23:00 2020-04-21 00:00:00 No 2.5 Daily @08 [facility] Insulin Detemir (Levemir) 100 Unit/1 Ml VIAL Insulin D etemir (Levemir) 100 Unit/1 Ml VIAL 2020-04-21 00:00:00 No 30 Bedtime [facility] Vital Signs Vital Name Observation Time Observation Value Comments Source Body Temperature 2020-04-22 11:32:00 99.8 [degF] [facility] Weight 2020-04-22 01:01:00 238.44 [lb_av] [facility] BMI (Body Mass Index) 2020-04-22 01:01:00 37.3 kg/m2 [facility] Systolic blood pressure 2019-05-06 14:50:00 136 mm[Hg] [facility] Diastolic blood pressure 2019-05-06 14:50:00 85 mm[Hg] [facility] Heart rate 2019-05-06 14:50:00 96 /min [facility] Respiratory rate 2019-05-06 14:50:00 18 /min [facility] Body height 2019-05-06 13:00:00 170.2 cm [facility] Body weight Measured 2019-05-06 13:00:00 104.327 kg [facility] BMI 2019-05-06 13:00:00 36.02 kg/m2 [facility] Procedures Procedure Date / Time Performed Performing Clinician [facility] e ECHOCARDIOGRAM REPORT - SCAN 2019-05-08 21:23:16 Provider, Stephany lt Scanning [facility] PERIPHERAL VASCULAR REPORT - SCAN 2019-05-08 21:21:25 Provid er, Default Scanning [facility] TRANSFUSION SERVICE REPORT - SCAN 2019-05-07 18:04:28 Provid er, Default Scanning [facility] XR CHEST 2 VIEWS 2019-05-06 16:12:00 Wilton Locke [facility] US ABDOMEN COMPLETE 2019-05-06 16:02:00 Wilton Locke CH I [facility] STRESS ECHO 2019-05-06 14:14:07 Wilton Locke [facility] 2D ECHO W/ DOPPLER (CW/PW/COLOR) 2019-05-06 13:33:00 Wilton Locke [facility] ECG 12-LEAD 2019-05-06 12:47:01 Wilton Locke [facility] BLOOD TYPING, AUTOMATED 2019-05-06 12:37:00 Wilton Locke [facility] Plan of Care Planned Activity Planned Date Details Comments Source Future Scheduled Test 2020-05-25 00:00:00 INFLUENZA VACCINE (#1) [code = INFLUENZA VACCINE (#1)] [facility] Future Scheduled Test 2019-08-27 00:00:00 Hemoglobin A1c clarissa surement (procedure) [code = 35699207] [facility] Future Scheduled Test 2017-07-26 00:00:00 MEDICARE ANNUAL WE LLNESS (YEAR 2 or FIRST YEAR if no IPPE) [code = MEDICARE ANNUAL WELLNESS (YEAR 2 or FIRST YEAR if no IPPE)] [facility] Future Scheduled Test 2017-06-13 00:00:00 PNEUMOCOCCAL VACCI NE 2-64 YEARS AT RISK (2 of 3 - PCV13) [code = PNEUMOCOCCAL VACCINE 2-64 YEARS AT RISK (2 of 3 - PCV13)] [facility] Future Scheduled Test 1976 00:00:00 DIABETIC EYE EXAM [code = DIABETIC EYE EXAM] [facility] Future Scheduled Test 1976 00:00:00 Diabetic foot exam ination (regime/therapy) [code = 417282043] [facility] Future Scheduled Test 1976 00:00:00 Urine screening fo r protein (procedure) [code = 051094112] [facility] Future Scheduled Test 1966 00:00:00 Screening for elidia gnant neoplasm of colon (procedure) [code = 493034828] [facility] Instilling Ear Drops [facility] Instructions Otitis Externa - Adult [facility] Instructions Ear Pain - Adult [facility] Instructions Infection Control [facility] Encounters Start Date/Time End Date/Time Encounter Type Ad[facility] Encounter ID Source 2020-04-19 22:53:00 2020-04-22 13:16:00 Discharged Inpatient 1 ROBBY RAM [facility] [id number] [facility] I [facility] 2018-12-31 11:43:00 2018-12-31 17:03:00 Departed Emergency Room [facility] [id number] [facility] 2017-12-20 17:53:00 2017-12-21 02:19:00 Departed Emergency Room [facility] [id number] [facility] 2017-07-07 20:46:00 2017-07-08 14:10:00 Discharged Inpatient (obs) ER EMMAAGUILA DAVIS [facility] [id number] [facility] Results Test Description Test Time Test Comments Results Result Comments Source Capillary blood glucose measurement by glucometer (mas s/volume) 2020-04-22 10:38:00 Test Item Bedside Glucose (test code = 59572-2) 259 70-120 Meter ID: [id number] leukocytes automated count (number/volume)2020-04-22 05:40:00* Test Item Value Reference Range Interpretation Comments White Blood Count (test code = 6690-2) 8.46 4.8-10.8 [facility] erythrocytes automated count (number/volume)2020-04-22 05:40:00* Test Item Value Reference Range Interpretation Comments Red Blood Count (test code = 789-8) 3.77 4.3-5.7 [facility] hemoglobin measurement (moles/volume)2020-04-22 05:40:00* Test Item Value Reference Range Interpretation Comments Hemoglobin (test code = 34581-3) 10.7 14.0-18.0 [facility] HospitalAutomated blood hematocrit (volume fraction)2020-04-22 05:40:00* Test Item Value Reference Range Interpretation Comments Hematocrit (test code = 4544-3) 33.4 38.2-49.6 [facility] HospitalAutomated erythrocyte mean corpuscular jglsde4112-39-63 05:40:00* Test Item Value Reference Range Interpretation Comments Mean Corpuscular Volume (test code = 787-2) 88.6 81-99 [facility] HospitalAutomated erythrocyte mean corpuscular hemoglobin (mass per erythrocyte)2020-04-22 05:40:00* Test Item Value Reference Range Interpretation Comments Mean Corpuscular Hemoglobin (test code = 785-6) 28.4 28-32 [facility] HospitalAutomated erythrocyte mean corpuscular hemoglobin concentration measurement (mass/volume)2020-04-22 05:40:00* Test Item Value Reference Range Interpretation Comments Mean Corpuscular Hemoglobin Concent (test code = 786-4) 32.0 31-35 [facility] HospitalRDW FwgUp-Pij5703-67-30 05:40:00* Test Item Value Reference Range Interpretation Comments Red Cell Distribution Width (test code = 74648-8) 12.9 11.7 -14.4 [facility] HospitalAutomated blood platelet count (count/volume)2020-04-22 05:40:00* Test Item Value Reference Range Interpretation Comments Platelet Count (test code = 777-3) 225 140-360 [facility] HospitalAutomated blood segmented neutrophil count as percentage of total keudxbjxmw1951-82-00 05:40:00* Test Item Value Reference Range Interpretation Comments Neutrophils (%) (Auto) (test code = 18302-0) 63.8 38.7-80.0 [facility] HospitalAutomated blood lymphocyte count as percentage ot total azmrkozcme0274-57-53 05:40:00* Test Item Value Reference Range Interpretation Comments Lymphocytes (%) (Auto) (test code = 736-9) 20.1 18.0-39.1 [facility] HospitalAutomated blood monocyte count as percentage of total xpflapcmly7370-96-88 05:40:00* Test Item Value Reference Range Interpretation Comments Monocytes (%) (Auto) (test code = 5905-5) 13.2 4.4-11.3 [facility] HospitalAutomated blood eosinophil count as percentage of total pkjhnmdtti8381-92-64 05:40:00* Test Item Value Reference Range Interpretation Comments Eosinophils (%) (Auto) (test code = 713-8) 1.3 0.0-6.0 [facility] HospitalAutomated blood basophil count as percentage of total ezlrxogffe1565-58-80 05:40:00* Test Item Value Reference Range Interpretation Comments Basophils (%) (Auto) (test code = 706-2) 0.9 0.0-1.0 [facility] HospitalFluoroscopic procedure less than one hour uwduqgqt4216-45-41 05:40:00* Test Item Value Reference Range Interpretation Comments IM GRANULOCYTES % (test code = IM GRANULOCYTES %) 0.7 0.0- 1.0 [facility] HospitalAutomated blood neutrophil count 2020-04-22 05:40:00* Test Item Value Reference Range Interpretation Comments Neutrophils # (Auto) (test code = 751-8) 5.4 2.1-6.9 [facility] HospitalBlood lymphocytes count (number/volume) 2020-04-22 05:40:00* Test Item Value Reference Range Interpretation Comments Lymphocytes # (Auto) (test code = 31822-2) 1.7 1.0-3.2 [facility] HospitalBlood monocytes automated count (number/volume)2020-04-22 05:40:00* Test Item Value Reference Range Interpretation Comments Monocytes # (Auto) (test code = 742-7) 1.1 0.2-0.8 [facility] HospitalAutomated blood eosinophil count 2020-04-22 05:40:00* Test Item Value Reference Range Interpretation Comments Eosinophils # (Auto) (test code = 711-2) 0.1 0.0-0.4 [facility] HospitalAutomated blood basophil count (count/volume)2020-04-22 05:40:00* Test Item Value Reference Range Interpretation Comments Basophils # (Auto) (test code = 704-7) 0.1 0.0-0.1 [facility] HospitalFluoroscopic procedure less than one hour ykvnmeok2625-12-90 05:40:00* Test Item Value Reference Range Interpretation Comments Absolute Immature Granulocyte (auto (osman t code = Absolute Immature Granulocyte (auto) 0.06 0-0.1 [facility] plasma sodium measurement (moles/volume)2020-04-22 05:10:00* Test Item Value Reference Range Interpretation Comments Sodium Level (test code = 2951-2) 135 136-145 [facility] plasma potassium measurement (moles/volume)2020-04-22 05:10:00* Test Item Value Reference Range Interpretation Comments Potassium Level (test code = 2823-3) 4.4 3.5-5.1 [facility] plasma chloride measurement (moles/volume)2020-04-22 05:10:00* Test Item Value Reference Range Interpretation Comments Chloride Level (test code = 2075-0) 95 98-107 [facility] or plasma carbon dioxide, total measurement (moles/volume)2020-04-22 05:10:00* Test Item Value Reference Range Interpretation Comments Carbon Dioxide Level (test code = 2028-9) 24 22-29 [facility] or plasma anion pvu5212-12-62 05:10:00* Test Item Value Reference Range Interpretation Comments Anion Gap (test code = 66701-9) 20.4 8-16 [facility] plasma urea nitrogen measurement (mass/volume)2020-04-22 05:10:00* Test Item Value Reference Range Interpretation Comments Blood Urea Nitrogen (test code = 3094-0) 38 7-26 [facility] plasma creatinine measurement (mass/volume)2020-04-22 05:10:00* Test Item Value Reference Range Interpretation Comments Creatinine (test code = 2160-0) 8.80 0.72-1.25 [facility] plasma urea nitrogen/creatinine mass ohmyu8416-73-77 05:10:00* Test Item Value Reference Range Interpretation Comments BUN/Creatinine Ratio (test code = 3097-3) 4 6-25 [facility] HospitalEstimated glomerular filtration rate (GFR) sxlsdjcwoiwqo2637-89-93 05:10:00* Test Item Value Reference Range Interpretation Comments Estimat Glomerular Filtration Rate (test code = 311047544) 6 >60 Ranges were taken from the National Kidney Disease Education Program and the [facility] Foundation Hospitalal Kidney Foundation literature.Reference ranges:60 or greater: Ldtcxa72-35 ( for 3 consecutive months): Chronic kidney disease 15 or less: Kidney failureEl Paso Children's HospitalGlucose wyopgkkciea9855-83-75 05:10:00* Test Item Value Reference Range Interpretation Comments Glucose Level (test code = JRM2023) 179 74-118 [facility] or plasma calcium measurement (mass/volume)2020-04-22 05:10:00* Test Item Value Reference Range Interpretation Comments Calcium Level (test code = 72624-6) 8.0 8.4-10.2 [facility] plasma total bilirubin measurement (mass/volume)2020-04-22 05:10:00* Test Item Value Reference Range Interpretation Comments Total Bilirubin (test code = 1975-2) 0.4 0.2-1.2 [facility] HospitalFluoroscopic procedure less than one hour usnbuspe0556-21-69 05:10:00* Test Item Value Reference Range Interpretation Comments Aspartate Amino Transf (AST/SGOT) (test code = Aspartate Amino Transf (AST/SGOT)) 9 5-34 [facility] or plasma alanine aminotransferase measurement (enzymatic activity/volume)2020-04-22 05:10:00* Test Item Value Reference Range Interpretation Comments Alanine Aminotransferase (ALT/SGPT) (test code = 1742-6) 11 0-55 [facility] or plasma protein measurement (mass/volume)2020-04-22 05:10:00* Test Item Value Reference Range Interpretation Comments Total Protein (test code = 2885-2) 7.1 6.5-8.1 [facility] plasma albumin measurement (mass/volume)2020-04-22 05:10:00* Test Item Value Reference Range Interpretation Comments Albumin (test code = 1751-7) 2.6 3.5-5.0 [facility] HospitalPlasma globulin measurement (mass/volume) 2020-04-22 05:10:00* Test Item Value Reference Range Interpretation Comments Globulin (test code = 62397-5) 4.5 2.3-3.5 [facility] plasma albumin/globulin mass sjapy1759-84-73 05:10:00* Test Item Value Reference Range Interpretation Comments Albumin/Globulin Ratio (test code = 1759-0) 0.6 0.8-2.0 [facility] or plasma alkaline phosphatase measurement (enzymatic activity/volume)2020-04-22 05:10:00* Test Item Value Reference Range Interpretation Comments Alkaline Phosphatase (test code = 6768-6) 149 40-150 [facility] Arlington[facility]um hepatitis B virus surface antibody assay by radioimmunoassay (units/volume)2020-04-21 17:30:00* Test Item Value Reference Range Interpretation Comments Hepatitis B Surface Antibody, Quant (test code = 5194-6) >1000.0 Immunity>9.9 Status of Immunity Anti-HBs Level Inconsistent with Immunity 0.0 - 9.9Consistent with Immunity >9.9[facility]aserum or plasma hepatitis B virus core antibody detection by mrhaqereubj3471-44-84 17:30:00* Test Item Value Reference Range Interpretation Comments Hepatitis B Core Total Antibody (test code = 96315-6) Negative Negative [facility] or plasma hepatitis B virus surface antigen detection by brcjxkqylob2398-22-30 17:30:00* Test Item Value Reference Range Interpretation Comments Hepatitis B Surface Antigen (test code = 5196-1) Negative Negat tadeo [facility] or plasma hepatitis B virus core IgM antibody detection by ungeqipsdcu2289-78-25 17:30:00* Test Item Value Reference Range Interpretation Comments Hepatitis B Core IgM Antibody (test code = 36802-6) Negative Ne gative Performed at: [address] [id number] Director: Mannie Gunter MD, Phone: [phone] [facility] procedure less than one hour ajypilsn2239-37-23 05:05:00* Test Item Value Reference Range Interpretation Comments Hemoglobin A1c Percent (test code = Hemoglobin A1c Percent) 13.6 4.0-7.0 [facility]2020-04-19 22:15:00 [facility] [address] [place] [address] Patient Name: ELIDIA ZAMORA MR #: [id number] : 1965 Age/Sex: 54/M Req #: [id number] Adm Physician: Ordered by: ROBBY RAM MD Report #: [id number] Location: ER Room/Bed: Procedure: [id number] DX/CHEST SINGLE (PORTABLE) Exam Date: 04/19/20 Exam [...] = Coronavirus (PCR)) NOT DETECTED NOTD ETECTED [employer] SARS-CoV-2 assay is a nucleic amplification test intended for the qualitative detection of RNA from SARS-CoV-2 from nasopharyngeal (CAMPGROUND CARETAKER) specimens. It is used under Emergency Use [...] for reprat testing oc clinically indicated.Tesing performed by:[facility] [address] [place] [id number], Robby Ordonez MD, PhD [facility] HospitalFluoroscopic procedure less than one hour atoalomf2681-33-27 20:50:00* Test Item Value Reference Range Interpretation Comments Lactic Acid Level (test code = Lactic Acid Level) 1.6 0.5- 2.0 [facility] plasma creatine kinase measurement (enzymatic activity/volume)2020-04-19 20:50:00* Test Item Value Reference Range Interpretation Comments Creatine Kinase (test code = 2157-6) 144 30-200 [facility] or plasma creatine kinase MB measurement (mass/volume)2020-04-19 20:50:00* Test Item Value Reference Range Interpretation Comments Creatine Kinase MB (test code = 26890-9) 2.20 0-5.0 [facility] HospitalTroponin I measurement by highly sensitive enzyme oejaxuhecgd6840-04-07 20:50:00* Test Item Value Reference Range Interpretation Comments Troponin I (test code = 06112-7) 0.051 0-0.300 [facility] HospitalBlood aqlnlwp5796-97-14 20:50:00* Test Item Value Reference Range Interpretation Comments Blood Culture (test code = 83732790) NO GROWTH AFTER 48 HOURS [facility]2D Echo W/Doppler(CW/PW/Color)2019-05-08 14:53:08Ejection FractionSLEH ECHO HEARTLAB SHANNA CPACSInterface, External Ris In - 05/08/2019 2:53 PM CDTTransthoracic Echocardiography Report (TTE) Demographics Patient Name ELIDIA ZAMORA Date of Study 05/06/2019 CLYDE KEITH Gender Male Visit Number [id number] Race Room Number OP Number Date of 1965 Referring Samantha Damon Physician Age 53 year(s) Secretary To [employer] President Chandni Reardon [facility] Interpreting Oscar Schuler MD Physician Fellow CHERYL [...] Velocity: 0.59 m/s Mean Gradient: 1.39 mmHg [facility] With Jsqsybl8908-88-42 14:49:43Ejection FractionSLEH ECHO HEARTLAB MKCKESSON CPACSInterface, External Ris In - 05/08/2019 2:49 PM CDTStress Echocardiography Report Demographics Patient Name ELIDIA ZAMORA Date of Study 05/06/2019 CLYDE KEITH Gender Male Visit Number [id number] Race Room Number OP Number Date of 1965 Referring Samantha Damon Physician Age 53 year(s) Secretary To The Vice President Chandni Reardon RDCS Interpreting Oscar Schuler MD [...] at a diagnostic level of stress. Signature [facility], [facility]BDOMINAL, [id number] 16:42:00Reason for Exam:-> esrd/kidney transplant evaluationFINAL REPORT [...] MDReport Verified Date/Time: 05/06/2019 16:42:41 Reading Location: [address] Radiology Reading Room abdomen cosfskzl8954-99-43 16:42:00Interface, External Ris In - 05/06/2019 4:44 [...] Nicholas Verified Date/Time: 05/06/2019 16:42:41 Reading Location: [address] Radiology Reading Room [facility], 2 [id number] 16:25:00Reason for Exam:->esrd/kidney transplant evaluationFINAL REPORT Chest, PA and lateral. History: End-stage renal disease. Comparison: None available. Discussion: The cardiomediastinal silhouette and pulmonary vasculature are within normal limits. The lungs are clear without evidence of consolidation or effusion. There are no acute osseous abnormalities. The soft tissues are unremarkable. IMPRESSION: No acute cardiopulmonary abnormality. Signed: Gema Nicholas Verified Date/Time: 05/06/2019 16:25:39 Reading Location: [address] Radiology Reading Room chest 2 [id number] 16:25:00Interface, External Ris In - 05/06/2019 4:27 [...] Nicholas Verified Date/Time: 05/06/2019 16:25:39 Reading Location: [address] Radiology Reading Room [facility]Blood typing, ekerlvjbu2356-40-49 14:38:00* Test Item Value Reference Range Interpretation Comments ABO/RH AUTOMATED (ALBERTO) (test code = 2260) O POSITIVE [facility] HospitalECG 12 [id number] 13:59:59Interface, External Ris In - 05/06/2019 2:00 PM CDTVentricular Rate 81 BPMAtrial Rate 81 BPMP-R Interval 186 msQRS Duration 82 msQ-T Interval 424 msQTC Calculation(Bazekam) 492 msP [place] 55 degreesR [place] 27 degreesT [place] 48 degreesNormal sinus rhythmProlonged QTAbnormal ECGNo previous ECGs availableConfirmed by Yvonne rice MD, Roberto ([id number]) on 05/06/2019 1:59:56 PMCH[facility] HospitalUS ABDOMEN QBHVGJQQ6454-21-44 08:50:00 [place] [address] Patient Name: ELIDIA ZAMORA MR #: [id number] : 1965 Age/Sex: 53/M Req #: [id number] Adm Physician: Ordered by: KOKO MERAZ MD Report #: [id number] Location: Room/Bed: Procedure: US/US A MONSE COMPLETE [...] COPY TO: KOKO MERAZ MD CYTOMEGALOVIRUS ANTIBODY, [id number] 17:15:00* Test Item Value Reference Range Interpretation Comments CYTOMEGALOVIRUS, IGG (ActiveReplayAKER) (test code = 3429) Positive Negat tadeo, Equivocal A CMV IgG Result Interpretation: </= 0.8 Al Negative 0.9-1.0 Al Equivocal > /=1.1 Al PositiveCYTOMEGALOVIRUS ANTIBODY, [id number] 17:15:00* Test Item Value Reference Range Interpretation Comments CYTOMEGALOVIRUS IGM ANTIBODY (ActiveReplayAKER) (test code = 3437) Neg ative Negative, Equivocal CMV IgM Result Interpretation: </= 0.8 Al Negative 0.9-1.0 Al Equivocal > /= 1.1 Al PositiveEBV ANTIBODY, [id number] 17:14:00* Test Item Value Reference Range Interpretation Comments LAKESHA FREDERICK VIRAL CAPSID ANTIGEN IGM (ActiveReplayAKER) (test code = 3418) Negative Negative, Equivocal Lakesha Frederick Viral Capsid Antigen IgM Result Interpretation: </= 0.8 Al Negative 0.9-1.0 Al Equivocal >/= 1.1 Al PositiveEBV ANTIBODY, [id number] 17:13:00* Test Item Value Reference Range Interpretation Comments LAKESHA FREDERICK VIRAL CAPSID ANTIGEN IGG (BEAKER) (test code = 3415) Positive Negative, Equivocal A Lakesha Frederick Viral Capsid Antigen IgG Result Interpretation: </= 0.8 Al Negative 0.9-1.0 Al Equivocal >/= 1.1 Al PositiveVARICELLA ZOSTER ANTIBODY, [id number] 17:07:00* Test Item Value Reference Range Interpretation Comments VARICELLA ZOSTER IGG (AL) (BEAKER) (test code = 3197) 1.9 VARICELLA ZOSTER RESULT INTERPRETATIONS: <=0.8 Al Nonreactive: Presumed non-immune to VZV 0.9-1.0 Al Equivocal >=1.1 Al Reactive: Presumed immune to VZVHEPATITIS B SURFACE [id number] 16:36:00 * Test Item Value Reference Range Interpretation Comments HEPATITIS B SURFACE ANTIBODY (BEAKER) (test code = 647) 9.4 mIU/mL <8.0 H HEPATITIS B SURFACE [id number] 16:28:00* Test Item Value Reference Range Interpretation Comments HEPATITIS B SURFACE ANTIGEN (2) (BEAKER) (test code = 2585) Nonreactive Nonreactive HEPATITIS B CORE ANTIBODY, [id number] 16:28:00* Test Item Value Reference Range Interpretation Comments HEPATITIS B CORE IGM ANTIBODY (BEAKER) (test code = 645) Non reactive Nonreactive HEPATITIS C [id number] 16:28:00* Test Item Value Reference Range Interpretation Comments HEPATITIS C ANTIBODY (BEAKER) (test code = 367) Nonreactive Nonrea ctive HIV-1 ANTIGEN WITH HIV-1/2 [id number] 16:28:00* Test Item Value Reference Range Interpretation Comments HIV-1 ANTIGEN WITH HIV 1\\T\\2 ANTIBODY (2) (BEAKER) (te st code = 2586) Nonreactive Nonreactive HEMOGLOBIN [id number] 16:04:00* Test Item Value Reference Range Interpretation Comments HEMOGLOBIN A1C (BEAKER) (test code = 368) 7.3 % 4.3-6.1 H [id number] 14:28:00* Test Item Value Reference Range Interpretation Comments RPR SCREEN (BEAKER) (test code = 420) Nonreactive Nonreactive PTH, [id number] 14:23:00* Test Item Value Reference Range Interpretation Comments PARATHYROID HORMONE INTACT (BEAKER) (test code = 577) 399.4 pg/mL 8.5-72.5 H COMPREHENSIVE METABOLIC [id number] 14:21:00* Test Item Value Reference Range Interpretation [...] IS NOT APPLICABLE FOR DIALYSIS PATIENTS. URIC [id number] 14:20:00* Test Item Value Reference Range Interpretation Comments URIC ACID (BEAKER) (test code = 773) 6.2 mg/dL 2.6-7.2 [id number] 14:20:00* Test Item Value Reference Range Interpretation Comments PHOSPHORUS (BEAKER) (test code = 604) 6.4 mg/dL 2.3-4.7 H LIPID [id number] 14:20:00* Test Item Value Reference Range Interpretation [...] = 635) 228 U/L 125-2 20 H PT/[id number] 13:57:00* Test Item Value Reference Range Interpretation [...] for patie nts wiht mechanical heart valves.PROTHROMBIN TIME/[id number] 13:56:00* Test Item Value Reference Range Interpretation [...] mechanical heart valves.CBC W/PLT COUNT & AUTO [id number] 13:45:00* Test Item Value Reference Range Interpretation [...] (test code = 2801) 1 % 0-1 [id number] 13:46:00 RUN DATE: 01/30/19 [facility] PAGE 1 RUN TIME: 1346 Specimen Inqui ry RUN USER: INTERFACE PATIENT: ELIDIA ZAMORA JR ACCT #: [id number] LOC: [place] U #: [id number] AGE/SX: 53/M ROOM: RE01/28/19REG DR: Koko Meraz MD : [birth year] BED: DIS: STATUS: [facility] [facility]: SPEC #: [id number] RECD: 01/29/19 STATUS: FLY GONZALEZ #: [id number] SAKSHI: 01/28/19 DR: Koko Meraz MD ENTERED: 01/29/19 SP TYPE: COLON OTHR DR: James Archer MD ORDERED: GROSS COPIES TO: James Archer MD [address] [place] [address] Koko Meraz MD [address] [address] PROCEDURES: GROSS (01/30/19) TI SSUES: 1. ASCENDING [...] CONTINUED ON NEXT PAGE RUN DATE: 01/30/19 [facility] PAGE 2 RUN TIME: 1346 Specimen Inquiry RUN USER: INTERFACE SPEC #: [id number] PATIENT: ELIDIA ZAMORA JR #[id number] (Continued)-- FINAL DIAGNOSIS (Continued) [phone] MACROSCOPIC The first specimen is received in [...] submitted as (3). GROSS PE RFORMED AT [facility] [address] [place] [address] (p)[phone] MICROSCOPIC All of the stains, including any controls performed, stain appropriately. MICROSCOPIC PERFORMED AT [facility] [address] [place] [address] (p)[phone] PERFO RMING SITE Diagnosis performed at: [facility] [address] [facility] [place] [address] Signed SIGNATURE ON FILE Shayla Mendoza MD 01/30/19 1346 END OF REPORT [id number] 13:16:00* Test Item Value Reference Range Interpretation Comments GLUBED (test code = GLUBED) 140 mg/dL 74-106 H Performed by certified flash welding machine operator at [facility] [id number] 13:15:00* Test Item Value Reference Range Interpretation Comments POTASSIUM (test code = K) 4.5 mmol/L 3.5-5.1 N BASIC METABOLIC [id number] 13:24:00* Test Item Value Reference Range Interpretation [...] CA) 8.5 mg/dL 8.5-10.1 N BASIC METABOLIC [id number] 13:16:00* Test Item Value Reference Range Interpretation [...] code = CA) mg/dL 8.5-10.1 CBC W/AUTO [id number] 12:49:00* Test Item Value Reference Range Interpretation [...] NRBC#) 0.00 K/mm3 0.0-0.1 N Stool Occult [id number] 16:40:00* Test Item Value Reference Range Interpretation Comments Stool Occult Blood (test code = 2335-8) POSITIVE NEGATIVE H [facility] Hospital[facility] Ntkrsfg4844-33-25 16:31:00* Test Item Value Reference Range Interpretation Comments Bedside Glucose (test code = 54792-9) 106 70-120 Meter ID: [id number] [facility] HospitalCreatine Kinase MB 2018-12-31 13:57:00* Test Item Value Reference Range Interpretation Comments Creatine Kinase MB (test code = 75504-4) 2.00 0-5.0 [facility] HospitalTroponin [id number] 13:57:00* Test Item Value Reference Range Interpretation Comments Troponin I (test code = EJV4958) 0.033 0-0.300 [facility]MD [facility] at Arlingtonodium Ntduj8403-21-95 13:53:00* Test Item Value Reference Range Interpretation Comments Sodium Level (test code = 2951-2) 132 136-145 L [facility] HospitalPotassium Ujudl0117-01-78 13:53:00* Test Item Value Reference Range Interpretation Comments Potassium Level (test code = 2823-3) 6.4 3.5-5.1 HH Results repeated and called to heidi bowman at 1352 on 12/31/18 by Foreign kellogg Read back and verified.NO HEMOLYSISEl [facility]'s Hospital Chloride Kfkyk8783-84-86 13:53:00* Test Item Value Reference Range Interpretation Comments Chloride Level (test code = 2075-0) 94 98-107 L [facility] HospitalCarbon Dioxide Zjrec8357-20-91 13:53:00* Test Item Value Reference Range Interpretation Comments Carbon Dioxide Level (test code = 2028-9) 27 22-29 [facility] HospitalAnion [id number] 13:53:00* Test Item Value Reference Range Interpretation Comments Anion Gap (test code = 06837-1) 17.4 8-16 H [facility] HospitalBlood Urea Aaasqpmh0943-65-93 13:53:00* Test Item Value Reference Range Interpretation Comments Blood Urea Nitrogen (test code = 3094-0) 44 7-26 H [facility] HospitalCreatinine2019-04-09 13:53:00* Test Item Value Reference Range Interpretation Comments Creatinine (test code = 2160-0) 10.85 0.72-1.25 H [facility] HospitalBUN/Creatinine Ftjke6793-55-95 13:53:00* Test Item Value Reference Range Interpretation Comments BUN/Creatinine Ratio (test code = 3097-3) 4 6-25 L [facility] HospitalEstimat Glomerular Filtration Rate 2018-12-31 13:53:00* Test Item Value Reference Range Interpretation Comments Estimat Glomerular Filtration Rate (test code = 520957840) 5 >60 L Ranges were taken from the National Kidney Disease Education Program and the [facility] Kidney Foundation literature.Reference ranges:60 or greater: Cdultu29-44 ( for 3 consecutive months): Chronic kidney disease 15 or less: Kidney failureCHI St. Lukes - Patients Medical CenterGlucose Suwyr2401-55-47 13:53:00* Test Item Value Reference Range Interpretation Comments Glucose Level (test code = BJM9352) 171 74-118 H [facility] HospitalCalcium Jrxub6131-37-46 13:53:00* Test Item Value Reference Range Interpretation Comments Calcium Level (test code = 43552-8) 9.6 8.4-10.2 [facility] HospitalTotal Kinurosvv9250-81-84 13:53:00* Test Item Value Reference Range Interpretation Comments Total Bilirubin (test code = 1975-2) 0.7 0.2-1.2 [facility] HospitalAspartate Amino Transf (AST/SGOT) 2018-12-31 13:53:00* Test Item Value Reference Range Interpretation Comments Aspartate Amino Transf (AST/SGOT) (test code = Aspartate Amino Transf (AST/SGOT)) 16 5-34 [facility] HospitalAlanine Aminotransferase (ALT/SGPT) 2018-12-31 13:53:00* Test Item Value Reference Range Interpretation Comments Alanine Aminotransferase (ALT/SGPT) (test code = 1742-6) 28 0-55 [facility] HospitalTotal Rzxymhp1033-41-04 13:53:00* Test Item Value Reference Range Interpretation Comments Total Protein (test code = 2885-2) 9.1 6.5-8.1 H [facility] HospitalAlbumin2019-04-09 13:53:00* Test Item Value Reference Range Interpretation Comments Albumin (test code = 1751-7) 3.9 3.5-5.0 [facility] HospitalGlobulin2019-04-09 13:53:00* Test Item Value Reference Range Interpretation Comments Globulin (test code = 61552-0) 5.2 2.3-3.5 H [facility] HospitalAlbumin/Globulin Bnvte0747-01-54 13:53:00 * Test Item Value Reference Range Interpretation Comments Albumin/Globulin Ratio (test code = 1759-0) 0.8 0.8-2.0 [facility] HospitalAlkaline Gutaqvfbnch5711-43-80 13:53:00* Test Item Value Reference Range Interpretation Comments Alkaline Phosphatase (test code = 6768-6) 130 40-150 [facility] HospitalCreatine Fhrycd1291-16-58 13:53:00* Test Item Value Reference Range Interpretation Comments Creatine Kinase (test code = 2157-6) 157 30-200 [facility] HospitalLactic Acid Udhuz2430-51-25 13:42:00* Test Item Value Reference Range Interpretation Comments Lactic Acid Level (test code = Lactic Acid Level) 13.2 4.5- 19.8 [facility] HospitalWhite Blood Rhdsp9115-28-48 13:26:00* Test Item Value Reference Range Interpretation Comments White Blood Count (test code = 6690-2) 12.87 4.8-10.8 H [facility] HospitalRed Blood Dvbud0583-25-34 13:26:00* Test Item Value Reference Range Interpretation Comments Red Blood Count (test code = 789-8) 4.55 4.3-5.7 [facility] HospitalHemoglobin2019-04-09 13:26:00* Test Item Value Reference Range Interpretation Comments Hemoglobin (test code = 81442-4) 13.1 14.0-18.0 L [facility] HospitalHematocrit2019-04-09 13:26:00* Test Item Value Reference Range Interpretation Comments Hematocrit (test code = 4544-3) 41.0 38.2-49.6 [facility] HospitalMean Corpuscular Igvaso9331-95-58 13:26:00* Test Item Value Reference Range Interpretation Comments Mean Corpuscular Volume (test code = 787-2) 90.1 81-99 [facility] HospitalMean Corpuscular Jniydmjnaz2152-87-71 13:26:00* Test Item Value Reference Range Interpretation Comments Mean Corpuscular Hemoglobin (test code = 785-6) 28.8 28-32 [facility] HospitalMean Corpuscular Hemoglobin Concent 2018-12-31 13:26:00* Test Item Value Reference Range Interpretation Comments Mean Corpuscular Hemoglobin Concent (test code = 786-4) 32.0 31-35 [facility] HospitalRed Cell Distribution Fsqox6039-57-14 13:26:00* Test Item Value Reference Range Interpretation Comments Red Cell Distribution Width (test code = 73666-8) 14.3 11.7 -14.4 [facility] HospitalPlatelet Nzhyv2473-57-04 13:26:00* Test Item Value Reference Range Interpretation Comments Platelet Count (test code = 777-3) 306 140-360 [facility] HospitalNeutrophils (%) (Auto)2018-12-31 13:26:00 * Test Item Value Reference Range Interpretation Comments Neutrophils (%) (Auto) (test code = 99464-8) 74.7 38.7-80.0 [facility] HospitalLymphocytes (%) (Auto)2018-12-31 13:26:00 * Test Item Value Reference Range Interpretation Comments Lymphocytes (%) (Auto) (test code = 736-9) 12.6 18.0-39.1 L [facility] HospitalMonocytes (%) (Auto)2018-12-31 13:26:00* Test Item Value Reference Range Interpretation Comments Monocytes (%) (Auto) (test code = 5905-5) 8.2 4.4-11.3 [facility] HospitalEosinophils (%) (Auto)2018-12-31 13:26:00 * Test Item Value Reference Range Interpretation Comments Eosinophils (%) (Auto) (test code = 713-8) 1.6 0.0-6.0 [facility] HospitalBasophils (%) (Auto)2018-12-31 13:26:00* Test Item Value Reference Range Interpretation Comments Basophils (%) (Auto) (test code = 706-2) 1.1 0.0-1.0 H [facility] HospitalIM GRANULOCYTES %2018-12-31 13:26:00* Test Item Value Reference Range Interpretation Comments IM GRANULOCYTES % (test code = IM GRANULOCYTES %) 1.8 0.0- 1.0 H [facility] HospitalNeutrophils # (Auto)2018-12-31 13:26:00* Test Item Value Reference Range Interpretation Comments Neutrophils # (Auto) (test code = 751-8) 9.6 2.1-6.9 H [facility] HospitalLymphocytes # (Auto)2018-12-31 13:26:00* Test Item Value Reference Range Interpretation Comments Lymphocytes # (Auto) (test code = 76189-7) 1.6 1.0-3.2 [facility] HospitalMonocytes # (Auto)2018-12-31 13:26:00* Test Item Value Reference Range Interpretation Comments Monocytes # (Auto) (test code = 742-7) 1.1 0.2-0.8 H [facility] HospitalEosinophils # (Auto)2018-12-31 13:26:00* Test Item Value Reference Range Interpretation Comments Eosinophils # (Auto) (test code = 711-2) 0.2 0.0-0.4 [facility] HospitalBasophils # (Auto)2018-12-31 13:26:00* Test Item Value Reference Range Interpretation Comments Basophils # (Auto) (test code = 704-7) 0.1 0.0-0.1 [facility] HospitalAbsolute Immature Granulocyte (auto 2018-12-31 13:26:00* Test Item Value Reference Range Interpretation Comments Absolute Immature Granulocyte (auto (osman t code = Absolute Immature Granulocyte (auto) 0.23 0-0.1 H [facility] HospitalGLUBED2019-02-05 07:50:00* Test Item Value Reference Range Interpretation Comments GLUBED (test code = GLUBED) 157 mg/dL 74-106 H Performed by certified flash welding machine operator at [facility] LBWLJA1717-75-92 07:50:00* Test Item Value Reference Range Interpretation Comments GLUBED (test code = GLUBED) 126 mg/dL 74-106 H Performed by certified flash welding machine operator at [facility] KBEBMR9526-44-12 07:50:00* Test Item Value Reference Range Interpretation Comments GLUBED (test code = GLUBED) 128 mg/dL 74-106 H Performed by certified flash welding machine operator at [facility] GASTRIC,AHNYMI5442-81-76 16:41:00 RUN DATE: 09/19/18 [facility] PAGE 1 RUN TIME: 1641 Specimen Inqui ry RUN USER: INTERFACE PATIENT: ELIDIA ZAMORA JR ACCT #: V [id number] LOC: EFRAÍN U #: [id number] AGE/SX: 53/M ROOM: RE09/12/[facility] DR: Dano Pelayo : 67 BED: DIS: STATUS: [facility] [place]LOC: SPEC #: [id number] RECD: 09/13/18 STATUS: FLY REQ #: [id number] SAKSHI: 09/12/18 [facility] DR: Dano Pelayo MD ENTERED: 09/13/18 SP TYPE: GASTRIC BX OTHR DR: Jyotsna Marte MD ORDERED: GROSS COPIES TO: Dano Pelayo MD [address], [address] [place] [address] Jyotsna Marte MD [address] [place], [place] [address] MARKERS: INTRADEPARTME NTAL CONSULT PROCEDURES: GROSS (09/19/18-1507) [...] ON NEXT P AGE RUN DATE: 09/19/18 [facility] PAGE 2 RUN TIME: 1641 Specimen Inquiry RUN USER: INTERFACE SPEC #: [id number] PATIENT: ELIDIA ZAMORA #[id number] (Continued) COMM ENT (Continued) Intradepartmental consultation: HEDY [...] NEGATIVE FOR DYSPLASIA AND MALIGNANCY RRB/gm D [phone] MACROSCOPIC The first specimen is received in [...] CONTINUED ON NEXT PAGE RUN DATE: 09/19/18 [facility] PAGE 3 RUN TIME: 1641 Specimen Inquiry RUN USER: INTERFACE SPEC #: [id number]: [id number] PATIENT: ELIDIA ZAMORA #[id number] (Continued ) MACROSCOPIC (Continued) measuring up to [...] B, base of polyp en face and player services representative cross sections; 4C, remainder of pedunculated polyp, mildly fragmented. GROSS PERFORMED AT [facility] [address] [place] [address] (p) [phone] MICROSCOPIC MICROSCOPIC PERFORMED AT [facility] All of the stains, including any controls performed, stain appropriately . [facility] [address] [place] [address] (B) PERFORMING SITE Processed at: [place] [facility] RAUL [address] [place] [address] [phone] Signed SIGNATURE ON FILE Halima Oates 09/19/18 1641 END OF REPORT Bedside Oqaffzo8025-80-04 01:29:00* Test Item Value Reference Range Interpretation Comments Bedside Glucose (test code = 55794-8) 172 70-120 H Meter ID: [id number] Hospital at Arlingtonodium Level 2017-12-20 20:53:00* Test Item Value Reference Range Interpretation Comments Sodium Level (test code = 2951-2) 130 136-145 L [facility] HospitalPotassium Ymqed7177-59-33 20:53:00* Test Item Value Reference Range Interpretation Comments Potassium Level (test code = 2823-3) 5.5 3.5-5.1 H NO HEMOLYSIS [facility] HospitalChloride Cenil8019-75-79 20:53:00* Test Item Value Reference Range Interpretation Comments Chloride Level (test code = 2075-0) 88 98-107 L [facility] HospitalCarbon Dioxide Sbszy3341-80-60 20:53:00* Test Item Value Reference Range Interpretation Comments Carbon Dioxide Level (test code = 2028-9) 31 22-29 H [facility] HospitalAnion Aqw9304-83-54 20:53:00* Test Item Value Reference Range Interpretation Comments Anion Gap (test code = 63277-2) 16.5 8-16 H [facility] HospitalBlood Urea Jiarmthr2012-16-06 20:53:00* Test Item Value Reference Range Interpretation Comments Blood Urea Nitrogen (test code = 3094-0) 49 7-26 H [facility] HospitalCreatinine2018-03-29 20:53:00* Test Item Value Reference Range Interpretation Comments Creatinine (test code = 2160-0) 8.33 0.72-1.25 H [facility] HospitalBUN/Creatinine Silqa3925-91-65 20:53:00* Test Item Value Reference Range Interpretation Comments BUN/Creatinine Ratio (test code = 3097-3) 6 - [facility] HospitalEstimat Glomerular Filtration Rate 2017-12-20 20:53:00* Test Item Value Reference Range Interpretation Comments Estimat Glomerular Filtration Rate (test code = 40501-7) 7 >60 L Ranges were taken from the National Kidney Disease Education Program and the [facility] Kidney Foundation literature.Reference ranges:60 or greater: Bvzrdg23-32 ( for 3 consecutive months): Chronic kidney disease 15 or less: Kidney failureEl Paso Children's HospitalGlucose Yblyl8527-66-18 20:53:00* Test Item Value Reference Range Interpretation Comments Glucose Level (test code = LYA8853) 628 74-118 Results called to CADENCE MARIE at 2050 on 12/20/17 by OSCAR PALOMO. RB OK.[facility] HospitalCalcium Svkas5299-09-30 20:53:00* Test Item Value Reference Range Interpretation Comments Calcium Level (test code = 92222-5) 9.4 8.4-10.2 [facility] HospitalTotal Wuefyvmek5879-10-92 20:53:00* Test Item Value Reference Range Interpretation Comments Total Bilirubin (test code = 1975-2) 0.3 0.2-1.2 [facility] HospitalAspartate Amino Transf (AST/SGOT) 2017-12-20 20:53:00* Test Item Value Reference Range Interpretation Comments Aspartate Amino Transf (AST/SGOT) (test code = Aspartate Amino Transf (AST/SGOT)) 13 5-34 [facility] HospitalAlanine Aminotransferase (ALT/SGPT) 2017-12-20 20:53:00* Test Item Value Reference Range Interpretation Comments Alanine Aminotransferase (ALT/SGPT) (test code = 1742-6) 14 0-55 [facility] HospitalTotal Aemwxvh0414-18-94 20:53:00* Test Item Value Reference Range Interpretation Comments Total Protein (test code = 2885-2) 7.6 6.5-8.1 [facility] HospitalAlbumin2018-03-29 20:53:00* Test Item Value Reference Range Interpretation Comments Albumin (test code = 1751-7) 3.0 3.5-5.0 L [facility] HospitalGlobulin2018-03-29 20:53:00* Test Item Value Reference Range Interpretation Comments Globulin (test code = 21713-3) 4.6 2.3-3.5 H [facility] HospitalAlbumin/Globulin Fmxyk8268-14-44 20:53:00 * Test Item Value Reference Range Interpretation Comments Albumin/Globulin Ratio (test code = 1759-0) 0.7 0.8-2.0 L [facility] HospitalAlkaline Oizgxbmhfgo6398-63-12 20:53:00* Test Item Value Reference Range Interpretation Comments Alkaline Phosphatase (test code = 6768-6) 211 40-150 H [facility] HospitalUrine HWF9486-08-99 20:49:00* Test Item Value Reference Range Interpretation Comments Urine WBC (test code = 5821-4) 6-10 0-5 H [facility] HospitalUrine EGB6870-68-21 20:49:00* Test Item Value Reference Range Interpretation Comments Urine RBC (test code = 44392-9) NONE 0-5 [facility] HospitalUrine Rpcaeudj5976-46-15 20:49:00* Test Item Value Reference Range Interpretation Comments Urine Bacteria (test code = 38035-0) MODERATE NONE H [facility] [facility] Epithelial [id number] 20:49:00 * Test Item Value Reference Range Interpretation Comments Urine Epithelial Cells (test code = 83120-5) FEW NONE [facility] HospitalWhite Blood [id number] 20:36:00* Test Item Value Reference Range Interpretation Comments White Blood Count (test code = 6690-2) 8.08 4.8-10.8 [facility] HospitalRed Blood Yiuyx3786-83-27 20:36:00* Test Item Value Reference Range Interpretation Comments Red Blood Count (test code = 789-8) 4.37 4.3-5.7 [facility] HospitalHemoglobin2018-03-29 20:36:00* Test Item Value Reference Range Interpretation Comments Hemoglobin (test code = 17415-0) 12.7 14.0-18.0 L [facility] HospitalHematocrit2018-03-29 20:36:00* Test Item Value Reference Range Interpretation Comments Hematocrit (test code = 4544-3) 36.6 38.2-49.6 L [facility] HospitalMean Corpuscular Ntsere1457-67-04 20:36:00* Test Item Value Reference Range Interpretation Comments Mean Corpuscular Volume (test code = 787-2) 83.8 81-99 [facility] HospitalMean Corpuscular Apsaysryus1099-33-55 20:36:00* Test Item Value Reference Range Interpretation Comments Mean Corpuscular Hemoglobin (test code = 785-6) 29.1 28-32 [facility] HospitalMean Corpuscular Hemoglobin Concent 2017-12-20 20:36:00* Test Item Value Reference Range Interpretation Comments Mean Corpuscular Hemoglobin Concent (test code = 786-4) 34.7 31-35 [facility] HospitalRed Cell Distribution Aywzi7845-53-10 20:36:00* Test Item Value Reference Range Interpretation Comments Red Cell Distribution Width (test code = 08615-2) 12.7 11.7 -14.4 [facility] HospitalPlatelet [id number] 20:36:00* Test Item Value Reference Range Interpretation Comments Platelet Count (test code = 777-3) 239 140-360 [facility] HospitalNeutrophils (%) (Auto)2017-12-20 20:36:00 * Test Item Value Reference Range Interpretation Comments Neutrophils (%) (Auto) (test code = 29218-0) 65.4 38.7-80.0 [facility] HospitalLymphocytes (%) (Auto)2017-12-20 20:36:00 * Test Item Value Reference Range Interpretation Comments Lymphocytes (%) (Auto) (test code = 736-9) 22.0 18.0-39.1 [facility] HospitalMonocytes (%) (Auto)2017-12-20 20:36:00* Test Item Value Reference Range Interpretation Comments Monocytes (%) (Auto) (test code = 5905-5) 7.2 4.4-11.3 [facility] HospitalEosinophils (%) (Auto)2017-12-20 20:36:00 * Test Item Value Reference Range Interpretation Comments Eosinophils (%) (Auto) (test code = 713-8) 3.3 0.0-6.0 [facility] HospitalBasophils (%) (Auto)2017-12-20 20:36:00* Test Item Value Reference Range Interpretation Comments Basophils (%) (Auto) (test code = 706-2) 1.0 0.0-1.0 [facility] HospitalIM GRANULOCYTES %2017-12-20 20:36:00* Test Item Value Reference Range Interpretation Comments IM GRANULOCYTES % (test code = IM GRANULOCYTES %) 1.1 0.0- 1.0 H [facility] HospitalNeutrophils # (Auto)2017-12-20 20:36:00* Test Item Value Reference Range Interpretation Comments Neutrophils # (Auto) (test code = 751-8) 5.3 2.1-6.9 [facility] HospitalLymphocytes # (Auto)2017-12-20 20:36:00* Test Item Value Reference Range Interpretation Comments Lymphocytes # (Auto) (test code = 27517-2) 1.8 1.0-3.2 [facility] HospitalMonocytes # (Auto)2017-12-20 20:36:00* Test Item Value Reference Range Interpretation Comments Monocytes # (Auto) (test code = 742-7) 0.6 0.2-0.8 [facility] HospitalEosinophils # (Auto)2017-12-20 20:36:00* Test Item Value Reference Range Interpretation Comments Eosinophils # (Auto) (test code = 711-2) 0.3 0.0-0.4 [facility] HospitalBasophils # (Auto)2017-12-20 20:36:00* Test Item Value Reference Range Interpretation Comments Basophils # (Auto) (test code = 704-7) 0.1 0.0-0.1 [facility] HospitalAbsolute Immature Granulocyte (auto 2017-12-20 20:36:00* Test Item Value Reference Range Interpretation Comments Absolute Immature Granulocyte (auto (osman t code = Absolute Immature Granulocyte (auto) 0.09 0-0.1 [facility] HospitalUrine [id number] 20:36:00* Test Item Value Reference Range Interpretation Comments Urine Color (test code = 5778-6) YELLOW YELLOW [facility] HospitalU[facility] Rusufrh8533-92-94 20:36:00* Test Item Value Reference Range Interpretation Comments Urine Clarity (test code = 38944-7) CLEAR CLEAR [facility] HospitalUrine Specific Smitije7580-37-51 20:36:00 * Test Item Value Reference Range Interpretation Comments Urine Specific Mayo (test code = 5811-5) 1.015 1.010-1.02 5 [facility] HospitalUrine [id number] 20:36:00* Test Item Value Reference Range Interpretation Comments Urine pH (test code = 77928-0) 8 5-7 H [facility] HospitalU[facility] Leukocyte Ayshakws3237-41-50 20:36:00* Test Item Value Reference Range Interpretation Comments Urine Leukocyte Esterase (test code = 5799-2) NEGATIVE NEGATIVE [facility] HospitalU[facility] Ssrhfwy3669-62-45 20:36:00* Test Item Value Reference Range Interpretation Comments Urine Nitrite (test code = 45680-3) NEGATIVE NEGATIVE [facility] HospitalU[facility] Obaatpj6380-86-78 20:36:00* Test Item Value Reference Range Interpretation Comments Urine Protein (test code = 5804-0) 3+ NEGATIVE H [facility] HospitalUrine Glucose (UA)2017-12-20 20:36:00* Test Item Value Reference Range Interpretation Comments Urine Glucose (UA) (test code = 2349-9) 3+ NEGATIVE H [facility] HospitalUrine Meaxwbv2176-00-99 20:36:00* Test Item Value Reference Range Interpretation Comments Urine Ketones (test code = 80454-7) NEGATIVE NEGATIVE [facility] HospitalU[facility] Yuyrmlrqwavj3825-87-38 20:36:00* Test Item Value Reference Range Interpretation Comments Urine Urobilinogen (test code = 38771-5) 0.2 0.2-1 [facility] HospitalU[facility] Tatcyawos7785-58-65 20:36:00* Test Item Value Reference Range Interpretation Comments Urine Bilirubin (test code = 1978-6) NEGATIVE NEGATIVE [facility] HospitalU[facility] Vpcqu0554-04-16 20:36:00* Test Item Value Reference Range Interpretation Comments Urine Blood (test code = 93007-1) 1+ NEGATIVE H [facility] HospitalCreatine Fafdab6462-87-80 10:10:00* Test Item Value Reference Range Interpretation Comments Creatine Kinase (test code = 2157-6) 179 30-200 [facility] HospitalCreatine Kinase [id number] 10:10:00* Test Item Value Reference Range Interpretation Comments Creatine Kinase MB (test code = 53488-6) 2.00 0.00-5.00 [facility] HospitalTroponin [id number] 10:10:00* Test Item Value Reference Range Interpretation Comments Troponin I (test code = RYL0736) 0.041 0-0.300 [facility] HospitalTriglycerides Gcffb2692-16-28 08:05:00* Test Item Value Reference Range Interpretation Comments Triglycerides Level (test code = 2571-8) 317 0-149 H [facility] HospitalCholesterol Pubrx2319-44-42 08:05:00* Test Item Value Reference Range Interpretation Comments Cholesterol Level (test code = 2093-3) 190 0-199 Less than 200 mg/dL Low Haeu460 - 239 mg/dL Borderline Zkmv298 m g/dl and greater High Risk [facility] HospitalLDL Tojdeiovwkz8216-01-60 08:05:00* Test Item Value Reference Range Interpretation Comments LDL Cholesterol (test code = 53351-3) 104 60-130 [facility] HospitalHDL Tbdjojeyksp1596-98-62 08:05:00* Test Item Value Reference Range Interpretation Comments HDL Cholesterol (test code = 2085-9) 23 40-60 L [facility] HospitalCholesterol/HDL Mhrmm3934-30-11 08:05:00 * Test Item Value Reference Range Interpretation Comments Cholesterol/HDL Ratio (test code = 9830-1) 8.3 3.9-4.7 H [facility] HospitalB-Type Natriuretic Qkqowns9439-73-91 20:01:00* Test Item Value Reference Range Interpretation Comments B-Type Natriuretic Peptide (test code = 69375-3) 149.6 0-100 H [facility] HospitalProthrombin [id number] 19:29:00* Test Item Value Reference Range Interpretation Comments Prothrombin Time (test code = 5902-2) 14.2 11.9-14.5 [facility] HospitalProthromb Time International Ratio 2017-07-07 19:29:00* Test Item Value Reference Range Interpretation Comments Prothromb Time International Ratio (test code = 6301-6) 1.05 Oral Anticoagulant Therapy INR Values:1. Low Intensity Therapy 1.5 - 2.02 . Moderate Intensity Therapy 2.0 - 3.03. High Intensity Therapy(1) 2.5 - 3. 54. High Intensity Therapy(2) 3.0 - 4.05. Panic Value INR > 5.0 [facility] HospitalActivated Partial Thromboplast Time 2017-07-07 19:29:00* Test Item Value Reference Range Interpretation Comments Activated Partial Thromboplast Time (test code = 04854-6) 30.3 23.8-35.5 [facility] [place] [address] Patient Name: ELIDIA ZAMORA MR #: [id number] : 1965 Age/Sex: 51/M Req #: [id number] Adm Physician: Ordered by: AGUILA RECIO MD Report #: [id number] Location: ER Room/Bed: Procedure: [id number] DX/CHEST SINGLE (PORTABLE) Exam Date: 07/07/17 Exam [...]
== END 2020-04-22 13:16 | disposition home or self-care (01) | DRG 871 ==
LOC: ER 20:45 → ERHOLD 22:53 → MED/SURG3 04-20 09:45
PROVIDERS: ADMIT Internal Medicine; ATTEND Internal Medicine
PROC: 5A1D70Z Performance of Urinary Filtration, Intermittent, Less than 6 Hours Per Day (ICD-10-PCS; principal; 2020-04-21)
DX: A41.9 Sepsis, unspecified organism (principal); N18.6 End stage renal disease; I12.0 Hypertensive chronic kidney disease with stage 5 chronic kidney disease or end stage renal disease; N25.81 Secondary hyperparathyroidism of renal origin; H60.92 Unspecified otitis externa, left ear; E11.22 Type 2 diabetes mellitus with diabetic chronic kidney disease; Z99.2 Dependence on renal dialysis; Z11.59 Encounter for screening for other viral diseases; K21.9 Gastro-esophageal reflux disease without esophagitis; E11.319 Type 2 diabetes mellitus with unspecified diabetic retinopathy without macular edema; I25.10 Atherosclerotic heart disease of native coronary artery without angina pectoris
CPT/HCPCS: 36415; 71045; 80053; 82550; 82553; 82948; 83036; 83605; 84484; 85025; 86704; 86705; 86706; 87040; 87340; 93005; 96372; 99284; J0360; J1815; J1817; J2270; J2405; J2543; J3370; J7050; U0002

== ENCOUNTER 2020-04-23 22:34 | Inpatient (IN) | payer MEDICARE, OTHER ==
[~2020-04-23] VITALS: Ht 170.2 cm; Wt 108.2 kg
[~2020-04-23 22:34] MED LIST changes: +AUGMENTIN 875-1 EACH PO; +CATAPRES0.2 MG PO; +GLIPIZIDE5 MG PO; +HYDRALAZINE HCL25 MG PO; +LEVEMIR FL100 UNIT/1 SC; +LISINOPRIL10 MG PO; +NEOMYCIN-POLYMY10 ML OT; +TYLENOL WITH C1 EACH PO
--- NOTE | 2020-04-23 23:04 | Emergency Department Note ---
History of Present Illnes History of Present Illness Chief Complaint: General Medicine Complaints History of Present Illness This is a 54 year old male PRESENTS TO THE ER C/O LT EAR ACHE RADIATING TO THROAT AND LT EYE; PT WAS D/C FROM THIS FACILITY YESTERDAY FOR OTITIS EXTERNA; PT STATES HE HAD DIALYSIS TODAY AND "I STILL FEEL THE SAME WHEN I CAME HERE"; PT STATES HE WAS PRESCRIBED GLIPIZIDE TODAY; PT ALSO REPORTS BP WAS ELEVATED; V/S/S; SPO2 100% RA; NAD NOTED AT THIS TIME; STATES HE CAME IN BECAUSE HE STILL FEELS LIKE HE DID WHEN HE WAS ADMITTED FOR THE OTITIS EXTERNAL 4 DAYS AGO. . Onset (how long ago): day(s) (15) Location: LEFT EAR Quality: PAIN, SWELLING, DRAINAGE, LEFT EAR Radiation: Reports other (LEFT THROAT, FACE) Severity: moderate Onset quality: gradual Duration (how long): day(s) (15) Timing of current episode: constant Progression: worsening Chronicity: chronic (FOR PAST 10 DAYS) Context: Reports recent illness (ADMITTED TO THIS HOSPITAL FOR OTITIS EXTERNA) Relieving factors: none Exacerbating factors: none Associated symptoms: Reports denies other symptoms Treatments prior to arrival: other (ANTIBIOTICS) Past Medical/Family History Physician Review I have reviewed the patient's past medical and family history. Any updates have been documented here. Past Medical History Recent Fever: No Clinical Suspicion of Infectio: No New/Unexplained Change in Ment: No Past Medical History: Hypertension, Diabetes, CAD, ESRD, Hemodyalisis Other Medical History: CATARACTS DIALYSIS M/W/F Past Surgical History: Cataract Removal Other Surgery: colonoscopy with polypectomy, Right AV fistula Social History Smoking Cessation: Never Smoker Alcohol Use: Occasional Any Illegal Drug Use: No Family History Family history of heart diseas: Yes Other family history HTN,DM Other Last Tetanus: UTD Review of Systems Review of Systems Constitutional: Reports no symptoms, Reports as per HPI EENTM: Reports no symptoms, Reports as per HPI Cardiovascular: Reports no symptoms Respiratory: Reports no symptoms Gastrointestinal: Reports no symptoms Genitourinary: Reports no symptoms Musculoskeletal: Reports no symptoms Integumentary: Reports no symptoms Neurological: Reports no symptoms Psychological: Reports no symptoms Endocrine: Reports no symptoms Hematological/Lymphatic: Reports no symptoms Physical Exam Related Data Allergies: Coded Allergies: No Known Allergies (Unverified , 12/31/18) Triage Vital Signs Vital Signs Date Time Temp Pulse Resp B/P (MAP) Pulse Ox O2 Delivery O2 Flow Rate FiO2 04/23/20 22:40 99.1 86 20 141/75 100 Room Air Vital signs reviewed: Yes Physical Exam CONSTITUTIONAL Constitutional: Present well-developed, Present well-nourished; Absent distressed HENT HENT: Present normocephalic, Present atraumatic, Present oropharynx c lear/moist, Present nose normal HENT L/R: Present left ext ear normal, Present right ext ear normal, Present other (DRAINAGE FROM LEFT EAR CANAL, MILD SWELING, APPEARS IMPROVED FROM WHEN I SAW HIM 4 DAYS AGO AND ADMITTED HIM) EYES Eyes: Reports PERRL, Reports conjunctivae normal NECK Neck: Present ROM normal PULMONARY Pulmonary: Present effort normal, Present breath sounds normal CARDIOVASCULAR Cardiovascular: Present regular rhythm, Present heart sounds normal, Present capillary refill normal, Present normal rate GASTROINTESTINAL Abdominal: Present soft, Present nontender, Present bowel sounds normal GENITOURINARY Genitourinary: Present exam deferred SKIN Skin: Present warm, Present dry MUSCULOSKELETAL Musculoskeletal: Present ROM normal NEUROLOGICAL Neurological: Present alert, Present oriented x 3, Present no gross motor or sensory deficits PSYCHOLOGICAL Psychological: Present mood/affect normal, Present judgement normal Results Laboratory Lab results reviewed: Yes Laboratory comments Laboratory Tests Test 04/23/20 20:50 White Blood Count 11.20 x10e3/uL (4.8-10.8) Red Blood Count 4.05 x10e6/uL (4.3-5.7) Hemoglobin 11.3 g/dL (14.0-18.0) Hematocrit 35.1 % (38.2-49.6) Mean Corpuscular Volume 86.7 fL (81-99) Mean Corpuscular Hemoglobin 27.9 pg (28-32) Mean Corpuscular Hemoglobin Concent 32.2 g/dL (31-35) Red Cell Distribution Width 12.7 % (11.7-14.4) Platelet Count 274 x10e3/uL (140-360) Neutrophils (%) (Auto) 82.5 % (38.7-80.0) Lymphocytes (%) (Auto) 8.6 % (18.0-39.1) Monocytes (%) (Auto) 6.6 % (4.4-11.3) Eosinophils (%) (Auto) 1.3 % (0.0-6.0) Basophils (%) (Auto) 0.5 % (0.0-1.0) Neutrophils # (Auto) 9.2 (2.1-6.9) Lymphocytes # (Auto) 1.0 (1.0-3.2) Monocytes # (Auto) 0.7 (0.2-0.8) Eosinophils # (Auto) 0.1 (0.0-0.4) Basophils # (Auto) 0.1 (0.0-0.1) Absolute Immature Granulocyte (auto 0.06 x10e3/uL (0-0.1) Sodium Level 133 mmol/L (136-145) Potassium Level 4.7 mmol/L (3.5-5.1) Chloride Level 92 mmol/L (98-107) Carbon Dioxide Level 25 mmol/L (22-29) Anion Gap 20.7 mmol/L (8-16) Blood Urea Nitrogen 26 mg/dL (7-26) Creatinine 7.64 mg/dL (0.72-1.25) Estimat Glomerular Filtration Rate 7 ML/MIN (60-) BUN/Creatinine Ratio 3 (6-25) Glucose Level 104 mg/dL (74-118) Calcium Level 8.2 mg/dL (8.4-10.2) Assessment & Plan Medical Decision Making [facility] PT WITH OTITIS EXTERNAL LEFT EAR, APPEARS IMPROVED SINCE ADMITTED 4 DAYS AGO, WAS DISHCARGED YESTERDAY, WAS SEEN BY DR THOMPSON ENT DURING ADMISSION CBC, BMP ORDERED TO EVAL FOR LEUKOCYTOSIS, ELECTROLYTE ABNORMALITY PT WBC BACK UP TO 11.7 , NOW WITH BACTERIAL SHIFT AGAIN, I SPOKE WITH DR PEREZ AND LEFT MESSAGE FOR DR BILL, Assessment & Plan Final Impression: (1) Failure of outpatient treatment (2) Otitis externa (3) ESRD (end stage renal disease) Depart Disposition: ADMITTED Last Vital Signs Date Time Temp Pulse Resp B/P (MAP) Pulse Ox O2 Delivery O2 Flow Rate FiO2 04/23/20 22:40 99.1 86 20 141/75 100 Room Air Home Meds Active Scripts Clonidine Hcl (CATAPRES) 0.2 Mg Tablet, 0.2 MG PO BID for 30 Days Prov:EDGARDO NEWMAN NP 04/22/20 Insulin Detemir (Levemir Flextouch) 100 Unit/1 Ml Insuln.pen, 40 UNITS SC HS for 30 Days, UNIT 2 Refills Prov:EDGARDO NEWMAN PM HEAD COOK 04/21/20 Acetaminophen With Codeine (TYLENOL WITH CODEINE #3 TABLET) 1 Each Tablet, 300 MG PO Q8HR PRN for pain, #21 TAB Prov:EDGARDO NEWMAN PM HEAD COOK 04/21/20 Neomycin/Polymyxin B Sulf/Hc (CIKCNURS-VYYQCLQWJ-HT EAR SOLN) 10 Ml Solution, 0 ML OT QID, #1 Prov:EDGARDO NEWMAN PM HEAD COOK 04/21/20 Amoxicillin/Potassium Clav (AUGMENTIN 875-125 TABLET) 1 Each Tablet, 1 EACH PO BID for 7 Days Prov:EDGARDO NEWMAN PM HEAD COOK 04/21/20 Glipizide (GLIPIZIDE) 5 Mg Tablet, 5 MG PO DAILY for 30 Days, TAB 2 Refills Prov:EDGARDO NEWMAN PM HEAD COOK 04/21/20 Pantoprazole Sod (PROTONIX) 40 Mg/Ml Susp, 40 MG PO ACB for 30 Days, 5 Refills Prov:DANA PEREZ MD 07/08/17 Amlodipine Besylate (NORVASC) 10 Mg Tab, 10 MG PO HS for 30 Days, TAB 5 Refills Prov:DANA PEREZ MD 07/08/17 Discontinued Reported Medications Insulin Detemir (LEVEMIR) 100 Unit/1 Ml Vial, 30 UNITS SQ HS 07/07/17 Discontinued Scripts Metoclopramide Hcl (METOCLOPRAMIDE HCL) 10 Mg Tablet, 10 MG PO BIDAC for 30 Days, 5 Refills Prov:DANA PEREZ MD 07/08/17 Glipizide (GLIPIZIDE XL) 2.5 Mg Tabcr, 2.5 MG PO DAILY@08 for 30 Days, 5 Refills Prov:DANA PEREZ MD 07/08/17 ROBBY RAM MD Apr 23, 2020 23:04
[2020-04-23 23:21] LABS: BASOPHILS # (AUTO) 0.1 (0.0-0.1); BASOPHILS % 0.5 % (0.0-1.0); EOSINOPHILS # (AUTO) 0.1 (0.0-0.4); EOSINOPHILS % 1.3 % (0.0-6.0); HEMATOCRIT 35.1 % (38.2-49.6); HEMOGLOBIN 11.3 g/dL (14.0-18.0); LYMPHOCYTES % 8.6 % (18.0-39.1); MEAN CORPUSCULAR HEMOGLOBIN 27.9 pg (28-32); MEAN CORPUSCULAR HGB CONC 32.2 g/dL (31-35); MEAN CORPUSCULAR VOLUME 86.7 fL (81-99); MONOCYTES # (AUTO) 0.7 (0.2-0.8); MONOCYTES % 6.6 % (4.4-11.3); NEUTROPHILS # (AUTO) 9.2 (2.1-6.9); NEUTROPHILS % 82.5 % (38.7-80.0); PLATELET COUNT 274 x10e3/uL (140-360); RED BLOOD COUNT 4.05 x10e6/uL (4.3-5.7); RED CELL DISTRIBUTION WIDTH 12.7 % (11.7-14.4)
--- OUTSIDE RECORDS SUMMARY | 2020-04-23 23:33 | XMS REPORT | Clinical Summary ---
Author Author [facility] Organization [facility] Address Unknown Phone Unavailable Care Team Providers Care Asset Specialist Name Role Phone PCP Unavailable Allergies Comments [...] II, MD ESRD (end stage renal disease) ([facility]); Pre-transplant evaluation for end stage renal disease; Maturity onset diabetes mellitus in young ([facility]); Essential hypertension, malignant; Anemia of chronic renal failure, unspecified CKD stage; Abnormal blood chemistry; Pre-operative cardiovascular examination; Pure hypercholesterolemia; Atherosclerosis of [place] coronary artery [place] heart without angina pectoris; Impending cerebrovascular accident ([facility]) 05/06/2019 Hospital Encounter Wilton Singh II, MD ESRD (end stage renal disease) ([facility]); Pre-transplant evaluation for end stage renal disease; Maturity onset diabetes mellitus in young ([facility]); Essential hypertension, malignant; Anemia of chronic renal failure, unspecified CKD stage; Abnormal blood chemistry; Pre-operative cardiovascular examination; Pure hypercholesterolemia; Atherosclerosis [place] coronary artery [place] heart without angina pectoris; Impending cerebrovascular accident ([facility]) 05/06/2019 Hospital Radiology Encounter Wilton Singh II, MD ESRD (end stage renal disease) ([facility]); Pre-transplant evaluation for end stage renal disease; Maturity onset diabetes mellitus in young ([facility]); Essential hypertension, malignant; Anemia of chronic renal failure, unspecified CKD stage; Abnormal blood chemistry; Pre-operative cardiovascular examination; Pure hypercholesterolemia; Atherosclerosis [place] coronary artery [place] heart without angina pectoris; Impending cerebrovascular accident ([facility]); Pre-transplant evaluation for chronic kidney disease 05/06/2019 Hospital Cardiology Encounter Wilton Singh II, MD ESRD (end stage renal disease) ([facility]); Pre-transplant evaluation for end stage renal disease; Maturity onset diabetes mellitus in young ([facility]); Essential hypertension, malignant; Anemia of chronic renal failure, unspecified CKD stage; Abnormal blood chemistry; Pre-operative cardiovascular examination; Pure hypercholesterolemia; Atherosclerosis [place] coronary artery [place] heart without angina pectoris; Impending cerebrovascular accident (HCC) 05/06/2019 Hospital Cardiology Encounter Wilton Singh II, MD ESRD (end stage renal disease) ([facility]); Pre-transplant evaluation for end stage renal disease; Maturity onset diabetes mellitus in young (HCC); Essential hypertension, malignant; Anemia of chronic renal failure, unspecified CKD stage; Abnormal blood chemistry; Pre-operative cardiovascular examination; Pure hypercholesterolemia; Atherosclerosis [place] coronary artery [place] heart without angina pectoris; Impending cerebrovascular accident (HCC) 05/06/2019 Orders Only Lab Wilton Singh II, MD 05/06/2019 Outside Orders after 04/23/2019 Family History Medical History Relation Name Comments [...] sta ge renal 4:12 PM CDT disease) ([facility]) Pre-transplant evaluation for end stage renal disease Maturity onset diabetes mellitus in young ([facility]) Essential hypertension, malignant Anemia of chronic renal failure, unspecified CKD stage Abnormal blood chemistry Pre-operative cardiovascular examination Pure hypercholesterolemia Atherosclerosis of [place] coronary artery of [place] heart without angina pectoris Impending cerebrovascular accident ([facility]) US ABDOMEN COMPLETE Routine 05/06/2019 ESRD (end stage renal 4:02 PM CDT disease) ([facility]) Pre-transplant evaluation for end stage renal disease Maturity onset diabetes mellitus in young ([facility]) Essential hypertension, malignant Anemia of chronic renal failure, unspecified CKD stage Abnormal blood chemistry Pre-operative cardiovascular examination Pure hypercholesterolemia Atherosclerosis of [place] coronary artery [place] heart without angina pectoris Impending cerebrovascular accident ([facility]) STRESS ECHO Routine 05/06/2019 ESRD (end stage renal 2:14 PM CDT disease) ([facility]) Pre-transplant evaluation for end stage renal disease Maturity onset diabetes mellitus in young ([facility]) Essential hypertension, malignant Anemia of chronic renal failure, unspecified CKD stage Abnormal blood chemistry Pre-operative cardiovascular examination Pure hypercholesterolemia Atherosclerosis of [place] coronary artery of [place] heart without angina pectoris Impending cerebrovascular accident ([facility]) 2D ECHO W/ DOPPLER Routine 05/06/2019 ESRD (end s tage renal (CW/PW/COLOR) 1:33 PM CDT disease) ([facility]) Pre-transplant evaluation for end stage renal disease Maturity onset diabetes mellitus in young ([facility]) Essential hypertension, malignant Anemia of chronic renal failure, unspecified CKD stage Abnormal blood chemistry Pre-operative cardiovascular examination Pure hypercholesterolemia Atherosclerosis of [place] coronary artery of [place] heart without angina pectoris Impending cerebrovascular accident ([facility]) ECG 12-LEAD Routine 05/06/2019 ESRD (end stage renal 12:47 PM CDT disease) ([facility]) Pre-transplant evaluation for end stage renal disease Maturity onset diabetes mellitus in young (HCC) Essential hypertension, malignant Anemia of chronic renal failure, unspecified CKD stage Abnormal blood chemistry Pre-operative cardiovascular examination Pure hypercholesterolemia Atherosclerosis of [place] coronary artery of [place] heart without angina pectoris Impending cerebrovascular accident (HCC) BLOOD TYPING, AUTOMATED Routine 05/06/2019 ESRD ( end stage renal 12:37 PM CDT disease) (HCC) Pre-transplant evaluation for end stage renal disease Maturity onset diabetes mellitus in young (HCC) Essential hypertension, malignant Anemia of chronic renal failure, unspecified CKD stage Abnormal blood chemistry Pre-operative cardiovascular examination Pure hypercholesterolemia Atherosclerosis of [place] coronary artery of [place] heart without angina pectoris Impending cerebrovascular accident (HCC) after 04/23/2019 Results * ECHOCARDIOGRAM REPORT - SCAN (05/08/2019 [...] CDT) Specimen Narrative Performed At FINAL REPORT [facility] Chest, PA and lateral. History: End-stage renal disease. Comparison: None available. Discussion:The cardiomediastinal si lhouette and pulmonary vasculature are within normal limits. T he lungs are clear without evidence of consolidation or effusion. There are no acute osseous abnormalities. The soft tissues are unr emarkable. IMPRESSION: No acute cardiopulmonary abnormality. Signed: Gema Nicholas MD Report Verified Date/Time: 9 16:25:39 Reading [place] [address] [facility] Procedure Note Interface, External Ris [...] Report Verified Date/Time: 05/06/2019 16:25:39 Reading Location: [address] Radiology Reading Room Performing Organization Address City/State/Zipcode Ph one Number [facility] * US abdomen complete (05/06/2019 4:02 PM CDT) Specimen Narrative Performed At FINAL REPORT [facility] Ultrasound of the Abdomen, 05/06/2019. Clinical History:End-stage [...] Report Verified Date/Time: 9 16:42:41 Reading Location: [address] Radiol[facility] Reading Room Procedure Note [...] Report Verified Date/Time: 05/06/2019 16:42:41 Reading Location: [address] Radiology Reading Room Performing Organization Address City/State/Zipcode Ph one Number GE RIS * Stress Echo With Tracing (05/06/2019 2:14 PM CDT) Ejection Fraction [facility] Specimen Narrative Performed At Stress Echocardiography Report [facility] Demographics [facility] Patient NameELIDIA HART Date of Study05/06/2019 CLYDE Rizo Male Visit [id number] Race Room NumberOP Number Date of 1965Referring Samantha Damon Physician Age 53 year(s)Dump Operator Chandni Reardon [facility] Interpreting Oscar garcía MD Physician FellowCHERYL Alegria [...] 05/06/2019 CLYDE KEITH Gender Male Visit Number [id number] Race Room Number OP Number Date of 1965 Referring Samantha Damon Physician Age 53 year(s) Dump Operator Chandni Reardon RDCS Interpreting Oscar Schuler [...] Performing Organization Address City/State/Zipcode Ph one Number [facility] * 2D Echo W/Doppler(CW/PW/Color) (05/06/2019 1:33 PM CDT) Ejection Fraction [facility] Specimen Narrative Performed At Transthoracic Echocardiography Report (TTE) [facility] O [facility]ART[facility] Demographics [facility] Patient NameELIDIA HART Date of Study05/06/2019 CLYDE Rizo Male Visit [id number] Race Room NumberOP Number Date of 1965Referring Samantha Damon Physician Age 53 year(s)Dump Operator Chandni Reardon [facility] Interpreting Oscar garcía MD Physician Fellowll CHERYL [...] 05/06/2019 CLYDE KEITH Gender Male Visit Number [id number] Race Room Number OP Number Date of 1965 Referring Samantha Damon Physician Age 53 year(s) Dump Operator Chandni Reardon RDCS Interpreting Oscar Schuler [...] Mean Gradient: 1.39 mmHg Performing Organization Address [facility] [place] Ph one Number [facility]ART[facility] * ECG 12 lead (05/06/2019 12:47 PM CDT) Specimen Narrative Performed At Ventricular Rate 81 BPM GE MUSE Atrial Rate 81 BPM P-R Interval 186 ms QRS Duration 82 ms Q-T Interval 424 ms QTC Calculation(Bazett) 492 ms P [place] 55 degrees R [place] 27 degrees T [place] 48 degrees Normal sinus rhythm Prolonged QT Abnormal ECG No previous ECGs available Confirmed by MD Lema Roberto ([id number]) on 05/06/2019 1:59:56 PM Procedure Note Interface, External Ris In - 05/06/2019 2:00 PM CDT Ventricular Rate 81 BPM Atrial Rate 81 BPM P-R Interval 186 ms QRS Duration 82 ms Q-T Interval 424 ms QTC Calculation(Bazett) 492 ms P [place] 55 degrees R [place] 27 degrees T [place] 48 degrees Normal sinus rhythm Prolonged QT Abnormal ECG No previous ECGs available Confirmed by MD Lema Roberto ([id number]) on 05/06/2019 1:59:56 PM Performing Organization Address City/State/Zipcode Ph one Number NIKOLAS MEDLEY * Blood typing, automated (05/06/2019 12:37 PM CDT) ABO/RH AUTOMATED (BEAKER) O POSITIVE [facility] Specimen Blood Performing Organization Address City/State/Zipcode Ph one Number [facility] [address] [place] [address] [facility] after 04/23/2019 Insurance Payer Benefit Subscriber ID Type Phone Address Plan / Group MEDICARE MEDICARE A xxxxxxxxxxx Medicare B
--- OUTSIDE RECORDS SUMMARY | 2020-04-23 23:34 | XMS REPORT | Continuity of Care Document ---
Author Author [facility] t Organization [facility] Address [address] [place] [address] Phone Unavailable Care Team Providers [facility] Director Name Role Phone BERT DALTON MD [facility] PCP Ksenia RAM Attphys Unavailable Gisela Jimenez Attphys Unavailable Roverto Cruz Joseline Attphys Unavailable Ksenia Lubin Attphys Unavailable Kishore NELSON, Alka Attphys Unavailable Te NELSON, Ester Attphys Unavailable Nelson Locke MD Attphys Mary MERAZ Attphys Unavailable Nelson LOCKE Attphys Unavailable Sharonda RECIO Attphymary Unavailable Payers Payer Name Policy Type Policy Number Effective Date Expiration Date Mary baerce Medicare A & B [id number] 2016 00:00:00 [facility] MEDICAREMEDICARE A BxxxxxxxxxxxMedicare xxxxxxxxxxx [facility] Problems Condition Name Condition Details Condition [...] urine. He does not have potential donors. [facility] Hypertension Hypertension Disease Active 2019-02-25 00:00:00 Last Assessment & Plan: Blood pressure management per nephrology. [facility] Diabetes mellitus Diabetes mellitus Disease Active 2019-02-25 00:00:00 Overview: Type 2Last Assessment & Plan: Diabetes type 2. He will continue follow up with primary care for blood glucose management. [facility] Pre-transplant evaluation for chronic kidney disease P re-transplant evaluation for chronic kidney disease Disease Active 2019-02-25 00:00:00 Last Assessment & Plan: He is an acceptable candidate for kidney transplant pending a cardiac cath due to age and diabetes. [facility] Obesity Obesity Disease Active 2019-02-25 00:00:00 Last Assessment & Plan: Current BMI is 36. Though his body habitus appears smaller. He was encouraged to monitor his oral intake and to exercise as tolerated. [facility] Chest pain Chest pain Problem Active [facility] End-stage renal disease ESRD (end stage renal disease) Problem Active [facility] Hyperglycemia Hyperglycemia Problem Active [facility] Otitis externa Problem Active [facility] Fever Problem Active [facility] Failure of outpatient treatment Problem Active [facility] Allergies, Adverse Reactions, Alerts Allergy Name Allergy Type Status Severity Reaction(s) Onset Date Inacti ve Date Treating Clinician Comments Source adhesive tape DA Active MO 2018-10-02 00:00:00 [facility] Adhesive Tape Drug Allergy Active Rash 2018-10-02 00:00:00 Silk Tape Only. [facility] No Known Allergies DA Active U 2014-02-16 00:00:00 [facility] Family History Family Member Diagnosis Comments Start Date Stop Date Source Natural brother Blindness [facility] Natural brother Kidney failure [facility] Natural brother Peripheral vascular disease [facility] Natural brother Diabetes [facility] Natural father Diabetes [facility] Natural father Kidney failure [facility] Natural mother Diabetes [facility] Natural mother Peripheral vascular disease [facility] Family member Colon cancer [facility] Family member Heart disease [facility] Social History Social Habit Start Date Stop Date Quantity Comments Source History SDOH Alcohol Std Drinks [facility] History SDOH Alcohol Binge [facility] Sex Assigned At [facility] History SDOH Alcohol Frequency 2019-02-25 00:00:00 2019-02-25 00:00:0 0 1 [facility] Smoking Status Start Date Stop Date Source Never smoker [facility] Medications Ordered Medication Name Filled Medication Name Start Date Stop Da te Current Medication? Ordering Clinician Indication Dosage Frequency Signature (SIG) Comments Components Source Clonidine Hcl (Catapres) 0.2 Mg TABLET Clonidine Hcl (Catapr es) 0.2 Mg TABLET 2020-04-22 09:35:00 Yes .2 Twice A Day [facility] Insulin Detemir (Levemir Flextouch) 100 Unit/[address]PEN Insulin Detemir (Levemir Flextouch) 100 Unit/1 Ml INSULN.PEN 2020-04-21 08:34:[address] Yes [address] [facility] Acetaminophen With Codeine (Tylenol With Codeine #3 Ta blet) 1 Each TABLET Acetaminophen With Codeine (Tylenol With Codeine #3 Tablet) 1 Each TABLET 2020-04-21 08:33:00 Yes 300 Every 8 Hours as n eeded for Pain [facility] Amoxicillin/Potassium Clav (Augmentin 875-125 Tablet) 1 Each TABLET Amoxicillin/Potassium Clav (Augmentin 875-125 Tablet) 1 Each TABLET 2020-04-21 08:33:00 Yes 1 Twice A Day [facility] Glipizide Glipizide 2020-04-21 08:33:00 Yes 5 Daily [facility] Neomycin/Polymyxin B Sulf/Hc (Mdmpexfe-Pzptdjjym-Ex Ea r Soln) 10 Ml SOLUTION Neomycin/Polymyxin B Sulf/Hc (Dxxwhlgs-Lyttsaphu-Wr Ear Soln) 10 Ml SOLUTION 2020-04-21 08:33:00 Yes 0 Four Times Daily [facility] aspirin 81 MG EC tablet 2019-02-25 10:50:02 Yes 81mg QD Take 81 mg by mouth daily. [facility] metoprolol (LOPRESSOR) 25 MG tablet 2019-02-25 10:50:02 Yes 25mg QD Take 25 mg by mouth daily. [facility] sevelamer (RENVELA) 800 mg tablet 2019-02-25 10:50:02 Yes 2400mg Take 2,400 mg by mouth 3 (three) times daily with meals. [facility] sucroferric oxyhydroxide (VELPHORO) 500 mg Chew 2019-02-25 10:50 :02 Yes 500mg Q.[id number] Take 500 mg by mouth 3 (three) times daily. [facility] clopidogrel (PLAVIX) 75 mg tablet 2019-02-25 10:50:02 Yes 75mg QD Take 75 mg by mouth daily. [facility] dexlansoprazole 60 mg capsule 2019-02-25 10:50:02 Yes 60mg QD Take 60 mg by mouth daily. [facility] Pantoprazole Sod (Protonix) 40 Mg/Ml SUSP Pantoprazole Sod (Protonix) 40 Mg/Ml SUSP 2017-07-08 13:24:00 Yes 40 Before Breakfast [facility] Metoclopramide Hcl Metoclopramide Hcl 2017-07-08 13:24:00 2020-03-25 00:00:00 No 10 Twice Daily Before Meals [facility] Amlodipine Besylate (Norvasc) 10 Mg TAB Amlodipine Besylate (Norvasc) 10 Mg TAB 2017-07-08 13:23:00 Yes 10 Bedtime [facility] Glipizide (Glipizide Xl) 2.5 Mg TABCR Glipizide (Glipizide X l) 2.5 Mg TABCR 2017-07-08 13:23:00 2020-04-21 00:00:00 No 2.5 Daily @08 [facility] Insulin Detemir (Levemir) 100 Unit/1 Ml VIAL Insulin D etemir (Levemir) 100 Unit/1 Ml VIAL 2020-04-21 00:00:00 No 30 Bedtime [facility] Vital Signs Vital Name Observation Time Observation Value Comments Source Body Temperature 2020-04-22 11:32:00 99.8 [degF] [facility] Weight 2020-04-22 01:01:00 238.44 [lb_av] [facility] BMI (Body Mass Index) 2020-04-22 01:01:00 37.3 kg/m2 [facility] Systolic blood pressure 2019-05-06 14:50:00 136 mm[Hg] [facility] Diastolic blood pressure 2019-05-06 14:50:00 85 mm[Hg] [facility] Heart rate 2019-05-06 14:50:00 96 /min [facility] Respiratory rate 2019-05-06 14:50:00 18 /min [facility] Body height 2019-05-06 13:00:00 170.2 cm [facility] Body weight Measured 2019-05-06 13:00:00 104.327 kg [facility] BMI 2019-05-06 13:00:00 36.02 kg/m2 [facility] Procedures Procedure Date / Time Performed Performing Clinician [facility] e ECHOCARDIOGRAM REPORT - SCAN 2019-05-08 21:23:16 ProviderStephany lt Scanning [facility] PERIPHERAL VASCULAR REPORT - SCAN 2019-05-08 21:21:25 Provid er, Default Scanning [facility] TRANSFUSION SERVICE REPORT - SCAN 2019-05-07 18:04:28 Provid er, Default Scanning [facility] XR CHEST 2 VIEWS 2019-05-06 16:12:[address] [facility] US ABDOMEN COMPLETE 2019-05-06 16:02:00 Wilton Locke [facility] I [facility] STRESS ECHO 2019-05-06 14:14:07 Wilton Locke [facility] 2D ECHO W/ DOPPLER (CW/PW/COLOR) 2019-05-06 13:33:00 Wilton Locke [facility] ECG 12-LEAD 2019-05-06 12:47:01 Wilton Locke [facility] BLOOD TYPING, AUTOMATED 2019-05-06 12:37:00 Wilton Locke [facility] Plan of Care Planned Activity Planned Date Details Comments Source Future Scheduled Test 2020-05-25 00:00:00 INFLUENZA VACCINE (#1) [code = INFLUENZA VACCINE (#1)] [facility] Future Scheduled Test 2019-08-27 00:00:00 Hemoglobin A1c clarissa surement (procedure) [code = 52876066] [facility] Future Scheduled Test 2017-07-26 00:00:00 MEDICARE ANNUAL WE LLNESS (YEAR 2 or FIRST YEAR if no IPPE) [code = MEDICARE ANNUAL WELLNESS (YEAR 2 or FIRST YEAR if no IPPE)] [facility] Future Scheduled Test 2017-06-13 00:00:00 PNEUMOCOCCAL VACCI NE 2-64 YEARS AT RISK (2 of 3 - PCV13) [code = PNEUMOCOCCAL VACCINE 2-64 YEARS AT RISK (2 of 3 - PCV13)] [facility] Future Scheduled Test 1976 00:00:00 DIABETIC EYE EXAM [code = DIABETIC EYE EXAM] [facility] Future Scheduled Test 1976 00:00:00 Diabetic foot exam ination (regime/therapy) [code = 778996499] [facility] Future Scheduled Test 1976 00:00:00 Urine screening fo r protein (procedure) [code = 519096813] [facility] Future Scheduled Test 1966 00:00:00 Screening for elidia gnant neoplasm of colon (procedure) [code = 343824497] [facility] Instructions Instilling Ear Drops [facility] Instructions Otitis Externa - Adult [facility] Instructions Ear Pain - Adult [facility] Instructions Infection Control [facility] Encounters Start Date/Time End Date/Time Encounter Type Admission Type Attendi [facility] Care Department Encounter ID Source 2020-04-19 22:53:00 2020-04-22 13:16:00 Discharged Inpatient 1 ROBBY RAM [facility] [id number] [facility] 2018-12-31 11:43:00 2018-12-31 17:03:00 Departed Emergency Room [facility] [id number] [facility] 2017-12-20 17:53:00 2017-12-21 02:19:00 Departed Emergency Room [facility] [id number] [facility] 2017-07-07 20:46:00 2017-07-08 14:10:00 Discharged Inpatient (obs) ER AGUILA RECIO [facility] [id number] [facility] Results Test Description Test Time Test Comments Results Result Comments Source Capillary blood glucose measurement by glucometer (mas s/volume) 2020-04-22 10:38:00 Test Item Bedside Glucose (test code = 03317-1) 259 70-120 Meter ID: [id number] leukocytes automated count (number/volume)2020-04-22 05:40:00* Test Item Value Reference Range Interpretation Comments White Blood Count (test code = 6690-2) 8.46 4.8-10.8 [facility] automated count (number/volume)2020-04-22 05:40:00* Test Item Value Reference Range Interpretation Comments Red Blood Count (test code = 789-8) 3.77 4.3-5.7 [facility] hemoglobin measurement (moles/volume)2020-04-22 05:40:00* Test Item Value Reference Range Interpretation Comments Hemoglobin (test code = 65577-5) 10.7 14.0-18.0 [facility] CenterAutomated blood hematocrit (volume fraction)2020-04-22 05:40:00* Test Item Value Reference Range Interpretation Comments Hematocrit (test code = 4544-3) 33.4 38.2-49.6 [facility] Center[facility] erythrocyte mean corpuscular mebpcr5234-94-68 05:40:00* Test Item Value Reference Range Interpretation Comments Mean Corpuscular Volume (test code = 787-2) 88.6 81-99 [facility] CenterAutom[facility] erythrocyte mean corpuscular hemoglobin (mass per erythrocyte)2020-04-22 05:40:00* Test Item Value Reference Range Interpretation Comments Mean Corpuscular Hemoglobin (test code = 785-6) 28.4 28-32 [facility] CenterAutomated erythrocyte mean corpuscular hemoglobin concentration measurement (mass/volume)2020-04-22 05:40:00* Test Item Value Reference Range Interpretation Comments Mean Corpuscular Hemoglobin Concent (test code = 786-4) 32.0 31-35 [facility] CenterRDW TzkZz-Cve1495-62-30 05:40:00* Test Item Value Reference Range Interpretation Comments Red Cell Distribution Width (test code = 75513-2) 12.9 11.7 -14.4 [facility] CenterAutomated blood platelet count (count/volume)2020-04-22 05:40:00* Test Item Value Reference Range Interpretation Comments Platelet Count (test code = 777-3) 225 140-360 [facility] CenterAutunc health chathamed blood segmented neutrophil count as percentage of total mjewutnipa4895-53-62 05:40:00* Test Item Value Reference Range Interpretation Comments Neutrophils (%) (Auto) (test code = 83436-1) 63.8 38.7-80.0 [facility] CenterAutomated blood lymphocyte count as percentage ot total jvoadbtwgk6900-67-73 05:40:00* Test Item Value Reference Range Interpretation Comments Lymphocytes (%) (Auto) (test code = 736-9) 20.1 18.0-39.1 [facility] CenterAutomated blood monocyte count as percentage of total dmergspccn3223-96-88 05:40:00* Test Item Value Reference Range Interpretation Comments Monocytes (%) (Auto) (test code = 5905-5) 13.2 4.4-11.3 [facility] CenterAutomated blood eosinophil count as percentage of total asekzqcvsr8631-84-39 05:40:00* Test Item Value Reference Range Interpretation Comments Eosinophils (%) (Auto) (test code = 713-8) 1.3 0.0-6.0 [facility] CenterAutomated blood basophil count as percentage of total extpsivycg8723-56-06 05:40:00* Test Item Value Reference Range Interpretation Comments Basophils (%) (Auto) (test code = 706-2) 0.9 0.0-1.0 [facility] CenterFluoroscopic procedure less than one hour pamecmdk1313-42-47 05:40:00* Test Item Value Reference Range Interpretation Comments IM GRANULOCYTES % (test code = IM GRANULOCYTES %) 0.7 0.0- 1.0 [facility] CenterAutomated blood neutrophil count 2020-04-22 05:40:00* Test Item Value Reference Range Interpretation Comments Neutrophils # (Auto) (test code = 751-8) 5.4 2.1-6.9 [facility] CenterBlood lymphocytes count (number/volume) 2020-04-22 05:40:00* Test Item Value Reference Range Interpretation Comments Lymphocytes # (Auto) (test code = 77757-2) 1.7 1.0-3.2 [facility] CenterBlood monocytes automated count (number/volume)2020-04-22 05:40:00* Test Item Value Reference Range Interpretation Comments Monocytes # (Auto) (test code = 742-7) 1.1 0.2-0.8 [facility] CenterAutomated blood eosinophil count 2020-04-22 05:40:00* Test Item Value Reference Range Interpretation Comments Eosinophils # (Auto) (test code = 711-2) 0.1 0.0-0.4 [facility] CenterAutomated blood basophil count (count/volume)2020-04-22 05:40:00* Test Item Value Reference Range Interpretation Comments Basophils # (Auto) (test code = 704-7) 0.1 0.0-0.1 [facility] CenterFluoroscopic procedure less than one hour dmcbvqhr6133-62-39 05:40:00* Test Item Value Reference Range Interpretation Comments Absolute Immature Granulocyte (auto (osman t code = Absolute Immature Granulocyte (auto) 0.06 0-0.1 [facility] sodium measurement (moles/volume)2020-04-22 05:10:00* Test Item Value Reference Range Interpretation Comments Sodium Level (test code = 2951-2) 135 136-145 [facility] potassium measurement (moles/volume)2020-04-22 05:10:00* Test Item Value Reference Range Interpretation Comments Potassium Level (test code = 2823-3) 4.4 3.5-5.1 [facility] chloride measurement (moles/volume)2020-04-22 05:10:00* Test Item Value Reference Range Interpretation Comments Chloride Level (test code = 2075-0) 95 98-107 [facility] carbon dioxide, total measurement (moles/volume)2020-04-22 05:10:00* Test Item Value Reference Range Interpretation Comments Carbon Dioxide Level (test code = 2028-9) 24 22-29 [facility] plasma anion sxk4037-67-91 05:10:00* Test Item Value Reference Range Interpretation Comments Anion Gap (test code = 42822-1) 20.4 8-16 [facility] urea nitrogen measurement (mass/volume)2020-04-22 05:10:00* Test Item Value Reference Range Interpretation Comments Blood Urea Nitrogen (test code = 3094-0) 38 7-26 [facility] creatinine measurement (mass/volume)2020-04-22 05:10:00* Test Item Value Reference Range Interpretation Comments Creatinine (test code = 2160-0) 8.80 0.72-1.25 [facility] urea nitrogen/creatinine mass uzomy6543-70-27 05:10:00* Test Item Value Reference Range Interpretation Comments BUN/Creatinine Ratio (test code = 3097-3) 4 6-25 [facility] CenterEstimated glomerular filtration rate (GFR) oahqqdwnoxtsy0208-92-34 05:10:00* Test Item Value Reference Range Interpretation Comments Estimat Glomerular Filtration Rate (test code = 134846633) 6 >60 Ranges were taken from the National Kidney Disease Education Program and the [facility] Kidney Foundation literature.Reference ranges:60 or greater: Nvzxaq19-09 ( for 3 consecutive months): Chronic kidney disease 15 or less: Kidney failureMission Regional Medical CenterGlucose clmcvleagiz8234-64-57 05:10:00* Test Item Value Reference Range Interpretation Comments Glucose Level (test code = DZT3289) 179 74-118 [facility] plasma calcium measurement (mass/volume)2020-04-22 05:10:00* Test Item Value Reference Range Interpretation Comments Calcium Level (test code = 70957-9) 8.0 8.4-10.2 [facility] plasma total bilirubin measurement (mass/volume)2020-04-22 05:10:00* Test Item Value Reference Range Interpretation Comments Total Bilirubin (test code = 1975-2) 0.4 0.2-1.2 [facility] CenterFluoroscopic procedure less than one hour lcvebnfh6782-89-24 05:10:00* Test Item Value Reference Range Interpretation Comments Aspartate Amino Transf (AST/SGOT) (test code = Aspartate Amino Transf (AST/SGOT)) 9 5-34 [facility] plasma alanine aminotransferase measurement (enzymatic activity/volume)2020-04-22 05:10:00* Test Item Value Reference Range Interpretation Comments Alanine Aminotransferase (ALT/SGPT) (test code = 1742-6) 11 0-55 [facility] protein measurement (mass/volume)2020-04-22 05:10:00* Test Item Value Reference Range Interpretation Comments Total Protein (test code = 2885-2) 7.1 6.5-8.1 [facility] albumin measurement (mass/volume)2020-04-22 05:10:00* Test Item Value Reference Range Interpretation Comments Albumin (test code = 1751-7) 2.6 3.5-5.0 [facility] CenterPlasma globulin measurement (mass/volume) 2020-04-22 05:10:00* Test Item Value Reference Range Interpretation Comments Globulin (test code = 39088-8) 4.5 2.3-3.5 [facility] albumin/globulin mass xmxzw0150-17-10 05:10:00* Test Item Value Reference Range Interpretation Comments Albumin/Globulin Ratio (test code = 1759-0) 0.6 0.8-2.0 [facility] alkaline phosphatase measurement (enzymatic activity/volume)2020-04-22 05:10:00* Test Item Value Reference Range Interpretation Comments Alkaline Phosphatase (test code = 6768-6) 149 40-150 [facility] Hospitalerum hepatitis B virus surface antibody assay by radioimmunoassay (units/volume)2020-04-21 17:30:00* Test Item Value Reference Range Interpretation Comments Hepatitis B Surface Antibody, Quant (test code = 5194-6) >1000.0 Immunity>9.9 Status of Immunity Anti-HBs Level Inconsistent with Immunity 0.0 - 9.9Consistent with Immunity >9.9[facility] plasma hepatitis B virus core antibody detection by rhmywzhoiqr9956-01-96 17:30:00* Test Item Value Reference Range Interpretation Comments Hepatitis B Core Total Antibody (test code = 44304-5) Negative Negative [facility] or plasma hepatitis B virus surface antigen detection by tmzmcuggryb0002-41-76 17:30:00* Test Item Value Reference Range Interpretation Comments Hepatitis B Surface Antigen (test code = 5196-1) Negative Negat tadeo [facility]er[facility] or plasma hepatitis B virus core IgM antibody detection by kxopyjrqlsz4320-40-98 17:30:00* Test Item Value Reference Range Interpretation Comments Hepatitis B Core IgM Antibody (test code = 95190-3) Negative Ne gative Performed at: [address] [id number] Director: Mannie Gunter MD, Phone: [phone] [facility] HospitalFluoroscopic procedure less than one hour ehnuaofq4978-40-15 05:05:00* Test Item Value Reference Range Interpretation Comments Hemoglobin A1c Percent (test code = Hemoglobin A1c Percent) 13.6 4.0-7.0 [facility]LE ([facility])2020-04-19 22:15:00 [facility] [address] [place] [address] Patient Name: ELIDIA ZAMORA MR #: [id number] : 1965 Age/Sex: 54/M Req #: [id number] Adm Physician: Ordered by: ROBBY RAM MD Report #: [id number] Location: ER Room/Bed: Procedure: [id number] DX/CHEST SINGLE (PORTABLE) Exam Date: 04/19/20 Exam [...] = Coronavirus (PCR)) NOT DETECTED NOTD ETECTED [employer] Aptima SARS-CoV-2 assay is a nucleic amplification test intended for the qualitative detection of RNA from SARS-CoV-2 from nasopharyngeal (TRANSIT MIX OPERATOR) specimens. It is used under Emergency Use [...] for reprat testing oc clinically indicated.Tesing performed by:[facility] [id number] [place] [address] [id number], Robby Ordonez MD, PhD [facility] CenterFluoroscopic procedure less than one hour slfqdcnj3131-69-73 20:50:00* Test Item Value Reference Range Interpretation Comments Lactic Acid Level (test code = Lactic Acid Level) 1.6 0.5- 2.0 [facility] plasma creatine kinase measurement (enzymatic activity/volume)2020-04-19 20:50:00* Test Item Value Reference Range Interpretation Comments Creatine Kinase (test code = 2157-6) 144 30-200 [facility] plasma creatine kinase MB measurement (mass/volume)2020-04-19 20:50:00* Test Item Value Reference Range Interpretation Comments Creatine Kinase MB (test code = 43726-7) 2.20 0-5.0 [facility] CenterTroponin I measurement by highly sensitive enzyme yqpswzcndzy0902-54-61 20:50:00* Test Item Value Reference Range Interpretation Comments Troponin I (test code = 95632-9) 0.051 0-0.300 [facility] CenterBlood xeevaep7165-61-88 20:50:00* Test Item Value Reference Range Interpretation Comments Blood Culture (test code = 42940039) NO GROWTH AFTER 48 HOURS [facility]2D [facility] W/Doppler(CW/PW/Color)2019-05-08 14:53:08Ejection FractionSLEH ECHO HEARTLAB SHANNA CPACSInterface, External Ris In - 05/08/2019 2:53 PM CDTTransthoracic Echocardiography Report (TTE) Demographics Patient Name ELIDIA ZAMORA Date of Study 05/06/2019 CLYDE KEITH Gender Male Visit Number [id number] Race Room Number OP Number Date of 1965 Referring Samantha Damon Physician Age 53 year(s) [employer] Chandni Reardon [facility] Interpreting Oscar Schuler MD Physician Fellow CHERYL [...] Velocity: 0.59 m/s Mean Gradient: 1.39 [facility] Wvjqmls2306-30-21 14:49:43Ejection FractionSLEH ECHO HEARTLAB MKCKESSON CPACSInterface, External Ris In - 05/08/2019 2:49 PM CDTStress Echocardiography Report Demographics Patient Name ELIDIA ZAMORA Date of Study 05/06/2019 CLYDE KETIH Gender Male Visit Number [id number] Race Room Number OP Number Date of 1965 Referring Samantha Damon Physician Age 53 year(s) [employer] Chandni Reardon RDCS Interpreting Oscar Schuler MD [...] at a diagnostic level of stress. Signature [facility], ABDOMINAL, [id number] 16:42:00Reason for Exam:-> esrd/kidney transplant evaluationFINAL REPORT [...] MDReport Verified Date/Time: 05/06/2019 16:42:41 Reading Location: [address] Radiology Reading Room abdomen cowdeuwr8999-57-83 16:42:00Interface, External Ris In - 05/06/2019 4:44 [...] Nicholas Verified Date/Time: 05/06/2019 16:42:41 Reading Location: [address] Radiology Reading [facility], 2 [id number] 16:25:00Reason for Exam:->esrd/kidney transplant evaluationFINAL REPORT Chest, PA and lateral. History: End-stage renal disease. Comparison: None available. Discussion: The cardiomediastinal silhouette and pulmonary vasculature are within normal limits. The lungs are clear without evidence of consolidation or effusion. There are no acute osseous abnormalities. The soft tissues are unremarkable. IMPRESSION: No acute cardiopulmonary abnormality. Signed: Gema Nicholas Verified Date/Time: 05/06/2019 16:25:39 Reading Location: [address] Radiology Reading Room chest 2 [id number] 16:25:00Interface, External Ris In - 05/06/2019 4:27 [...] Nicholas Verified Date/Time: 05/06/2019 16:25:39 Reading Location: [address] Radiology Reading Room [facility] typing, phodggcie7880-83-24 14:38:00* Test Item Value Reference Range Interpretation Comments ABO/RH AUTOMATED (ALBERTO) (test code = 2260) O POSITIVE [facility] HospitalECG 12 zqfw1065-41-05 13:59:59Interface, External Ris In - 05/06/2019 2:00 PM CDTVentricular Rate 81 BPMAtrial Rate 81 BPMP-R Interval 186 msQRS Duration 82 msQ-T Interval 424 msQTC Calculation(Bazett) 492 msP [place] 55 degreesR [place] 27 degreesT [place] 48 degreesNormal sinus rhythmProlonged QTAbnormal ECGNo previous ECGs availableConfirmed by Yvonne rice MD, Roberto ([id number]) on 05/06/2019 1:59:56 PMCHI [facility] CenterUS ABDOMEN NEIIKOAA9369-91-60 08:50:00 [place] [address] Patient Name: ELIDIA ZAMORA MR #: [id number] : 1965 Age/Sex: 53/M Req #: [id number] Adm Physician: Ordered by: KOKO MERAZ MD Report #: [id number] Location: Room/Bed: Procedure: [id number] US/US A MONSE COMPLETE Exam Date: 02/27/19 [...] onically Signed By: KIMBERLEE AGUILAR MD on 02/27/19 0853 Transcribed By: STEPHEN on 0 02/27/19 0853 COPY TO: KOKO MERAZ MD CYTOMEGALOVIRUS ANTIBODY, [id number] 17:15:00* Test Item Value Reference Range Interpretation Comments CYTOMEGALOVIRUS, IGG (BEAKER) (test code = 3429) Positive Negat tadeo, Equivocal A CMV IgG Result Interpretation: </= 0.8 Al Negative 0.9-1.0 Al Equivocal > /=1.1 Al PositiveCYTOMEGALOVIRUS ANTIBODY, [id number] 17:15:00* Test Item Value Reference Range Interpretation Comments CYTOMEGALOVIRUS IGM ANTIBODY (BEAKER) (test code = 3437) Neg ative Negative, Equivocal CMV IgM Result Interpretation: </= 0.8 Al Negative 0.9-1.0 Al Equivocal > /= 1.1 Al PositiveEBV ANTIBODY, [id number] 17:14:00* Test Item Value Reference Range Interpretation Comments LAKESHA FREDERICK VIRAL CAPSID ANTIGEN IGM (BEAKER) (test code = 3418) Negative Negative, Equivocal Lakesha Frederick Viral Capsid Antigen IgM Result Interpretation: </= 0.8 Al Negative 0.9-1.0 Al Equivocal >/= 1.1 Al PositiveEBV ANTIBODY, [id number] 17:13:00* Test Item Value Reference Range Interpretation Comments LAKESHA FREDERICK VIRAL CAPSID ANTIGEN IGG (BEAKER) (test code = 3415) Positive Negative, Equivocal A Lakesha Frederick Viral Capsid Antigen IgG Result Interpretation: </= 0.8 Al Negative 0.9-1.0 Al Equivocal >/= 1.1 Al PositiveVARICELLA ZOSTER ANTIBODY, [id number] 17:07:00* Test Item Value Reference Range Interpretation Comments VARICELLA ZOSTER IGG (AL) (BEAKER) (test code = 3197) 1.9 VARICELLA ZOSTER RESULT INTERPRETATIONS: <=0.8 Al Nonreactive: Presumed non-immune to VZV 0.9-1.0 Al Equivocal >=1.1 Al Reactive: Presumed immune to VZVHEPATITIS B SURFACE [id number] 16:36:00 * Test Item Value Reference Range Interpretation Comments HEPATITIS B SURFACE ANTIBODY (BEAKER) (test code = 647) 9.4 mIU/mL <8.0 H HEPATITIS B SURFACE [id number] 16:28:00* Test Item Value Reference Range Interpretation Comments HEPATITIS B SURFACE ANTIGEN (2) (BEAKER) (test code = 2585) Nonreactive Nonreactive HEPATITIS B CORE ANTIBODY, [id number] 16:28:00* Test Item Value Reference Range Interpretation Comments HEPATITIS B CORE IGM ANTIBODY (BEAKER) (test code = 645) Non reactive Nonreactive HEPATITIS C [id number] 16:28:00* Test Item Value Reference Range Interpretation Comments HEPATITIS C ANTIBODY (BEAKER) (test code = 367) Nonreactive Nonrea ctive HIV-1 ANTIGEN WITH HIV-1/2 [id number] 16:28:00* Test Item Value Reference Range Interpretation Comments HIV-1 ANTIGEN WITH HIV 1\\T\\2 ANTIBODY (2) (BEAKER) (te st code = 2586) Nonreactive Nonreactive HEMOGLOBIN [id number] 16:04:00* Test Item Value Reference Range Interpretation Comments HEMOGLOBIN A1C (BEAKER) (test code = 368) 7.3 % 4.3-6.1 H [id number] 14:28:00* Test Item Value Reference Range Interpretation Comments RPR SCREEN (BEAKER) (test code = 420) Nonreactive Nonreactive PTH, [id number] 14:23:00* Test Item Value Reference Range Interpretation Comments PARATHYROID HORMONE INTACT (BEAKER) (test code = 577) 399.4 pg/mL 8.5-72.5 H COMPREHENSIVE METABOLIC [id number] 14:21:00* Test Item Value Reference Range Interpretation [...] IS NOT APPLICABLE FOR DIALYSIS PATIENTS. URIC [id number] 14:20:00* Test Item Value Reference Range Interpretation Comments URIC ACID (BEAKER) (test code = 773) 6.2 mg/dL 2.6-7.2 [id number] 14:20:00* Test Item Value Reference Range Interpretation Comments PHOSPHORUS (BEAKER) (test code = 604) 6.4 mg/dL 2.3-4.7 H LIPID [id number] 14:20:00* Test Item Value Reference Range Interpretation [...] = 635) 228 U/L 125-2 20 H PT/RADQ0019-90-20 13:57:00* Test Item Value Reference Range Interpretation [...] for patie nts wiht mechanical heart valves.PROTHROMBIN TIME/[id number] 13:56:00* Test Item Value Reference Range Interpretation [...] mechanical heart valves.CBC W/PLT COUNT & AUTO UFDSFZQKDMBR4372-74-99 13:45:00* Test Item Value Reference Range Interpretation [...] (test code = 2801) 1 % 0-1 [id number] 13:46:00 RUN DATE: 01/30/19 [facility] PAGE 1 RUN TIME: 1346 Specimen Inqui ry RUN USER: INTERFACE PATIENT: ELIDIA ZAMORA JR ACCT #: [id number] LOC: [place] U #: [id number] AGE/SX: 53/M ROOM: RE01/28/19REG DR: Koko Meraz MD : 67 BED: DIS: [place] [facility] [place] SPEC #: [id number] RECD: 01/29/19 STATUS: FLY GONZALEZ #: [id number] SAKSHI: 01/28/19 DR: Koko Meraz MD ENTERED: 01/29/19 SP TYPE: COLON OTHR DR: James Archer MD ORDERED: GROSS COPIES TO: James Archer MD [address] [place] [address] Koko Meraz MD [address] [address] PROCEDURES: GROSS (01/30/19) TI SSUES: 1. ASCENDING [...] CONTINUED ON NEXT PAGE RUN DATE: 01/30/19 [facility] PAGE 2 RUN TIME: 1346 Specimen Inquiry RUN USER: INTERFACE SPEC #: [id number] PATIENT: ELIDIA ZAMORA JR #[id number] (Continued)-- FINAL DIAGNOSIS (Continued) (4) [phone] MACROSCOPIC The first specimen is received in [...] submitted as (3). GROSS PE RFORMED AT [facility] [address] [place] [address] ([phone] MICROSCOPIC All of the stains, including any controls performed, stain appropriately. MICROSCOPIC PERFORMED AT [facility] [address] [place] [address] [phone])[phone] PERFO RMING SITE Diagnosis performed at: [facility] [address] [facility] [address] Signed SIGNATURE ON FILE Shayla Mendoza MD 01/30/19 1346 END OF REPORT [id number] 13:16:00* Test Item Value Reference Range Interpretation Comments GLUBED (test code = GLUBED) 140 mg/dL 74-106 H Performed by certified preparation operator at [facility] [id number] 13:15:00* Test Item Value Reference Range Interpretation Comments POTASSIUM (test code = K) 4.5 mmol/L 3.5-5.1 N BASIC METABOLIC [id number] 13:24:00* Test Item Value Reference Range Interpretation [...] CA) 8.5 mg/dL 8.5-10.1 N BASIC METABOLIC [id number] 13:16:00* Test Item Value Reference Range Interpretation [...] code = CA) mg/dL 8.5-10.1 CBC W/AUTO [id number] 12:49:00* Test Item Value Reference Range Interpretation [...] NRBC#) 0.00 K/mm3 0.0-0.1 N Stool Occult [id number] 16:40:00* Test Item Value Reference Range Interpretation Comments Stool Occult Blood (test code = 2335-8) POSITIVE NEGATIVE H [facility] CenterBedside Xrkvagy7916-60-47 16:31:00* Test Item Value Reference Range Interpretation Comments Bedside Glucose (test code = 52249-2) 106 70-120 Meter ID: [id number] Regional Medical CenterCreatine Kinase MB 2018-12-31 13:57:00* Test Item Value Reference Range Interpretation Comments Creatine Kinase MB (test code = 93865-1) 2.00 0-5.0 [facility] CenterTroponin [id number] 13:57:00* Test Item Value Reference Range Interpretation Comments Troponin I (test code = XEC9607) 0.033 0-0.300 [facility] Akqig1854-98-74 13:53:00* Test Item Value Reference Range Interpretation Comments Sodium Level (test code = 2951-2) 132 136-145 L [facility] CenterPotassium Pctio0101-59-43 13:53:00* Test Item Value Reference Range Interpretation Comments Potassium Level (test code = 2823-3) 6.4 3.5-5.1 Results repeated and called to heidi bowman at 1352 on 12/31/18 by Foreign kellogg Read back and verified.NO HEMOLYSISMission Regional Medical Center Chloride Xtbqx3091-88-27 13:53:00* Test Item Value Reference Range Interpretation Comments Chloride Level (test code = 2075-0) 94 98-107 L [facility] CenterCarbon Dioxide Mcgyu6591-37-06 13:53:00* Test Item Value Reference Range Interpretation Comments Carbon Dioxide Level (test code = 2028-9) 27 22-29 [facility] CenterAnion Bks7045-93-82 13:53:00* Test Item Value Reference Range Interpretation Comments Anion Gap (test code = 30911-8) 17.4 8-16 H [facility] CenterBlood Urea Sqlmokyg9432-76-92 13:53:00* Test Item Value Reference Range Interpretation Comments Blood Urea Nitrogen (test code = 3094-0) 44 7-26 H [facility] CenterCreatinine2019-04-09 13:53:00* Test Item Value Reference Range Interpretation Comments Creatinine (test code = 2160-0) 10.85 0.72-1.25 H [facility] CenterBUN/Creatinine Meqjp0815-00-17 13:53:00* Test Item Value Reference Range Interpretation Comments BUN/Creatinine Ratio (test code = 3097-3) 4 6-25 L [facility] CenterEstimat Glomerular Filtration Rate 2018-12-31 13:53:00* Test Item Value Reference Range Interpretation Comments Estimat Glomerular Filtration Rate (test code = 778710019) 5 >60 L Ranges were taken from the National Kidney Disease Education Program and the [facility] Kidney Foundation literature.Reference ranges:60 or greater: Yyfyod54-15 ( for 3 consecutive months): Chronic kidney disease 15 or less: Kidney failureMission Regional Medical CenterGlucose Gafuf0235-77-06 13:53:00* Test Item Value Reference Range Interpretation Comments Glucose Level (test code = IER6048) 171 74-118 H [facility] CenterCalcium Thulr6882-36-36 13:53:00* Test Item Value Reference Range Interpretation Comments Calcium Level (test code = 39773-6) 9.6 8.4-10.2 [facility] CenterTotal Pkfrfjons6929-67-28 13:53:00* Test Item Value Reference Range Interpretation Comments Total Bilirubin (test code = 1975-2) 0.7 0.2-1.2 [facility] CenterAspartate Amino Transf (AST/SGOT) 2018-12-31 13:53:00* Test Item Value Reference Range Interpretation Comments Aspartate Amino Transf (AST/SGOT) (test code = Aspartate Amino Transf (AST/SGOT)) 16 5-34 [facility] CenterAlanine Aminotransferase (ALT/SGPT) 2018-12-31 13:53:00* Test Item Value Reference Range Interpretation Comments Alanine Aminotransferase (ALT/SGPT) (test code = 1742-6) 28 0-55 [facility] CenterTotal Tosxmzr3041-62-18 13:53:00* Test Item Value Reference Range Interpretation Comments Total Protein (test code = 2885-2) 9.1 6.5-8.1 H [facility] CenterAlbumin2019-04-09 13:53:00* Test Item Value Reference Range Interpretation Comments Albumin (test code = 1751-7) 3.9 3.5-5.0 [facility] CenterGlobulin2019-04-09 13:53:00* Test Item Value Reference Range Interpretation Comments Globulin (test code = 48102-3) 5.2 2.3-3.5 H [facility] CenterAlbumin/Globulin Tshyq0420-74-31 13:53:00 * Test Item Value Reference Range Interpretation Comments Albumin/Globulin Ratio (test code = 1759-0) 0.8 0.8-2.0 [facility] CenterAlkaline Nadoyoywvsw7137-43-66 13:53:00* Test Item Value Reference Range Interpretation Comments Alkaline Phosphatase (test code = 6768-6) 130 40-150 [facility] CenterCreatine Mzfnsy9141-88-53 13:53:00* Test Item Value Reference Range Interpretation Comments Creatine Kinase (test code = 2157-6) 157 30-200 [facility] CenterLactic Acid Emxac4979-71-08 13:42:00* Test Item Value Reference Range Interpretation Comments Lactic Acid Level (test code = Lactic Acid Level) 13.2 4.5- 19.8 [facility] CenterWhite Blood Lwntk4574-11-39 13:26:00* Test Item Value Reference Range Interpretation Comments White Blood Count (test code = 6690-2) 12.87 4.8-10.8 H [facility] CenterRed Blood Ohoix5134-15-93 13:26:00* Test Item Value Reference Range Interpretation Comments Red Blood Count (test code = 789-8) 4.55 4.3-5.7 [facility] CenterHemoglobin2019-04-09 13:26:00* Test Item Value Reference Range Interpretation Comments Hemoglobin (test code = 09895-3) 13.1 14.0-18.0 L [facility] CenterHematocrit2019-04-09 13:26:00* Test Item Value Reference Range Interpretation Comments Hematocrit (test code = 4544-3) 41.0 38.2-49.6 [facility] CenterMean Corpuscular Wfjpih4436-36-53 13:26:00* Test Item Value Reference Range Interpretation Comments Mean Corpuscular Volume (test code = 787-2) 90.1 81-99 [facility] CenterMean Corpuscular Wclsqxqoey9492-10-69 13:26:00* Test Item Value Reference Range Interpretation Comments Mean Corpuscular Hemoglobin (test code = 785-6) 28.8 28-32 [facility] CenterMean Corpuscular Hemoglobin Concent 2018-12-31 13:26:00* Test Item Value Reference Range Interpretation Comments Mean Corpuscular Hemoglobin Concent (test code = 786-4) 32.0 31-35 [facility] CenterRed Cell Distribution Ivkfv2205-59-05 13:26:00* Test Item Value Reference Range Interpretation Comments Red Cell Distribution Width (test code = 32110-0) 14.3 11.7 -14.4 [facility] CenterPlatelet Bbugd7932-13-27 13:26:00* Test Item Value Reference Range Interpretation Comments Platelet Count (test code = 777-3) 306 140-360 [facility] CenterNeutrophils (%) (Auto)2018-12-31 13:26:00 * Test Item Value Reference Range Interpretation Comments Neutrophils (%) (Auto) (test code = 11463-6) 74.7 38.7-80.0 [facility] CenterLymphocytes (%) (Auto)2018-12-31 13:26:00 * Test Item Value Reference Range Interpretation Comments Lymphocytes (%) (Auto) (test code = 736-9) 12.6 18.0-39.1 L [facility] CenterMonocytes (%) (Auto)2018-12-31 13:26:00* Test Item Value Reference Range Interpretation Comments Monocytes (%) (Auto) (test code = 5905-5) 8.2 4.4-11.3 [facility] CenterEosinophils (%) (Auto)2018-12-31 13:26:00 * Test Item Value Reference Range Interpretation Comments Eosinophils (%) (Auto) (test code = 713-8) 1.6 0.0-6.0 [facility] CenterBasophils (%) (Auto)2018-12-31 13:26:00* Test Item Value Reference Range Interpretation Comments Basophils (%) (Auto) (test code = 706-2) 1.1 0.0-1.0 H [facility] CenterIM GRANULOCYTES %2018-12-31 13:26:00* Test Item Value Reference Range Interpretation Comments IM GRANULOCYTES % (test code = IM GRANULOCYTES %) 1.8 0.0- 1.0 H [facility] CenterNeutrophils # (Auto)2018-12-31 13:26:00* Test Item Value Reference Range Interpretation Comments Neutrophils # (Auto) (test code = 751-8) 9.6 2.1-6.9 H [facility] CenterLymphocytes # (Auto)2018-12-31 13:26:00* Test Item Value Reference Range Interpretation Comments Lymphocytes # (Auto) (test code = 37703-1) 1.6 1.0-3.2 [facility] CenterMonocytes # (Auto)2018-12-31 13:26:00* Test Item Value Reference Range Interpretation Comments Monocytes # (Auto) (test code = 742-7) 1.1 0.2-0.8 H [facility] CenterEosinophils # (Auto)2018-12-31 13:26:00* Test Item Value Reference Range Interpretation Comments Eosinophils # (Auto) (test code = 711-2) 0.2 0.0-0.4 [facility] CenterBasophils # (Auto)2018-12-31 13:26:00* Test Item Value Reference Range Interpretation Comments Basophils # (Auto) (test code = 704-7) 0.1 0.0-0.1 [facility] CenterAbsolute Immature Granulocyte (auto 2018-12-31 13:26:00* Test Item Value Reference Range Interpretation Comments Absolute Immature Granulocyte (auto (osman t code = Absolute Immature Granulocyte (auto) 0.23 0-0.1 H [facility] CenterGLUBED2019-02-05 07:50:00* Test Item Value Reference Range Interpretation Comments GLUBED (test code = GLUBED) 157 mg/dL 74-106 H Performed by certified preparation operator at [facility] POHANZ5400-37-53 07:50:00* Test Item Value Reference Range Interpretation Comments GLUBED (test code = GLUBED) 126 mg/dL 74-106 H Performed by certified preparation operator at [facility] YAGDMX4506-33-90 07:50:00* Test Item Value Reference Range Interpretation Comments GLUBED (test code = GLUBED) 128 mg/dL 74-106 H Performed by certified preparation operator at [facility] GASTRIC,FVEPAS2553-86-63 16:41:00 RUN DATE: 09/19/18 [facility] PAGE 1 RUN TIME: 1641 Specimen Inqui ry RUN USER: INTERFACE PATIENT: ELIDIA ZAMORA JR ACCT #: V [id number] LOC: EFRAÍN U #: [id number] AGE/SX: 53/M ROOM: RE09/12/18[facility] DR: Dano Pelayo : 67 BED: DIS: [place] [facility] [place]: SPEC #: [id number] RECD: 09/13/18 STATUS: FLY GONZALEZ #: [id number] SAKSHI: 09/12/[address] [facility] [address]: Dano Pelayo MD ENTERED: 09/13/18 SP TYPE: GASTRIC BX OTHR DR: Jyotsna Marte MD ORDERED: GROSS COPIES TO: Dano Pelayo MD [address], [address] [place] [address] Joytsna Marte MD [address] [place] [address] MARKERS: INTRADEPARTME NTAL CONSULT PROCEDURES: GROSS (09/19/18-1507) [...] ON NEXT P AGE RUN DATE: 09/19/18 [facility] PAGE 2 RUN TIME: 1641 Specimen Inquiry RUN USER: INTERFACE SPEC #: [id number] PATIENT: ELIDIA ZAMORA #[id number] (Continued) COMM ENT (Continued) Intradepartmental consultation: HEDY [...] NEGATIVE FOR DYSPLASIA AND MALIGNANCY RRB/gm D [phone] MACROSCOPIC The first specimen is received in [...] CONTINUED ON NEXT PAGE RUN DATE: 09/19/18 [facility] PAGE 3 RUN TIME: 1641 Specimen Inquiry RUN USER: INTERFACE SPEC #: [id number]: [id number] PATIENT: ELIDIA ZAMORAFLEX MOORE #[id number] (Continued ) MACROSCOPIC (Continued) measuring up to [...] B, base of polyp en face and hvac sales representative cross sections; 4C, remainder of pedunculated polyp, mildly fragmented. GROSS PERFORMED AT [facility] [address] [place] [address], [place] [address] (p) [phone] MICROSCOPIC MICROSCOPIC PERFORMED AT [facility] All of the stains, including any controls performed, stain appropriately . [facility] [address] [place] [address] (R) PERFORMING SITE Processed at: [facility] RAUL [address] [place] [address] [phone] Signed SIGNATURE ON FILE Halima Oates 09/19/18 1641 END OF REPORT Bedside Irjlinn0058-74-44 01:29:00* Test Item Value Reference Range Interpretation Comments Bedside Glucose (test code = 39586-7) 172 70-120 H Meter ID: [id number] Hospitalodium Level 2017-12-20 20:53:00* Test Item Value Reference Range Interpretation Comments Sodium Level (test code = 2951-2) 130 136-145 L [facility] CenterPotassium Hnlhz7266-45-60 20:53:00* Test Item Value Reference Range Interpretation Comments Potassium Level (test code = 2823-3) 5.5 3.5-5.1 H NO HEMOLYSIS [facility] CenterChloride Ktsve9717-27-53 20:53:00* Test Item Value Reference Range Interpretation Comments Chloride Level (test code = 2075-0) 88 98-107 L [facility] CenterCarbon Dioxide Bgxke5092-31-33 20:53:00* Test Item Value Reference Range Interpretation Comments Carbon Dioxide Level (test code = 2028-9) 31 22-29 H [facility] CenterAnion Uep9766-68-58 20:53:00* Test Item Value Reference Range Interpretation Comments Anion Gap (test code = 40525-7) 16.5 8-16 H [facility] CenterBlood Urea Zlggofil8034-79-46 20:53:00* Test Item Value Reference Range Interpretation Comments Blood Urea Nitrogen (test code = 3094-0) 49 7-26 H [facility] CenterCreatinine2018-03-29 20:53:00* Test Item Value Reference Range Interpretation Comments Creatinine (test code = 2160-0) 8.33 0.72-1.25 H [facility] CenterBUN/Creatinine Pwufr1684-25-48 20:53:00* Test Item Value Reference Range Interpretation Comments BUN/Creatinine Ratio (test code = 3097-3) 6 03-18 [facility] CenterEstimat Glomerular Filtration Rate 2017-12-20 20:53:00* Test Item Value Reference Range Interpretation Comments Estimat Glomerular Filtration Rate (test code = 30348-7) 7 >60 L Ranges were taken from the National Kidney Disease Education Program and the [facility] Kid[facility] Foundation literature.Reference ranges:60 or greater: Syrpfh76-72 ( for 3 consecutive months): Chronic kidney disease 15 or less: Kidney failureMission Regional Medical CenterGlucose Raiwn0564-36-19 20:53:00* Test Item Value Reference Range Interpretation Comments Glucose Level (test code = MSV9520) 628 74-118 Results called to CADENCE MARIE at 2050 on 12/20/17 by OSCAR PALOMO. RB [place].[facility] CenterCalcium Fuhvq5237-67-06 20:53:00* Test Item Value Reference Range Interpretation Comments Calcium Level (test code = 96994-2) 9.4 8.4-10.2 [facility] CenterTotal Fbkoyoaoh5168-91-97 20:53:00* Test Item Value Reference Range Interpretation Comments Total Bilirubin (test code = 1975-2) 0.3 0.2-1.2 [facility] Medical CenterAspartate Amino Transf (AST/SGOT) 2017-12-20 20:53:00* Test Item Value Reference Range Interpretation Comments Aspartate Amino Transf (AST/SGOT) (test code = Aspartate Amino Transf (AST/SGOT)) 13 5-34 [facility] CenterAlanine Aminotransferase (ALT/SGPT) 2017-12-20 20:53:00* Test Item Value Reference Range Interpretation Comments Alanine Aminotransferase (ALT/SGPT) (test code = 1742-6) 14 0-55 [facility] CenterTotal Zzhnehp1975-17-09 20:53:00* Test Item Value Reference Range Interpretation Comments Total Protein (test code = 2885-2) 7.6 6.5-8.1 [facility] CenterAlbumin2018-03-29 20:53:00* Test Item Value Reference Range Interpretation Comments Albumin (test code = 1751-7) 3.0 3.5-5.0 L [facility] CenterGlobulin2018-03-29 20:53:00* Test Item Value Reference Range Interpretation Comments Globulin (test code = 99820-1) 4.6 2.3-3.5 H [facility] CenterAlbumin/Globulin Ibqyt2351-44-82 20:53:00 * Test Item Value Reference Range Interpretation Comments Albumin/Globulin Ratio (test code = 1759-0) 0.7 0.8-2.0 L [facility] CenterAlkaline Azeuhqfvzqh6969-65-84 20:53:00* Test Item Value Reference Range Interpretation Comments Alkaline Phosphatase (test code = 6768-6) 211 40-150 H [facility] CenterUrine DSA4696-06-50 20:49:00* Test Item Value Reference Range Interpretation Comments Urine WBC (test code = 5821-4) 6-10 0-5 H [facility] [facility] [id number] 20:49:00* Test Item Value Reference Range Interpretation Comments Urine RBC (test code = 32614-0) NONE 0-5 [facility] Erdmywpa5350-80-54 20:49:00* Test Item Value Reference Range Interpretation Comments Urine Bacteria (test code = 87367-6) MODERATE NONE H [facility] Epithelial Ahphj7856-14-66 20:49:00 * Test Item Value Reference Range Interpretation Comments Urine Epithelial Cells (test code = 97121-1) FEW NONE [facility] Center[facility] Blood Wcjjt3239-44-96 20:36:00* Test Item Value Reference Range Interpretation Comments White Blood Count (test code = 6690-2) 8.08 4.8-10.8 [facility] Center[facility] Blood Yzuix2063-96-11 20:36:00* Test Item Value Reference Range Interpretation Comments Red Blood Count (test code = 789-8) 4.37 4.3-5.7 [facility] CenterHemoglobin2018-03-29 20:36:00* Test Item Value Reference Range Interpretation Comments Hemoglobin (test code = 36846-8) 12.7 14.0-18.0 L [facility] CenterHematocrit2018-03-29 20:36:00* Test Item Value Reference Range Interpretation Comments Hematocrit (test code = 4544-3) 36.6 38.2-49.6 L [facility] CenterMean Corpuscular Zucpyq9664-34-26 20:36:00* Test Item Value Reference Range Interpretation Comments Mean Corpuscular Volume (test code = 787-2) 83.8 81-99 [facility] CenterMean Corpuscular Vvnilswfyf9938-47-64 20:36:00* Test Item Value Reference Range Interpretation Comments Mean Corpuscular Hemoglobin (test code = 785-6) 29.1 28-32 [facility] CenterMean Corpuscular Hemoglobin Concent 2017-12-20 20:36:00* Test Item Value Reference Range Interpretation Comments Mean Corpuscular Hemoglobin Concent (test code = 786-4) 34.7 31-35 [facility] Center[facility] Cell Distribution Xihnf2686-68-29 20:36:00* Test Item Value Reference Range Interpretation Comments Red Cell Distribution Width (test code = 15909-7) 12.7 11.7 -14.4 [facility] CenterPlatelet Fwypv4641-22-21 20:36:00* Test Item Value Reference Range Interpretation Comments Platelet Count (test code = 777-3) 239 140-360 [facility] CenterNeutrophils (%) (Auto)2017-12-20 20:36:00 * Test Item Value Reference Range Interpretation Comments Neutrophils (%) (Auto) (test code = 87533-5) 65.4 38.7-80.0 [facility] CenterLymphocytes (%) (Auto)2017-12-20 20:36:00 * Test Item Value Reference Range Interpretation Comments Lymphocytes (%) (Auto) (test code = 736-9) 22.0 18.0-39.1 [facility] CenterMonocytes (%) (Auto)2017-12-20 20:36:00* Test Item Value Reference Range Interpretation Comments Monocytes (%) (Auto) (test code = 5905-5) 7.2 4.4-11.3 [facility] CenterEosinophils (%) (Auto)2017-12-20 20:36:00 * Test Item Value Reference Range Interpretation Comments Eosinophils (%) (Auto) (test code = 713-8) 3.3 0.0-6.0 [facility] CenterBasophils (%) (Auto)2017-12-20 20:36:00* Test Item Value Reference Range Interpretation Comments Basophils (%) (Auto) (test code = 706-2) 1.0 0.0-1.0 [facility] CenterIM GRANULOCYTES %2017-12-20 20:36:00* Test Item Value Reference Range Interpretation Comments IM GRANULOCYTES % (test code = IM GRANULOCYTES %) 1.1 0.0- 1.0 H [facility] CenterNeutrophils # (Auto)2017-12-20 20:36:00* Test Item Value Reference Range Interpretation Comments Neutrophils # (Auto) (test code = 751-8) 5.3 2.1-6.9 [facility] CenterLymphocytes # (Auto)2017-12-20 20:36:00* Test Item Value Reference Range Interpretation Comments Lymphocytes # (Auto) (test code = 39860-6) 1.8 1.0-3.2 [facility] CenterMonocytes # (Auto)2017-12-20 20:36:00* Test Item Value Reference Range Interpretation Comments Monocytes # (Auto) (test code = 742-7) 0.6 0.2-0.8 [facility] CenterEosinophils # (Auto)2017-12-20 20:36:00* Test Item Value Reference Range Interpretation Comments Eosinophils # (Auto) (test code = 711-2) 0.3 0.0-0.4 [facility] CenterBasophils # (Auto)2017-12-20 20:36:00* Test Item Value Reference Range Interpretation Comments Basophils # (Auto) (test code = 704-7) 0.1 0.0-0.1 [facility] CenterAbsolute Immature Granulocyte (auto 2017-12-20 20:36:00* Test Item Value Reference Range Interpretation Comments Absolute Immature Granulocyte (auto (osman t code = Absolute Immature Granulocyte (auto) 0.09 0-0.1 [facility] CenterUrine [id number] 20:36:00* Test Item Value Reference Range Interpretation Comments Urine Color (test code = 5778-6) YELLOW YELLOW [facility] CenterU[facility] Xnpkikm9711-05-47 20:36:00* Test Item Value Reference Range Interpretation Comments Urine Clarity (test code = 26852-4) CLEAR CLEAR [facility] CenterU[facility] Specific Vrgjawq3407-93-07 20:36:00 * Test Item Value Reference Range Interpretation Comments Urine Specific [place] (test code = 5811-5) 1.015 1.010-1.02 5 [facility] CenterU[facility] [id number] 20:36:00* Test Item Value Reference Range Interpretation Comments Urine pH (test code = 76916-8) 8 5-7 H [facility] Center[facility] Leukocyte Vdfqcnru9578-37-08 20:36:00* Test Item Value Reference Range Interpretation Comments Urine Leukocyte Esterase (test code = 5799-2) NEGATIVE NEGATIVE [facility] CenterU[facility] Knpgwtx8584-11-78 20:36:00* Test Item Value Reference Range Interpretation Comments Urine Nitrite (test code = 93508-8) NEGATIVE NEGATIVE [facility] CenterU[facility] Wvhsmqk2005-81-81 20:36:00* Test Item Value Reference Range Interpretation Comments Urine Protein (test code = 5804-0) 3+ NEGATIVE H [facility] CenterU[facility] Glucose (UA)2017-12-20 20:36:00* Test Item Value Reference Range Interpretation Comments Urine Glucose (UA) (test code = 2349-9) 3+ NEGATIVE H [facility] CenterUrine Azvuujo0201-12-12 20:36:00* Test Item Value Reference Range Interpretation Comments Urine Ketones (test code = 66793-6) NEGATIVE NEGATIVE [facility] CenterU[facility] Elxdalxdqttu3162-77-67 20:36:00* Test Item Value Reference Range Interpretation Comments Urine Urobilinogen (test code = 40326-1) 0.2 0.2-1 [facility] CenterU[facility] Sllnflvwq1536-67-86 20:36:00* Test Item Value Reference Range Interpretation Comments Urine Bilirubin (test code = 1978-6) NEGATIVE NEGATIVE [facility] CenterU[facility] Msomb7248-06-65 20:36:00* Test Item Value Reference Range Interpretation Comments Urine Blood (test code = 74486-5) 1+ NEGATIVE H [facility] CenterCreatine Ylruws8643-66-65 10:10:00* Test Item Value Reference Range Interpretation Comments Creatine Kinase (test code = 2157-6) 179 30-200 [facility] CenterCreatine Kinase [id number] 10:10:00* Test Item Value Reference Range Interpretation Comments Creatine Kinase MB (test code = 28322-6) 2.00 0.00-5.00 [facility] CenterTroponin [id number] 10:10:00* Test Item Value Reference Range Interpretation Comments Troponin I (test code = RXQ1233) 0.041 0-0.300 [facility] CenterTriglycerides Dvdzd5852-67-05 08:05:00* Test Item Value Reference Range Interpretation Comments Triglycerides Level (test code = 2571-8) 317 0-149 H [facility] CenterCholesterol Difoq4246-19-24 08:05:00* Test Item Value Reference Range Interpretation Comments Cholesterol Level (test code = 2093-3) 190 0-199 Less than 200 mg/dL Low Anki337 - 239 mg/dL Borderline Zpzb772 m g/dl and greater High Risk [facility] CenterLDL Uklsckfmssy4249-01-37 08:05:00* Test Item Value Reference Range Interpretation Comments LDL Cholesterol (test code = 63993-9) 104 60-130 [facility] CenterHDL Kqwjzrmvucy0865-56-17 08:05:00* Test Item Value Reference Range Interpretation Comments HDL Cholesterol (test code = 2085-9) 23 40-60 L [facility] CenterCholesterol/HDL Jmrjw6075-04-30 08:05:00 * Test Item Value Reference Range Interpretation Comments Cholesterol/HDL Ratio (test code = 9830-1) 8.3 3.9-4.7 H [facility] CenterB-Type Natriuretic Wuvmtpk7546-28-15 20:01:00* Test Item Value Reference Range Interpretation Comments B-Type Natriuretic Peptide (test code = 29205-3) 149.6 0-100 H [facility] CenterProthrombin Bxqz9440-54-31 19:29:00* Test Item Value Reference Range Interpretation Comments Prothrombin Time (test code = 5902-2) 14.2 11.9-14.5 [facility] CenterProthromb Time International Ratio 2017-07-07 19:29:00* Test Item Value Reference Range Interpretation Comments Prothromb Time International Ratio (test code = 6301-6) 1.05 Oral Anticoagulant Therapy INR Values:1. Low Intensity Therapy 1.5 - 2.02 . Moderate Intensity Therapy 2.0 - 3.03. High Intensity Therapy(1) 2.5 - 3. 54. High Intensity Therapy(2) 3.0 - 4.05. Panic Value INR > 5.0 [facility] CenterActivated Partial Thromboplast Time 2017-07-07 19:29:00* Test Item Value Reference Range Interpretation Comments Activated Partial Thromboplast Time (test code = 40145-9) 30.3 23.8-35.5 [facility] [address] [place] [address] Patient Name: ELIDIA ZAMORA MR #: [id number] : 1965 Age/Sex: 51/M Req #: [id number] Adm Physician: Ordered by: AGUILA RECIO MD Report #: [id number] Location: ER Room/Bed: Procedure: [id number] DX/CHEST SINGLE (PORTABLE) Exam Date: 07/07/17 Exam [...]
[2020-04-23 23:41] LABS: ANION GAP 20.7 mmol/L (8-16); CALCIUM 8.2 mg/dL (8.4-10.2); CREATININE, SERUM 7.64 mg/dL (0.72-1.25); POTASSIUM 4.7 mmol/L (3.5-5.1)
[2020-04-24] VITALS (7 sets, daily range): BP systolic 120–135; BP diastolic 59–72
[2020-04-24] MEDS ORDERED: VANCOMYCIN 1GM/NS 250 ML 250 ML IV ONE (00:15)
[2020-04-24] MEDS ORDERED: DEXTROSE 50% SYRINGE 50 ML IV PRN ×2 (00:30→10:45)
[2020-04-24] MEDS ORDERED: ACETAMINOPHEN 325 MG TAB PO PRN ×2 (00:30→10:45)
[2020-04-24] MEDS: PIPERACILLIN/TAZO 2.25 GM 50 ML IV SCH ×2 (00:32→11:25)
--- OUTSIDE RECORDS SUMMARY | 2020-04-24 00:46 | XMS REPORT | Clinical Summary ---
Author Author KOBE [facility] Organization [facility] Address Unknown Phone Unavailable Care Team Providers Care Heading Repairer Name Role Phone PCP Unavailable Allergies Comments [...] MD ESRD (end stage renal disease) ([facility]); Pre-transplant evaluation for end stage renal disease; Maturity onset diabetes mellitus in young ([facility]); Essential hypertension, malignant; Anemia of chronic renal failure, unspecified CKD stage; Abnormal blood chemistry; Pre-operative cardiovascular examination; Pure hypercholesterolemia; Atherosclerosis of [place] coronary artery of [place] heart without angina pectoris; Impending cerebrovascular accident ([facility]) 05/06/2019 Hospital Encounter Wilton iSngh II, MD ESRD (end stage renal disease) ([facility]); Pre-transplant evaluation for end stage renal disease; Maturity onset diabetes mellitus in young ([facility]); Essential hypertension, malignant; Anemia of chronic renal failure, unspecified CKD stage; Abnormal blood chemistry; Pre-operative cardiovascular examination; Pure hypercholesterolemia; Atherosclerosis of [place] coronary artery of [place] heart without angina pectoris; Impending cerebrovascular accident ([facility]) 05/06/2019 Hospital Radiology Encounter Wilton Singh II, MD ESRD (end stage renal disease) ([facility]); Pre-transplant evaluation for end stage renal disease; Maturity onset diabetes mellitus in young ([facility]); Essential hypertension, malignant; Anemia of chronic renal failure, unspecified CKD stage; Abnormal blood chemistry; Pre-operative cardiovascular examination; Pure hypercholesterolemia; Atherosclerosis of [place] coronary artery of [place] heart without angina pectoris; Impending cerebrovascular accident ([facility]); Pre-transplant evaluation for chronic kidney disease 05/06/2019 Hospital Cardiology Encounter Wilton Singh II, MD ESRD (end stage renal disease) ([facility]); Pre-transplant evaluation for end stage renal disease; Maturity onset diabetes mellitus in young ([facility]); Essential hypertension, malignant; Anemia of chronic renal failure, unspecified CKD stage; Abnormal blood chemistry; Pre-operative cardiovascular examination; Pure hypercholesterolemia; Atherosclerosis of [place] coronary artery of [place] heart without angina pectoris; Impending cerebrovascular accident (HCC) 05/06/2019 Hospital Cardiology Encounter Wilton Singh II, MD ESRD (end stage renal disease) ([facility]); Pre-transplant evaluation for end stage renal disease; Maturity onset diabetes mellitus in young (HCC); Essential hypertension, malignant; Anemia of chronic renal failure, unspecified CKD stage; Abnormal blood chemistry; Pre-operative cardiovascular examination; Pure hypercholesterolemia; Atherosclerosis of [place] coronary artery of [place] heart without angina pectoris; Impending cerebrovascular accident (HCC) 05/06/2019 Orders Only Lab Wilton Singh II, MD 05/06/2019 Outside Orders after 04/24/2019 Family History Medical History Relation Name Comments [...] ge renal 4:12 PM CDT disease) ([facility]) Pre-transplant evaluation for end stage renal disease Maturity onset diabetes mellitus in young ([facility]) Essential hypertension, malignant Anemia of chronic renal failure, unspecified CKD stage Abnormal blood chemistry Pre-operative cardiovascular examination Pure hypercholesterolemia Atherosclerosis of [place] coronary artery of [place] heart without angina pectoris Impending cerebrovascular accident ([facility]) US ABDOMEN COMPLETE Routine 05/06/2019 ESRD (end stage renal 4:02 PM CDT disease) ([facility]) Pre-transplant evaluation for end stage renal disease Maturity onset diabetes mellitus in young ([facility]) Essential hypertension, malignant Anemia of chronic renal failure, unspecified CKD stage Abnormal blood chemistry Pre-operative cardiovascular examination Pure hypercholesterolemia Atherosclerosis of [place] coronary artery of [place] heart without angina pectoris Impending cerebrovascular accident ([facility]) STRESS ECHO Routine 05/06/2019 ESRD (end stage renal 2:14 PM CDT disease) ([facility]) Pre-transplant evaluation for end stage renal disease Maturity onset diabetes mellitus in young ([facility]) Essential hypertension, malignant Anemia of chronic renal failure, unspecified CKD stage Abnormal blood chemistry Pre-operative cardiovascular examination Pure hypercholesterolemia Atherosclerosis of [place] coronary artery of [place] heart without angina pectoris Impending cerebrovascular accident ([facility]) 2D ECHO W/ DOPPLER Routine 05/06/2019 ESRD (end s tage renal (CW/PW/COLOR) 1:33 PM CDT disease) ([facility]) Pre-transplant evaluation for end stage renal disease Maturity onset diabetes mellitus in young ([facility]) Essential hypertension, malignant Anemia of chronic renal failure, unspecified CKD stage Abnormal blood chemistry Pre-operative cardiovascular examination Pure hypercholesterolemia Atherosclerosis of [place] coronary artery of [place] heart without angina pectoris Impending cerebrovascular accident ([facility]) ECG 12-LEAD Routine 05/06/2019 ESRD (end stage renal 12:47 PM CDT disease) ([facility]) Pre-transplant evaluation for end stage renal disease Maturity onset diabetes mellitus in young (HCC) Essential hypertension, malignant Anemia of chronic renal failure, unspecified CKD stage Abnormal blood chemistry Pre-operative cardiovascular examination Pure hypercholesterolemia Atherosclerosis of [place] coronary artery of [place] heart without angina pectoris Impending cerebrovascular accident (HCC) BLOOD TYPING, AUTOMATED Routine 05/06/2019 ESRD ( end stage renal 12:37 PM CDT disease) (HCC) Pre-transplant evaluation for end stage renal disease Maturity onset diabetes mellitus in young (HCC) Essential hypertension, malignant Anemia of chronic renal failure, unspecified CKD stage Abnormal blood chemistry Pre-operative cardiovascular examination Pure hypercholesterolemia Atherosclerosis of [place] coronary artery of [place] heart without angina pectoris Impending cerebrovascular accident (HCC) after 04/24/2019 Results * ECHOCARDIOGRAM REPORT - SCAN (05/08/2019 [...] CDT) Specimen Narrative Performed At [facility] Chest, PA and lateral. History: End-stage renal disease. Comparison: None available. Discussion:The cardiomediastinal si lhouette and pulmonary vasculature are within normal limits. T he lungs are clear without evidence of consolidation or effusion. There are no acute osseous abnormalities. The soft tissues are unr emarkable. IMPRESSION: No acute cardiopulmonary abnormality. Signed: Gema Nicholas MD Report Verified Date/Time: 9 16:25:39 Reading Location: [address] [facility] Procedure Note Interface, External Ris [...] Report Verified Date/Time: 05/06/2019 16:25:39 Reading Location: [address] Radiology Reading Room Performing Organization Address City/State/Zipcode Ph one Number [employer] * US abdomen complete (05/06/2019 4:02 PM CDT) Specimen Narrative Performed At FINAL REPORT [employer] Ultrasound of the Abdomen, 05/06/2019. Clinical History:End-stage [...] Report Verified Date/Time: 9 16:42:41 Reading Location: [address] Radiolo gy Reading Room Procedure Note [...] Report Verified Date/Time: 05/06/2019 16:42:41 Reading Location: [address] Radiology Reading Room Performing Organization Address City/State/Zipcode Ph one Number GE RIS * Stress Echo With Tracing (05/06/2019 2:14 PM CDT) Ejection Fraction [facility] Specimen Narrative Performed At Stress Echocardiography Report [facility] Demographics [facility] Patient NameELIDIA HART Date of Study05/06/2019 CYLDE Rizo Male Visit [id number] Race Room NumberOP Number Date of 1965Referring Samantha Damon Physician Age 53 year(s)Quality Control Operator Chandni Reardon [facility] Interpreting Oscar garcía MD Physician FellowCHERYL [...] 05/06/2019 CLYDE KEITH Gender Male Visit Number [id number] Race Room Number OP Number Date of 1965 Referring Samantha Damon Physician Age 53 year(s) Quality Control Operator Chandni Reardon RDCS Interpreting Oscar Schuler [...] Performing Organization Address City/State/Zipcode Ph one Number [facility] * 2D Echo W/Doppler(CW/PW/Color) (05/06/2019 1:33 PM CDT) Ejection Fraction [facility] Specimen Narrative Performed At Transthoracic Echocardiography Report (TTE) [facility] O HEARTLAB Demographics [facility] Patient NameELIDIA HART Date of Study05/06/2019 CLYDE Rizo Male Visit [id number] Race Room NumberOP Number Date of 1965Referring Samantha Damon Physician Age 53 year(s)Quality Control Operator Chandni Reardon [facility] Interpreting Oscar garcía MD Physician Fellowll [...] 05/06/2019 CLYDE KEITH Gender Male Visit Number [id number] Race Room Number OP Number Date of 1965 Referring Samantha Damon Physician Age 53 year(s) Quality Control Operator Chandni Reardon RDCS Interpreting Oscar Schuler [...] Mean Gradient: 1.39 mmHg Performing Organization Address [facility] [place] one Number [facility] E[facility] MKCKESSON CPA * ECG 12 lead (05/06/2019 12:47 PM CDT) Specimen Narrative Performed At Ventricular Rate 81 BPM GE MUSE Atrial Rate 81 BPM P-R Interval 186 ms QRS Duration 82 ms Q-T Interval 424 ms QTC Calculation(Bazett) 492 ms P [place] 55 degrees R [place] 27 degrees T [place] 48 degrees Normal sinus rhythm Prolonged QT Abnormal ECG No previous ECGs available Confirmed by MD Lema Roberto ([id number]) on 05/06/2019 1:59:56 PM Procedure Note Interface, External Ris In - 05/06/2019 2:00 PM CDT Ventricular Rate 81 BPM Atrial Rate 81 BPM P-R Interval 186 ms QRS Duration 82 ms Q-T Interval 424 ms QTC Calculation(Bazett) 492 ms P [place] 55 degrees R [place] 27 degrees T [place] 48 degrees Normal sinus rhythm Prolonged QT Abnormal ECG No previous ECGs available Confirmed by MD Lema Roberto ([id number]) on 05/06/2019 1:59:56 PM Performing Organization Address City/State/Zipcode Ph one Number NIKOLAS MEDLEY * Blood typing, automated (05/06/2019 12:37 PM CDT) ABO/RH AUTOMATED (BEAKER) O POSITIVE [facility] Specimen Blood Performing Organization Address City/State/Zipcode Ph one Number [facility] [address] [place] [address] [facility] after 04/24/2019 Insurance Payer Benefit Subscriber ID Type Phone Address Plan / Group MEDICARE MEDICARE A xxxxxxxxxxx Medicare B
--- OUTSIDE RECORDS SUMMARY | 2020-04-24 00:47 | XMS REPORT | Continuity of Care Document ---
Author Author [facility] t Organization [facility] Address [address] [place] [address] Phone Unavailable Care Team Providers Care Manager Development Name Role Phone BERT DALTON MD [facility] PCP Ksenia RAM Attphys Unavailable Gisela Jimenez Attphys Unavailable Roverto Cruz Joseline Attphys Unavailable Ksenia Lubin Attphys Unavailable Kishore NELSON, Alka Attphys Unavailable Te NELSON, Ester Attphys Unavailable Nelson Locke MD Attphys Mary MERAZ Attphys Unavailable Nelson LOCKE Attphys Unavailable Sharonda RECIO Attphymary Unavailable Payers Payer Name Policy Type Policy Number Effective Date Expiration Date Mary baerce Medicare A & B [id number] 2016 00:00:00 [facility] MEDICAREMEDICARE A BxxxxxxxxxxxMedicare xxxxxxxxxxx [facility] Problems Condition Name Condition Details [...] urine. He does not have potential donors. [facility] Hypertension Hypertension Disease Active 2019-02-25 00:00:00 Last Assessment & Plan: Blood pressure management per nephrology. [facility] Diabetes mellitus Diabetes mellitus Disease Active 2019-02-25 00:00:00 Overview: Type 2Last Assessment & Plan: Diabetes type 2. He will continue follow up with primary care for blood glucose management. [facility] Pre-transplant evaluation for chronic kidney disease P re-transplant evaluation for chronic kidney disease Disease Active 2019-02-25 00:00:00 Last Assessment & Plan: He is an acceptable candidate for kidney transplant pending a cardiac cath due to age and diabetes. [facility] Obesity Obesity Disease Active 2019-02-25 00:00:00 Last Assessment & Plan: Current BMI is 36. Though his body habitus appears smaller. He was encouraged to monitor his oral intake and to exercise as tolerated. [facility] Chest pain Chest pain Problem Active [facility] End-stage renal disease ESRD (end stage renal disease) Problem Active [facility] Hyperglycemia Hyperglycemia Problem Active [facility] Otitis externa Problem Active [facility] Fever Problem Active [facility] Failure of outpatient treatment Problem Active [facility] Allergies, Adverse Reactions, Alerts Allergy Name Allergy Type Status Severity Reaction(s) Onset Date Inacti ve Date Treating Clinician Comments Source adhesive tape DA Active MO 2018-10-02 00:00:00 [facility] Adhesive Tape Drug Allergy Active Rash 2018-10-02 00:00:00 Silk Tape Only. [facility] No Known Allergies DA Active U 2014-02-16 00:00:00 [facility] Family History Family Member Diagnosis Comments Start Date Stop Date Source Natural brother Blindness [facility] Natural brother Kidney failure [facility] Natural brother Peripheral vascular disease [facility] Natural brother Diabetes [facility] Natural father Diabetes [facility] Natural father Kidney failure [facility] Natural mother Diabetes [facility] Natural mother Peripheral vascular disease [facility] Family member Colon cancer [facility] Family member Heart disease [facility] Social History Social Habit Start Date Stop Date Quantity Comments Source History SDOH Alcohol Std Drinks [facility] History SDOH Alcohol Binge [facility] Sex Assigned At [facility] History SDOH Alcohol Frequency 2019-02-25 00:00:00 2019-02-25 00:00:0 0 1 [facility] Smoking Status Start Date Stop Date Source Never smoker [facility] Medications Ordered Medication Name Filled Medication Name Start Date Stop Da te Current Medication? Ordering Clinician Indication Dosage Frequency Signature (SIG) Comments Components Source Clonidine Hcl (Catapres) 0.2 Mg TABLET Clonidine Hcl (Catapr es) 0.2 Mg TABLET 2020-04-22 09:35:00 Yes .2 Twice A Day [facility] Insulin Detemir (Levemir Flextouch) 100 Unit/[address]PEN Insulin Detemir (Levemir Flextouch) 100 Unit/1 Ml INSULN.PEN 2020-04-21 08:34:00 Yes 40 Bedtime [facility] Acetaminophen With Codeine (Tylenol With Codeine #3 Ta blet) 1 Each TABLET Acetaminophen With Codeine (Tylenol With Codeine #3 Tablet) 1 Each TABLET 2020-04-21 08:33:00 Yes 300 Every 8 Hours as n eeded for Pain [facility] Amoxicillin/Potassium Clav (Augmentin 875-125 Tablet) 1 Each TABLET Amoxicillin/Potassium Clav (Augmentin 875-125 Tablet) 1 Each TABLET 2020-04-21 08:33:00 Yes 1 Twice A Day [facility] Glipizide Glipizide 2020-04-21 08:33:00 Yes 5 Daily [facility] Neomycin/Polymyxin B Sulf/Hc (Qngcwltt-Dpmayqgwm-Np Ea r Soln) 10 Ml SOLUTION Neomycin/Polymyxin B Sulf/Hc (Pcxwvidj-Uaiafbgaw-Rb Ear Soln) 10 Ml SOLUTION 2020-04-21 08:33:00 Yes 0 Four Times Daily [facility] aspirin 81 MG EC tablet 2019-02-25 10:50:02 Yes 81mg QD Take 81 mg by mouth daily. [facility] metoprolol (LOPRESSOR) 25 MG tablet 2019-02-25 10:50:02 Yes 25mg QD Take 25 mg by mouth daily. [facility] sevelamer (RENVELA) 800 mg tablet 2019-02-25 10:50:02 Yes 2400mg Take 2,400 mg by mouth 3 (three) times daily with meals. [facility] sucroferric oxyhydroxide (VELPHORO) 500 mg Chew 2019-02-25 10:50 :02 Yes 500mg Q.[id number] Take 500 mg by mouth 3 (three) times daily. [facility] clopidogrel (PLAVIX) 75 mg tablet 2019-02-25 10:50:02 Yes 75mg QD Take 75 mg by mouth daily. [facility] dexlansoprazole 60 mg capsule 2019-02-25 10:50:02 Yes 60mg QD Take 60 mg by mouth daily. [facility] Pantoprazole Sod (Protonix) 40 Mg/Ml SUSP Pantoprazole Sod (Protonix) 40 Mg/Ml SUSP 2017-07-08 13:24:00 Yes 40 Before Breakfast [facility] Metoclopramide Hcl Metoclopramide Hcl 2017-07-08 13:24:00 2020-03-25 00:00:00 No 10 Twice Daily Before Meals [facility] Amlodipine Besylate (Norvasc) 10 Mg TAB Amlodipine Besylate (Norvasc) 10 Mg TAB 2017-07-08 13:23:00 Yes 10 Bedtime [facility] Glipizide (Glipizide Xl) 2.5 Mg TABCR Glipizide (Glipizide X l) 2.5 Mg TABCR 2017-07-08 13:23:00 2020-04-21 00:00:00 No 2.5 Daily @08 [facility] Insulin Detemir (Levemir) 100 Unit/1 Ml VIAL Insulin D etemir (Levemir) 100 Unit/1 Ml VIAL 2020-04-21 00:00:00 No 30 Bedtime [facility] Vital Signs Vital Name Observation Time Observation Value Comments Source Body Temperature 2020-04-22 11:32:00 99.8 [degF] [facility] Weight 2020-04-22 01:01:00 238.44 [lb_av] [facility] BMI (Body Mass Index) 2020-04-22 01:01:00 37.3 kg/m2 [facility] Systolic blood pressure 2019-05-06 14:50:00 136 mm[Hg] [facility] Diastolic blood pressure 2019-05-06 14:50:00 85 mm[Hg] [facility] Heart rate 2019-05-06 14:50:00 96 /min [facility] Respiratory rate 2019-05-06 14:50:00 18 /min [facility] Body height 2019-05-06 13:00:00 170.2 cm [facility] Body weight Measured 2019-05-06 13:00:00 104.327 kg [facility] BMI 2019-05-06 13:00:00 36.02 kg/m2 [facility] Procedures Procedure Date / Time Performed Performing Clinician [facility] e ECHOCARDIOGRAM REPORT - SCAN 2019-05-08 21:23:16 ProviderStephany lt Scanning [facility] PERIPHERAL VASCULAR REPORT - SCAN 2019-05-08 21:21:25 Provid er, Default Scanning [facility] TRANSFUSION SERVICE REPORT - SCAN 2019-05-07 18:04:28 Provid er, Default Scanning [facility] XR CHEST 2 VIEWS 2019-05-06 16:12:[address] [facility] US ABDOMEN COMPLETE 2019-05-06 16:02:00 Wilton Locke [facility] I [facility] STRESS ECHO 2019-05-06 14:14:07 Wilton Locke [facility] 2D ECHO W/ DOPPLER (CW/PW/COLOR) 2019-05-06 13:33:00 Wilton Locke [facility] ECG 12-LEAD 2019-05-06 12:47:01 Wilton Locke [facility] BLOOD TYPING, AUTOMATED 2019-05-06 12:37:00 Wilton Locke [facility] Plan of Care Planned Activity Planned Date Details Comments Source Future Scheduled Test 2020-05-25 00:00:00 INFLUENZA VACCINE (#1) [code = INFLUENZA VACCINE (#1)] [facility] Future Scheduled Test 2019-08-27 00:00:00 Hemoglobin A1c clarissa surement (procedure) [code = 25101667] [facility] Future Scheduled Test 2017-07-26 00:00:00 MEDICARE ANNUAL WE LLNESS (YEAR 2 or FIRST YEAR if no IPPE) [code = MEDICARE ANNUAL WELLNESS (YEAR 2 or FIRST YEAR if no IPPE)] [facility] Future Scheduled Test 2017-06-13 00:00:00 PNEUMOCOCCAL VACCI NE 2-64 YEARS AT RISK (2 of 3 - PCV13) [code = PNEUMOCOCCAL VACCINE 2-64 YEARS AT RISK (2 of 3 - PCV13)] [facility] Future Scheduled Test 1976 00:00:00 DIABETIC EYE EXAM [code = DIABETIC EYE EXAM] [facility] Future Scheduled Test 1976 00:00:00 Diabetic foot exam ination (regime/therapy) [code = 580481599] [facility] Future Scheduled Test 1976 00:00:00 Urine screening fo r protein (procedure) [code = 078783415] [facility] Future Scheduled Test 1966 00:00:00 Screening for elidia gnant neoplasm of colon (procedure) [code = 950778030] [facility] Instructions Instilling Ear Drops [facility] Instructions Otitis Externa - Adult [facility] Instructions Ear Pain - Adult [facility] Instructions Infection Control [facility] Encounters Start Date/Time End Date/Time Encounter Type Admission Type Attendi [facility] Care Department Encounter ID Source 2020-04-19 22:53:00 2020-04-22 13:16:00 Discharged Inpatient 1 ROBBY RAM [facility] [id number] [facility] 2018-12-31 11:43:00 2018-12-31 17:03:[address] [facility] [id number] [facility] 2017-12-20 17:53:00 2017-12-21 02:19:[address] [facility] [id number] [facility] 2017-07-07 20:46:00 2017-07-08 14:10:00 Discharged Inpatient (obs) ER AGUILA RECIO [facility] [id number] [facility] Results Test Description Test Time Test Comments Results Result Comments Source Capillary blood glucose measurement by glucometer (mas s/volume) 2020-04-22 10:38:00 Test Item Bedside Glucose (test code = 45382-2) 259 70-120 Meter ID: [id number] [facility] HospitalBlood leukocytes automated count (number/volume)2020-04-22 05:40:00* Test Item Value Reference Range Interpretation Comments White Blood Count (test code = 6690-2) 8.46 4.8-10.8 [facility] erythrocytes automated count (number/volume)2020-04-22 05:40:00* Test Item Value Reference Range Interpretation Comments Red Blood Count (test code = 789-8) 3.77 4.3-5.7 [facility] hemoglobin measurement (moles/volume)2020-04-22 05:40:00* Test Item Value Reference Range Interpretation Comments Hemoglobin (test code = 62578-6) 10.7 14.0-18.0 [facility] CenterAutomated blood hematocrit (volume fraction)2020-04-22 05:40:00* Test Item Value Reference Range Interpretation Comments Hematocrit (test code = 4544-3) 33.4 38.2-49.6 [facility] CenterAutomated erythrocyte mean corpuscular uswukw3949-30-62 05:40:00* Test Item Value Reference Range Interpretation Comments Mean Corpuscular Volume (test code = 787-2) 88.6 81-99 [facility] CenterAutomated erythrocyte mean corpuscular hemoglobin (mass per erythrocyte)2020-04-22 05:40:00* Test Item Value Reference Range Interpretation Comments Mean Corpuscular Hemoglobin (test code = 785-6) 28.4 28-32 [facility] CenterAutomated erythrocyte mean corpuscular hemoglobin concentration measurement (mass/volume)2020-04-22 05:40:00* Test Item Value Reference Range Interpretation Comments Mean Corpuscular Hemoglobin Concent (test code = 786-4) 32.0 31-35 [facility] CenterRDW WfmRd-Rsg9293-39-30 05:40:00* Test Item Value Reference Range Interpretation Comments Red Cell Distribution Width (test code = 99487-5) 12.9 11.7 -14.4 [facility] CenterAutomated blood platelet count (count/volume)2020-04-22 05:40:00* Test Item Value Reference Range Interpretation Comments Platelet Count (test code = 777-3) 225 140-360 [facility] CenterAut[facility] al[facility] regionaled blood segmented neutrophil count as percentage of total vjpkptmzds9060-93-95 05:40:00* Test Item Value Reference Range Interpretation Comments Neutrophils (%) (Auto) (test code = 97459-2) 63.8 38.7-80.0 [facility] CenterAutomated blood lymphocyte count as percentage ot total sxvbbcnbdo9617-19-78 05:40:00* Test Item Value Reference Range Interpretation Comments Lymphocytes (%) (Auto) (test code = 736-9) 20.1 18.0-39.1 [facility] CenterAutomated blood monocyte count as percentage of total zdyfxlazmf9408-16-39 05:40:00* Test Item Value Reference Range Interpretation Comments Monocytes (%) (Auto) (test code = 5905-5) 13.2 4.4-11.3 [facility] CenterAutomated blood eosinophil count as percentage of total yabwpphuml6588-84-14 05:40:00* Test Item Value Reference Range Interpretation Comments Eosinophils (%) (Auto) (test code = 713-8) 1.3 0.0-6.0 [facility] CenterAutomated blood basophil count as percentage of total iuooohcphz3689-74-02 05:40:00* Test Item Value Reference Range Interpretation Comments Basophils (%) (Auto) (test code = 706-2) 0.9 0.0-1.0 [facility] CenterFluoroscopic procedure less than one hour jfdlcxns4465-58-44 05:40:00* Test Item Value Reference Range Interpretation Comments IM GRANULOCYTES % (test code = IM GRANULOCYTES %) 0.7 0.0- 1.0 [facility] CenterAutomated blood neutrophil count 2020-04-22 05:40:00* Test Item Value Reference Range Interpretation Comments Neutrophils # (Auto) (test code = 751-8) 5.4 2.1-6.9 [facility] CenterBlood lymphocytes count (number/volume) 2020-04-22 05:40:00* Test Item Value Reference Range Interpretation Comments Lymphocytes # (Auto) (test code = 22629-0) 1.7 1.0-3.2 [facility] CenterBlood monocytes automated count (number/volume)2020-04-22 05:40:00* Test Item Value Reference Range Interpretation Comments Monocytes # (Auto) (test code = 742-7) 1.1 0.2-0.8 [facility] CenterAutomated blood eosinophil count 2020-04-22 05:40:00* Test Item Value Reference Range Interpretation Comments Eosinophils # (Auto) (test code = 711-2) 0.1 0.0-0.4 [facility] CenterAutomated blood basophil count (count/volume)2020-04-22 05:40:00* Test Item Value Reference Range Interpretation Comments Basophils # (Auto) (test code = 704-7) 0.1 0.0-0.1 [facility] CenterFluoroscopic procedure less than one hour taqnygck9318-85-11 05:40:00* Test Item Value Reference Range Interpretation Comments Absolute Immature Granulocyte (auto (osman t code = Absolute Immature Granulocyte (auto) 0.06 0-0.1 [facility] sodium measurement (moles/volume)2020-04-22 05:10:00* Test Item Value Reference Range Interpretation Comments Sodium Level (test code = 2951-2) 135 136-145 [facility] or plasma potassium measurement (moles/volume)2020-04-22 05:10:00* Test Item Value Reference Range Interpretation Comments Potassium Level (test code = 2823-3) 4.4 3.5-5.1 [facility] or plasma chloride measurement (moles/volume)2020-04-22 05:10:00* Test Item Value Reference Range Interpretation Comments Chloride Level (test code = 2075-0) 95 98-107 [facility]ererum or plasma carbon dioxide, total measurement (moles/volume)2020-04-22 05:10:00* Test Item Value Reference Range Interpretation Comments Carbon Dioxide Level (test code = 2028-9) 24 22-29 [facility] or plasma anion azz3013-18-44 05:10:00* Test Item Value Reference Range Interpretation Comments Anion Gap (test code = 24914-5) 20.4 8-16 [facility] or plasma urea nitrogen measurement (mass/volume)2020-04-22 05:10:00* Test Item Value Reference Range Interpretation Comments Blood Urea Nitrogen (test code = 3094-0) 38 7-26 [facility]ere[facility] or plasma creatinine measurement (mass/volume)2020-04-22 05:10:00* Test Item Value Reference Range Interpretation Comments Creatinine (test code = 2160-0) 8.80 0.72-1.25 [facility]ere[facility] or plasma urea nitrogen/creatinine mass ysrrh2338-49-88 05:10:00* Test Item Value Reference Range Interpretation Comments BUN/Creatinine Ratio (test code = 3097-3) 4 6-25 [facility] CenterEstimated glomerular filtration rate (GFR) qixqdxqtntwhh2547-33-71 05:10:00* Test Item Value Reference Range Interpretation Comments Estimat Glomerular Filtration Rate (test code = 129858391) 6 >60 Ranges were taken from the National Kidney Disease Education Program and the [facility] [employer] literature.Reference ranges:60 or greater: Cmxbiv00-97 ( for 3 consecutive months): Chronic kidney disease 15 or less: Kidney failureValley Regional Medical CenterGlucose phvpjoadbvu7144-48-80 05:10:00* Test Item Value Reference Range Interpretation Comments Glucose Level (test code = QMU7733) 179 74-118 [facility]ere[facility] or plasma calcium measurement (mass/volume)2020-04-22 05:10:00* Test Item Value Reference Range Interpretation Comments Calcium Level (test code = 87037-1) 8.0 8.4-10.2 [facility]ere[facility] or plasma total bilirubin measurement (mass/volume)2020-04-22 05:10:00* Test Item Value Reference Range Interpretation Comments Total Bilirubin (test code = 1975-2) 0.4 0.2-1.2 [facility] CenterFluoroscopic procedure less than one hour vurzglkh3827-38-56 05:10:00* Test Item Value Reference Range Interpretation Comments Aspartate Amino Transf (AST/SGOT) (test code = Aspartate Amino Transf (AST/SGOT)) 9 5-34 [facility]ererum or plasma alanine aminotransferase measurement (enzymatic activity/volume)2020-04-22 05:10:00* Test Item Value Reference Range Interpretation Comments Alanine Aminotransferase (ALT/SGPT) (test code = 1742-6) 11 0-55 [facility]ere[facility] or plasma protein measurement (mass/volume)2020-04-22 05:10:00* Test Item Value Reference Range Interpretation Comments Total Protein (test code = 2885-2) 7.1 6.5-8.1 [facility]ere[facility] or plasma albumin measurement (mass/volume)2020-04-22 05:10:00* Test Item Value Reference Range Interpretation Comments Albumin (test code = 1751-7) 2.6 3.5-5.0 [facility] CenterPlasma globulin measurement (mass/volume) 2020-04-22 05:10:00* Test Item Value Reference Range Interpretation Comments Globulin (test code = 95076-1) 4.5 2.3-3.5 [facility]ererum or plasma albumin/globulin mass fmlou0831-78-78 05:10:00* Test Item Value Reference Range Interpretation Comments Albumin/Globulin Ratio (test code = 1759-0) 0.6 0.8-2.0 [facility]ererum or plasma alkaline phosphatase measurement (enzymatic activity/volume)2020-04-22 05:10:00* Test Item Value Reference Range Interpretation Comments Alkaline Phosphatase (test code = 6768-6) 149 40-150 [facility]ererum hepatitis B virus surface antibody assay by radioimmunoassay (units/volume)2020-04-21 17:30:00* Test Item Value Reference Range Interpretation Comments Hepatitis B Surface Antibody, Quant (test code = 5194-6) >1000.0 Immunity>9.9 Status of Immunity Anti-HBs Level Inconsistent with Immunity 0.0 - 9.9Consistent with Immunity >9.9[facility] or plasma hepatitis B virus core antibody detection by lwholrnypjh8461-37-33 17:30:00* Test Item Value Reference Range Interpretation Comments Hepatitis B Core Total Antibody (test code = 76361-1) Negative Negative [facility]ererum or plasma hepatitis B virus surface antigen detection by mxgmbseqtkw3274-61-02 17:30:00* Test Item Value Reference Range Interpretation Comments Hepatitis B Surface Antigen (test code = 5196-1) Negative Negat tadeo [facility]ererum or plasma hepatitis B virus core IgM antibody detection by jsrbwgfpknz2462-45-02 17:30:00* Test Item Value Reference Range Interpretation Comments Hepatitis B Core IgM Antibody (test code = 29761-7) Negative Ne gative Performed at: [address] [id number] Director: Mannie Gunter MD, Phone: [phone] [facility] HospitalFluoroscopic procedure less than one hour oefkauej7533-92-19 05:05:00* Test Item Value Reference Range Interpretation Comments Hemoglobin A1c Percent (test code = Hemoglobin A1c Percent) 13.6 4.0-7.[address] HospitalCHEST SINGLE (PORTABLE)2020-04-19 22:15:00 [facility] [address] [place] [address] Patient Name: ELIDIA ZAMORA MR #: [id number] : 1965 Age/Sex: 54/M Req #: [id number] Adm Physician: Ordered by: ROBBY RAM MD Report #: [id number] Location: ER Room/Bed: Procedure: [id number] DX/CHEST SINGLE (PORTABLE) Exam Date: 04/19/20 Exam [...] = Coronavirus (PCR)) NOT DETECTED NOTD ETECTED [employer] Aptima SARS-CoV-2 assay is a nucleic amplification test intended for the qualitative detection of RNA from SARS-CoV-2 from nasopharyngeal (YOUTH DEVELOPMENT SPECIALIST) specimens. It is used under Emergency Use [...] clinically indicated.Tesing performed by:[facility] [address] [place] [id number], Robby Ordonez MD, PhD [facility] CenterFluoroscopic procedure less than one hour ekhwbluy4670-96-92 20:50:00* Test Item Value Reference Range Interpretation Comments Lactic Acid Level (test code = Lactic Acid Level) 1.6 0.5- 2.0 [facility] or plasma creatine kinase measurement (enzymatic activity/volume)2020-04-19 20:50:00* Test Item Value Reference Range Interpretation Comments Creatine Kinase (test code = 2157-6) 144 30-200 [facility]ererum or plasma creatine kinase MB measurement (mass/volume)2020-04-19 20:50:00* Test Item Value Reference Range Interpretation Comments Creatine Kinase MB (test code = 64361-6) 2.20 0-5.0 [facility] CenterTroponin I measurement by highly sensitive enzyme tkdpiboghtk1702-89-83 20:50:00* Test Item Value Reference Range Interpretation Comments Troponin I (test code = 85073-2) 0.051 0-0.300 [facility] CenterBlood ztbzjvj3273-96-97 20:50:00* Test Item Value Reference Range Interpretation Comments Blood Culture (test code = 04422590) NO GROWTH AFTER 48 HOURS [facility]2D Echo W/Doppler(CW/PW/Color)2019-05-08 14:53:08Ejection FractionSLEH ECHO HEARTLAB SHANNA CPACSInterface, External Ris In - 05/08/2019 2:53 PM CDTTransthoracic Echocardiography Report (TTE) Demographics Patient Name ELIDIA ZAMORA Date of Study 05/06/2019 CLYDE KEITH Gender Male Visit Number [id number] Race Room Number OP Number Date of 1965 Referring Samantha Damon Physician Age 53 year(s) Legal Records Manager Chandni Reardon [facility] Interpreting Oscar Schuler MD Physician Fellow [...] Velocity: 0.59 m/s Mean Gradient: 1.39 [facility] With Pdnvssv9232-10-69 14:49:43Ejection FractionSLEH ECHO HEARTLAB MKCKESSON CPACSInterface, External Ris In - 05/08/2019 2:49 PM CDTStress Echocardiography Report Demographics Patient Name ELIDIA ZAMORA Date of Study 05/06/2019 CLYDE KEITH Gender Male Visit Number [id number] Race Room Number OP Number Date of 1965 Referring Samantha Damon Physician Age 53 year(s) Legal Records Manager Chadnni Reardon RDCS Interpreting Oscar Schuler MD Physician [...] at a diagnostic level of stress. Signature [facility]/S, ABDOMINAL, MAOICLCO1688-63-94 16:42:00Reason for Exam:-> esrd/kidney transplant evaluationFINAL REPORT [...] MDReport Verified Date/Time: 05/06/2019 16:42:41 Reading Location: [address] Radiology Reading Room abdomen mrrpfpuu1604-05-86 16:42:00Interface, External Ris In - 05/06/2019 4:44 [...] Nicholas Verified Date/Time: 05/06/2019 16:42:41 Reading Location: [address] Radiology Reading [facility], 2 [id number] 16:25:00Reason for Exam:->esrd/kidney transplant evaluationFINAL REPORT Chest, PA and lateral. History: End-stage renal disease. Comparison: None available. Discussion: The cardiomediastinal silhouette and pulmonary vasculature are within normal limits. The lungs are clear without evidence of consolidation or effusion. There are no acute osseous abnormalities. The soft tissues are unremarkable. IMPRESSION: No acute cardiopulmonary abnormality. Signed: Gema Nicholas Verified Date/Time: 05/06/2019 16:25:39 Reading Location: [address] Radiology Reading Room chest 2 gvyjt0251-56-77 16:25:00Interface, External Ris In - 05/06/2019 4:27 [...] Nicholas Verified Date/Time: 05/06/2019 16:25:39 Reading Location: [address] Radiology Reading Room [facility] CenterBlood typing, iivqsppmu1231-58-63 14:38:00* Test Item Value Reference Range Interpretation Comments ABO/RH AUTOMATED (ALBERTO) (test code = 2260) O POSITIVE [facility] CenterECG 12 mbyo9509-32-62 13:59:59Interface, External Ris In - 05/06/2019 2:00 PM CDTVentricular Rate 81 BPMAtrial Rate 81 BPMP-R Interval 186 msQRS Duration 82 msQ-T Interval 424 msQTC Calculation(Bazett) 492 msP Crawford 55 degreesR Crawford 27 degreesT Crawford 48 degreesNormal sinus rhythmProlonged QTAbnormal ECGNo previous ECGs availableConfirmed by Yvonne rice MD, Roberto ([id number]) on 05/06/2019 1:59:56 PMCHI [facility] CenterUS ABDOMEN BYOCIPTA5140-99-05 08:50:00 [place] [address] Patient Name: ELIDIA ZAMORA MR #: [id number] : 1965 Age/Sex: 53/M Req #: [id number] Adm Physician: Ordered by: KOKO MERAZ MD Report #: [id number] Location: Room/Bed: Procedure: [id number] US/US A MONSE COMPLETE Exam Date: 02/27/19 [...] COPY TO: KOKO MERAZ MD CYTOMEGALOVIRUS ANTIBODY, [id number] 17:15:00* Test Item Value Reference Range Interpretation Comments CYTOMEGALOVIRUS, IGG (BEAKER) (test code = 3429) Positive Negat tadeo, Equivocal A CMV IgG Result Interpretation: </= 0.8 Al Negative 0.9-1.0 Al Equivocal > /=1.1 Al PositiveCYTOMEGALOVIRUS ANTIBODY, [id number] 17:15:00* Test Item Value Reference Range Interpretation Comments CYTOMEGALOVIRUS IGM ANTIBODY (BEAKER) (test code = 3437) Neg ative Negative, Equivocal CMV IgM Result Interpretation: </= 0.8 Al Negative 0.9-1.0 Al Equivocal > /= 1.1 Al PositiveEBV ANTIBODY, [id number] 17:14:00* Test Item Value Reference Range Interpretation Comments LAKESHA FREDERICK VIRAL CAPSID ANTIGEN IGM (BEAKER) (test code = 3418) Negative Negative, Equivocal Lakesha Frederick Viral Capsid Antigen IgM Result Interpretation: </= 0.8 Al Negative 0.9-1.0 Al Equivocal >/= 1.1 Al PositiveEBV ANTIBODY, [id number] 17:13:00* Test Item Value Reference Range Interpretation Comments LAKESHA FREDERICK VIRAL CAPSID ANTIGEN IGG (BEAKER) (test code = 3415) Positive Negative, Equivocal A Lakesha Frederick Viral Capsid Antigen IgG Result Interpretation: </= 0.8 Al Negative 0.9-1.0 Al Equivocal >/= 1.1 Al PositiveVARICELLA ZOSTER ANTIBODY, [id number] 17:07:00* Test Item Value Reference Range Interpretation Comments VARICELLA ZOSTER IGG (AL) (BEAKER) (test code = 3197) 1.9 VARICELLA ZOSTER RESULT INTERPRETATIONS: <=0.8 Al Nonreactive: Presumed non-immune to VZV 0.9-1.0 Al Equivocal >=1.1 Al Reactive: Presumed immune to VZVHEPATITIS B SURFACE LKHNBGQC5777-98-03 16:36:00 * Test Item Value Reference Range Interpretation Comments HEPATITIS B SURFACE ANTIBODY (BEAKER) (test code = 647) 9.4 mIU/mL <8.0 H HEPATITIS B SURFACE [id number] 16:28:00* Test Item Value Reference Range Interpretation Comments HEPATITIS B SURFACE ANTIGEN (2) (BEAKER) (test code = 2585) Nonreactive Nonreactive HEPATITIS B CORE ANTIBODY, [id number] 16:28:00* Test Item Value Reference Range Interpretation Comments HEPATITIS B CORE IGM ANTIBODY (BEAKER) (test code = 645) Non reactive Nonreactive HEPATITIS C [id number] 16:28:00* Test Item Value Reference Range Interpretation Comments HEPATITIS C ANTIBODY (BEAKER) (test code = 367) Nonreactive Nonrea ctive HIV-1 ANTIGEN WITH HIV-1/2 [id number] 16:28:00* Test Item Value Reference Range Interpretation Comments HIV-1 ANTIGEN WITH HIV 1\\T\\2 ANTIBODY (2) (BEAKER) (te st code = 2586) Nonreactive Nonreactive HEMOGLOBIN [id number] 16:04:00* Test Item Value Reference Range Interpretation Comments HEMOGLOBIN A1C (BEAKER) (test code = 368) 7.3 % 4.3-6.1 H [id number] 14:28:00* Test Item Value Reference Range Interpretation Comments RPR SCREEN (BEAKER) (test code = 420) Nonreactive Nonreactive PTH, [id number] 14:23:00* Test Item Value Reference Range Interpretation Comments PARATHYROID HORMONE INTACT (BEAKER) (test code = 577) 399.4 pg/mL 8.5-72.5 H COMPREHENSIVE METABOLIC [id number] 14:21:00* Test Item Value Reference Range Interpretation [...] IS NOT APPLICABLE FOR DIALYSIS PATIENTS. URIC [id number] 14:20:00* Test Item Value Reference Range Interpretation Comments URIC ACID (BEAKER) (test code = 773) 6.2 mg/dL 2.6-7.2 CEWYMTBSKQ8814-98-84 14:20:00* Test Item Value Reference Range Interpretation Comments PHOSPHORUS (BEAKER) (test code = 604) 6.4 mg/dL 2.3-4.7 H LIPID [id number] 14:20:00* Test Item Value Reference Range Interpretation [...] = 635) 228 U/L 125-2 20 H PT/YIHJ5029-16-62 13:57:00* Test Item Value Reference Range Interpretation [...] for patie nts wiht mechanical heart valves.PROTHROMBIN TIME/XGP5723-33-13 13:56:00* Test Item Value Reference Range Interpretation [...] mechanical heart valves.CBC W/PLT COUNT & AUTO BTPDGUMLNDBD3547-86-22 13:45:00* Test Item Value Reference Range Interpretation [...] (test code = 2801) 1 % 0-1 [id number] 13:46:00 RUN DATE: 01/30/19 [facility] PAGE 1 RUN TIME: 1346 Specimen Inqui ry RUN USER: INTERFACE PATIENT: ELIDIA ZAMORA JR ACCT #: [id number] [place]: [place] U #: [id number] AGE/SX: 53/M ROOM: RE01/28/19REG DR: Koko Meraz MD : 67 BED: DIS: STATUS: DEP [facility] TLOC: SPEC #: [id number] RECD: 01/29/19 STATUS: FLY GONZALEZ #: [id number] SAKSHI: 01/28/19 DR: Koko Meraz MD ENTERED: 01/29/19 SP TYPE: COLON OTHR DR: James Archer MD ORDERED: GROSS COPIES TO: James Archer MD [address] [place] [address] Koko Meraz MD [address] [address] PROCEDURES: GROSS (01/30/19) TI SSUES: 1. ASCENDING [...] CONTINUED ON NEXT PAGE RUN DATE: 01/30/19 [place] [facility] PAGE 2 RUN TIME: 1346 Specimen Inquiry RUN USER: INTERFACE SPEC #: [id number] PATIENT: ELIDIA ZAMORA JR #[id number] (Continued)-- FINAL DIAGNOSIS (Continued) [phone] MACROSCOPIC The first specimen is received in [...] submitted as (3). GROSS PE RFORMED AT [facility] [address] [place] [address] (p)[phone] MICROSCOPIC All of the stains, including any controls performed, stain appropriately. MICROSCOPIC PERFORMED AT [facility] [address] [place] [address] [phone])[phone] PERFO RMING SITE Diagnosis performed at: [facility] [address] [facility] [place] [address] Signed SIGNATURE ON FILE Shayla Mendoza MD 01/30/19 1346 END OF REPORT [id number] 13:16:00* Test Item Value Reference Range Interpretation Comments GLUBED (test code = GLUBED) 140 mg/dL 74-106 H Performed by certified facing machine operator at [facility] QRAUMEYAP5397-98-61 13:15:00* Test Item Value Reference Range Interpretation Comments POTASSIUM (test code = K) 4.5 mmol/L 3.5-5.1 N BASIC METABOLIC [id number] 13:24:00* Test Item Value Reference Range Interpretation [...] CA) 8.5 mg/dL 8.5-10.1 N BASIC METABOLIC [id number] 13:16:00* Test Item Value Reference Range Interpretation [...] code = CA) mg/dL 8.5-10.1 CBC W/AUTO [id number] 12:49:00* Test Item Value Reference Range Interpretation [...] NRBC#) 0.00 K/mm3 0.0-0.1 N Stool Occult Srgjy3593-31-51 16:40:00* Test Item Value Reference Range Interpretation Comments Stool Occult Blood (test code = 2335-8) POSITIVE NEGATIVE H [facility] CenterBedside Oaxtnus8757-99-09 16:31:00* Test Item Value Reference Range Interpretation Comments Bedside Glucose (test code = 98381-6) 106 70-120 Meter ID: [id number] Regional Medical CenterCreatine Kinase MB 2018-12-31 13:57:00* Test Item Value Reference Range Interpretation Comments Creatine Kinase MB (test code = 50635-3) 2.00 0-5.0 [facility] CenterTroponin [id number] 13:57:00* Test Item Value Reference Range Interpretation Comments Troponin I (test code = UJZ7723) 0.033 0-0.300 [facility] Centerodium Wuzor4762-34-49 13:53:00* Test Item Value Reference Range Interpretation Comments Sodium Level (test code = 2951-2) 132 136-145 L [facility] CenterPotassium Xjtub5116-97-43 13:53:00* Test Item Value Reference Range Interpretation Comments Potassium Level (test code = 2823-3) 6.4 3.5-5.1 Results repeated and called to hedii bowman at 1352 on 12/31/18 by Foreign kellogg Read back and verified.NO HEMOLYSISValley Regional Medical Center Chloride Ijkqe8503-24-41 13:53:00* Test Item Value Reference Range Interpretation Comments Chloride Level (test code = 2075-0) 94 98-107 L [facility] CenterCarbon Dioxide Pjbyj0905-08-99 13:53:00* Test Item Value Reference Range Interpretation Comments Carbon Dioxide Level (test code = 2028-9) 27 22-29 [facility] CenterAnion Vmh5479-69-91 13:53:00* Test Item Value Reference Range Interpretation Comments Anion Gap (test code = 82305-9) 17.4 8-16 H [facility] CenterBlood Urea Vsxbggsi2133-87-62 13:53:00* Test Item Value Reference Range Interpretation Comments Blood Urea Nitrogen (test code = 3094-0) 44 7-26 H [facility] CenterCreatinine2019-04-09 13:53:00* Test Item Value Reference Range Interpretation Comments Creatinine (test code = 2160-0) 10.85 0.72-1.25 H [facility] CenterBUN/Creatinine Knibb9426-68-58 13:53:00* Test Item Value Reference Range Interpretation Comments BUN/Creatinine Ratio (test code = 3097-3) 4 6-25 L [facility] CenterEstimat Glomerular Filtration Rate 2018-12-31 13:53:00* Test Item Value Reference Range Interpretation Comments Estimat Glomerular Filtration Rate (test code = 529042534) 5 >60 L Ranges were taken from the National Kidney Disease Education Program and the [facility] Kid[facility] Foundation literature.Reference ranges:60 or greater: Kvniti12-70 ( for 3 consecutive months): Chronic kidney disease 15 or less: Kidney failureValley Regional Medical CenterGlucose Hgqqu0294-28-14 13:53:00* Test Item Value Reference Range Interpretation Comments Glucose Level (test code = WJI1313) 171 74-118 H [facility] CenterCalcium Vlyaw8020-52-17 13:53:00* Test Item Value Reference Range Interpretation Comments Calcium Level (test code = 27616-0) 9.6 8.4-10.2 [facility] CenterTotal Fkmworygf7318-79-66 13:53:00* Test Item Value Reference Range Interpretation Comments Total Bilirubin (test code = 1975-2) 0.7 0.2-1.2 [facility] CenterAspartate Amino Transf (AST/SGOT) 2018-12-31 13:53:00* Test Item Value Reference Range Interpretation Comments Aspartate Amino Transf (AST/SGOT) (test code = Aspartate Amino Transf (AST/SGOT)) 16 5-34 [facility] CenterAlanine Aminotransferase (ALT/SGPT) 2018-12-31 13:53:00* Test Item Value Reference Range Interpretation Comments Alanine Aminotransferase (ALT/SGPT) (test code = 1742-6) 28 0-55 [facility] CenterTotal Spvpleq0517-55-75 13:53:00* Test Item Value Reference Range Interpretation Comments Total Protein (test code = 2885-2) 9.1 6.5-8.1 H [facility] CenterAlbumin2019-04-09 13:53:00* Test Item Value Reference Range Interpretation Comments Albumin (test code = 1751-7) 3.9 3.5-5.0 [facility] CenterGlobulin2019-04-09 13:53:00* Test Item Value Reference Range Interpretation Comments Globulin (test code = 41513-5) 5.2 2.3-3.5 H [facility] CenterAlbumin/Globulin Vqlti4060-55-51 13:53:00 * Test Item Value Reference Range Interpretation Comments Albumin/Globulin Ratio (test code = 1759-0) 0.8 0.8-2.0 [facility] CenterAlkaline Vuawtaqbvuf9952-04-95 13:53:00* Test Item Value Reference Range Interpretation Comments Alkaline Phosphatase (test code = 6768-6) 130 40-150 [facility] CenterCreatine Ovxgpm6432-29-56 13:53:00* Test Item Value Reference Range Interpretation Comments Creatine Kinase (test code = 2157-6) 157 30-200 [facility] CenterLactic Acid Hbzdx1652-21-01 13:42:00* Test Item Value Reference Range Interpretation Comments Lactic Acid Level (test code = Lactic Acid Level) 13.2 4.5- 19.8 [facility] CenterWhite Blood Xaxez6427-82-85 13:26:00* Test Item Value Reference Range Interpretation Comments White Blood Count (test code = 6690-2) 12.87 4.8-10.8 H [facility] CenterRed Blood Ftlyo7228-66-67 13:26:00* Test Item Value Reference Range Interpretation Comments Red Blood Count (test code = 789-8) 4.55 4.3-5.7 [facility] CenterHemoglobin2019-04-09 13:26:00* Test Item Value Reference Range Interpretation Comments Hemoglobin (test code = 30219-3) 13.1 14.0-18.0 L [facility] CenterHematocrit2019-04-09 13:26:00* Test Item Value Reference Range Interpretation Comments Hematocrit (test code = 4544-3) 41.0 38.2-49.6 [facility] CenterMean Corpuscular Nlmhcy7947-58-19 13:26:00* Test Item Value Reference Range Interpretation Comments Mean Corpuscular Volume (test code = 787-2) 90.1 81-99 [facility] CenterMean Corpuscular Prwkswqllu5633-71-41 13:26:00* Test Item Value Reference Range Interpretation Comments Mean Corpuscular Hemoglobin (test code = 785-6) 28.8 28-32 [facility] CenterMean Corpuscular Hemoglobin Concent 2018-12-31 13:26:00* Test Item Value Reference Range Interpretation Comments Mean Corpuscular Hemoglobin Concent (test code = 786-4) 32.0 31-35 [facility] CenterRed Cell Distribution Bldyx1045-94-12 13:26:00* Test Item Value Reference Range Interpretation Comments Red Cell Distribution Width (test code = 37926-1) 14.3 11.7 -14.4 [facility] CenterPlatelet Hkltd9528-21-25 13:26:00* Test Item Value Reference Range Interpretation Comments Platelet Count (test code = 777-3) 306 140-360 [facility] CenterNeutrophils (%) (Auto)2018-12-31 13:26:00 * Test Item Value Reference Range Interpretation Comments Neutrophils (%) (Auto) (test code = 02206-3) 74.7 38.7-80.0 [facility] CenterLymphocytes (%) (Auto)2018-12-31 13:26:00 * Test Item Value Reference Range Interpretation Comments Lymphocytes (%) (Auto) (test code = 736-9) 12.6 18.0-39.1 L [facility] CenterMonocytes (%) (Auto)2018-12-31 13:26:00* Test Item Value Reference Range Interpretation Comments Monocytes (%) (Auto) (test code = 5905-5) 8.2 4.4-11.3 [facility] CenterEosinophils (%) (Auto)2018-12-31 13:26:00 * Test Item Value Reference Range Interpretation Comments Eosinophils (%) (Auto) (test code = 713-8) 1.6 0.0-6.0 [facility] CenterBasophils (%) (Auto)2018-12-31 13:26:00* Test Item Value Reference Range Interpretation Comments Basophils (%) (Auto) (test code = 706-2) 1.1 0.0-1.0 H [facility] CenterIM GRANULOCYTES %2018-12-31 13:26:00* Test Item Value Reference Range Interpretation Comments IM GRANULOCYTES % (test code = IM GRANULOCYTES %) 1.8 0.0- 1.0 H [facility] CenterNeutrophils # (Auto)2018-12-31 13:26:00* Test Item Value Reference Range Interpretation Comments Neutrophils # (Auto) (test code = 751-8) 9.6 2.1-6.9 H [facility] CenterLymphocytes # (Auto)2018-12-31 13:26:00* Test Item Value Reference Range Interpretation Comments Lymphocytes # (Auto) (test code = 92079-4) 1.6 1.0-3.2 [facility] CenterMonocytes # (Auto)2018-12-31 13:26:00* Test Item Value Reference Range Interpretation Comments Monocytes # (Auto) (test code = 742-7) 1.1 0.2-0.8 H [facility] CenterEosinophils # (Auto)2018-12-31 13:26:00* Test Item Value Reference Range Interpretation Comments Eosinophils # (Auto) (test code = 711-2) 0.2 0.0-0.4 [facility] CenterBasophils # (Auto)2018-12-31 13:26:00* Test Item Value Reference Range Interpretation Comments Basophils # (Auto) (test code = 704-7) 0.1 0.0-0.1 [facility] CenterAbsolute Immature Granulocyte (auto 2018-12-31 13:26:00* Test Item Value Reference Range Interpretation Comments Absolute Immature Granulocyte (auto (osman t code = Absolute Immature Granulocyte (auto) 0.23 0-0.1 H [facility] CenterGLUBED2019-02-05 07:50:00* Test Item Value Reference Range Interpretation Comments GLUBED (test code = GLUBED) 157 mg/dL 74-106 H Performed by certified facing machine operator at [facility] EPQJYC0454-41-54 07:50:00* Test Item Value Reference Range Interpretation Comments GLUBED (test code = GLUBED) 126 mg/dL 74-106 H Performed by certified facing machine operator at [facility] LQVNQT0016-89-94 07:50:00* Test Item Value Reference Range Interpretation Comments GLUBED (test code = GLUBED) 128 mg/dL 74-106 H Performed by certified facing machine operator at [facility] GASTRIC,TYKTXZ9937-62-58 16:41:00 RUN DATE: 09/19/18 [facility] PAGE 1 RUN TIME: 1641 Specimen Inqui ry RUN USER: INTERFACE PATIENT: ELIDIA ZAMORA JR ACCT #: [id number] LOC: EFRAÍN U #: [id number] AGE/SX: 53/M ROOM: RE09/12/18[facility] DR: Dano Pelayo : 67 BED: DIS: STATUS: MIRELA [facility] TLOC: SPEC #: [id number] RECD: 09/13/18 STATUS: FLY GONZALEZ #: [id number] SAKSHI: 09/12/[address] [facility] [address]: Dano Pelayo MD ENTERED: 09/13/18 SP TYPE: GASTRIC BX OTHR DR: Jyotsna Marte MD ORDERED: GROSS COPIES TO: Dano Pelayo MD [address], [address] [place] [address] Jyotsna Marte MD [address] [place] [address] MARKERS: INTRADEPARTME NTAL CONSULT PROCEDURES: GROSS (09/19/18-1507) [...] ON NEXT P AGE RUN DATE: 09/19/18 [facility] PAGE 2 RUN TIME: 1641 Specimen Inquiry RUN USER: INTERFACE SPEC #: [id number] PATIENT: ELIDIA ZAMORA #[id number] (Continued) COMM ENT (Continued) Intradepartmental consultation: HEDY [...] NEGATIVE FOR DYSPLASIA AND MALIGNANCY RRB/gm D [phone] MACROSCOPIC The first specimen is received in [...] CONTINUED ON NEXT PAGE RUN DATE: 09/19/18 [facility] PAGE 3 RUN TIME: 1641 Specimen Inquiry RUN USER: INTERFACE SPEC #: [id number]: [id number] PATIENT: ELIDIA ZAMORAFLEX MOORE #[id number] (Continued ) MACROSCOPIC (Continued) measuring up to [...] B, base of polyp en face and claims service representative cross sections; 4C, remainder of pedunculated polyp, mildly fragmented. GROSS PERFORMED AT [facility] [address] [place] [address], [place] [address] (p) [phone] MICROSCOPIC MICROSCOPIC PERFORMED AT [facility] All of the stains, including any controls performed, stain appropriately . [facility] [address] [place] [address] [phone] PERFORMING SITE Processed at: [facility] RAUL [address] [place] [address] [phone] Signed SIGNATURE ON FILE Halima Oates 09/19/18 1641 END OF REPORT Bedside Tveyuma7761-59-84 01:29:00* Test Item Value Reference Range Interpretation Comments Bedside Glucose (test code = 43908-5) 172 70-120 H Meter ID: [id number] Camillus Medical Centerodium Level 2017-12-20 20:53:00* Test Item Value Reference Range Interpretation Comments Sodium Level (test code = 2951-2) 130 136-145 L [facility] CenterPotassium Gfzmy8854-93-10 20:53:00* Test Item Value Reference Range Interpretation Comments Potassium Level (test code = 2823-3) 5.5 3.5-5.1 H NO HEMOLYSIS [facility] CenterChloride Doqzl9072-02-27 20:53:00* Test Item Value Reference Range Interpretation Comments Chloride Level (test code = 2075-0) 88 98-107 L [facility] CenterCarbon Dioxide Mnuqt4745-15-55 20:53:00* Test Item Value Reference Range Interpretation Comments Carbon Dioxide Level (test code = 2028-9) 31 22-29 H [facility] CenterAnion Hgw8631-80-31 20:53:00* Test Item Value Reference Range Interpretation Comments Anion Gap (test code = 49014-1) 16.5 8-16 H [facility] CenterBlood Urea Ldovczua7442-40-46 20:53:00* Test Item Value Reference Range Interpretation Comments Blood Urea Nitrogen (test code = 3094-0) 49 7-26 H [facility] CenterCreatinine2018-03-29 20:53:00* Test Item Value Reference Range Interpretation Comments Creatinine (test code = 2160-0) 8.33 0.72-1.25 H [facility] CenterBUN/Creatinine Eamiu0851-59-61 20:53:00* Test Item Value Reference Range Interpretation Comments BUN/Creatinine Ratio (test code = 3097-3) 6 03-18 [facility] CenterEstimat Glomerular Filtration Rate 2017-12-20 20:53:00* Test Item Value Reference Range Interpretation Comments Estimat Glomerular Filtration Rate (test code = 16212-7) 7 >60 L Ranges were taken from the National Kidney Disease Education Program and the [facility] Kid[facility] Foundation literature.Reference ranges:60 or greater: Iyozph14-26 ( for 3 consecutive months): Chronic kidney disease 15 or less: Kidney failureValley Regional Medical CenterGlucose Rjljb0833-52-56 20:53:00* Test Item Value Reference Range Interpretation Comments Glucose Level (test code = JTG8791) 628 74-118 Results called to CADENCE MARIE at 2050 on 12/20/17 by OSCAR PALOMO. RB [place].[facility] CenterCalcium Vkohd2988-59-05 20:53:00* Test Item Value Reference Range Interpretation Comments Calcium Level (test code = 05360-5) 9.4 8.4-10.2 [facility] CenterTotal Zmspxsrhg5098-34-84 20:53:00* Test Item Value Reference Range Interpretation Comments Total Bilirubin (test code = 1975-2) 0.3 0.2-1.2 [facility] CenterAspartate Amino Transf (AST/SGOT) 2017-12-20 20:53:00* Test Item Value Reference Range Interpretation Comments Aspartate Amino Transf (AST/SGOT) (test code = Aspartate Amino Transf (AST/SGOT)) 13 5-34 [facility] CenterAlanine Aminotransferase (ALT/SGPT) 2017-12-20 20:53:00* Test Item Value Reference Range Interpretation Comments Alanine Aminotransferase (ALT/SGPT) (test code = 1742-6) 14 0-55 [facility] CenterTotal Zhsjjox7813-36-77 20:53:00* Test Item Value Reference Range Interpretation Comments Total Protein (test code = 2885-2) 7.6 6.5-8.1 [facility] CenterAlbumin2018-03-29 20:53:00* Test Item Value Reference Range Interpretation Comments Albumin (test code = 1751-7) 3.0 3.5-5.0 L [facility] CenterGlobulin2018-03-29 20:53:00* Test Item Value Reference Range Interpretation Comments Globulin (test code = 78671-3) 4.6 2.3-3.5 H [facility] CenterAlbumin/Globulin Jqczu1796-41-24 20:53:00 * Test Item Value Reference Range Interpretation Comments Albumin/Globulin Ratio (test code = 1759-0) 0.7 0.8-2.0 L [facility] CenterAlkaline Adasbunzrll3420-45-81 20:53:00* Test Item Value Reference Range Interpretation Comments Alkaline Phosphatase (test code = 6768-6) 211 40-150 H [facility] CenterUrine ECG1479-06-76 20:49:00* Test Item Value Reference Range Interpretation Comments Urine WBC (test code = 5821-4) 6-10 0-5 H [facility] CenterUrine GEP9790-91-28 20:49:00* Test Item Value Reference Range Interpretation Comments Urine RBC (test code = 53205-4) NONE 0-5 [facility] Wqboowcf7715-69-64 20:49:00* Test Item Value Reference Range Interpretation Comments Urine Bacteria (test code = 21445-1) MODERATE NONE H [facility] Center[facility] Epithelial Cycoq2746-25-58 20:49:00 * Test Item Value Reference Range Interpretation Comments Urine Epithelial Cells (test code = 46052-6) FEW NONE [facility] CenterWhite Blood Rsjzy5071-01-09 20:36:00* Test Item Value Reference Range Interpretation Comments White Blood Count (test code = 6690-2) 8.08 4.8-10.8 [facility] Center[facility] Blood Wtjqo5256-21-20 20:36:00* Test Item Value Reference Range Interpretation Comments Red Blood Count (test code = 789-8) 4.37 4.3-5.7 [facility] CenterHemoglobin2018-03-29 20:36:00* Test Item Value Reference Range Interpretation Comments Hemoglobin (test code = 96440-7) 12.7 14.0-18.0 L [facility] CenterHematocrit2018-03-29 20:36:00* Test Item Value Reference Range Interpretation Comments Hematocrit (test code = 4544-3) 36.6 38.2-49.6 L [facility] CenterMean Corpuscular Nekrrf1099-02-29 20:36:00* Test Item Value Reference Range Interpretation Comments Mean Corpuscular Volume (test code = 787-2) 83.8 81-99 [facility] CenterMean Corpuscular Ymxerllaec3140-27-44 20:36:00* Test Item Value Reference Range Interpretation Comments Mean Corpuscular Hemoglobin (test code = 785-6) 29.1 28-32 [facility] CenterMean Corpuscular Hemoglobin Concent 2017-12-20 20:36:00* Test Item Value Reference Range Interpretation Comments Mean Corpuscular Hemoglobin Concent (test code = 786-4) 34.7 31-35 [facility] CenterRed Cell Distribution Rnaty5400-18-68 20:36:00* Test Item Value Reference Range Interpretation Comments Red Cell Distribution Width (test code = 28834-5) 12.7 11.7 -14.4 [facility] CenterPlatelet Gnzkv3066-07-49 20:36:00* Test Item Value Reference Range Interpretation Comments Platelet Count (test code = 777-3) 239 140-360 [facility] CenterNeutrophils (%) (Auto)2017-12-20 20:36:00 * Test Item Value Reference Range Interpretation Comments Neutrophils (%) (Auto) (test code = 37628-5) 65.4 38.7-80.0 [facility] CenterLymphocytes (%) (Auto)2017-12-20 20:36:00 * Test Item Value Reference Range Interpretation Comments Lymphocytes (%) (Auto) (test code = 736-9) 22.0 18.0-39.1 [facility] CenterMonocytes (%) (Auto)2017-12-20 20:36:00* Test Item Value Reference Range Interpretation Comments Monocytes (%) (Auto) (test code = 5905-5) 7.2 4.4-11.3 [facility] CenterEosinophils (%) (Auto)2017-12-20 20:36:00 * Test Item Value Reference Range Interpretation Comments Eosinophils (%) (Auto) (test code = 713-8) 3.3 0.0-6.0 [facility] CenterBasophils (%) (Auto)2017-12-20 20:36:00* Test Item Value Reference Range Interpretation Comments Basophils (%) (Auto) (test code = 706-2) 1.0 0.0-1.0 [facility] CenterIM GRANULOCYTES %2017-12-20 20:36:00* Test Item Value Reference Range Interpretation Comments IM GRANULOCYTES % (test code = IM GRANULOCYTES %) 1.1 0.0- 1.0 H [facility] CenterNeutrophils # (Auto)2017-12-20 20:36:00* Test Item Value Reference Range Interpretation Comments Neutrophils # (Auto) (test code = 751-8) 5.3 2.1-6.9 [facility] CenterLymphocytes # (Auto)2017-12-20 20:36:00* Test Item Value Reference Range Interpretation Comments Lymphocytes # (Auto) (test code = 34017-1) 1.8 1.0-3.2 [facility] CenterMonocytes # (Auto)2017-12-20 20:36:00* Test Item Value Reference Range Interpretation Comments Monocytes # (Auto) (test code = 742-7) 0.6 0.2-0.8 [facility] CenterEosinophils # (Auto)2017-12-20 20:36:00* Test Item Value Reference Range Interpretation Comments Eosinophils # (Auto) (test code = 711-2) 0.3 0.0-0.4 [facility] CenterBasophils # (Auto)2017-12-20 20:36:00* Test Item Value Reference Range Interpretation Comments Basophils # (Auto) (test code = 704-7) 0.1 0.0-0.1 [facility] CenterAbsolute Immature Granulocyte (auto 2017-12-20 20:36:00* Test Item Value Reference Range Interpretation Comments Absolute Immature Granulocyte (auto (osman t code = Absolute Immature Granulocyte (auto) 0.09 0-0.1 [facility] CenterUrine Sjkuq3261-82-27 20:36:00* Test Item Value Reference Range Interpretation Comments Urine Color (test code = 5778-6) YELLOW YELLOW [facility] CenterU[facility] Xdzwigq9254-06-55 20:36:00* Test Item Value Reference Range Interpretation Comments Urine Clarity (test code = 55762-0) CLEAR CLEAR [facility] CenterU[facility] Specific Ukxxnjx4501-90-34 20:36:00 * Test Item Value Reference Range Interpretation Comments Urine Specific [place] (test code = 5811-5) 1.015 1.010-1.02 5 [facility] CenterU[facility] [id number] 20:36:00* Test Item Value Reference Range Interpretation Comments Urine pH (test code = 15171-2) 8 5-7 H [facility] CenterU[facility] Leukocyte Kafqmugf0592-19-41 20:36:00* Test Item Value Reference Range Interpretation Comments Urine Leukocyte Esterase (test code = 5799-2) NEGATIVE NEGATIVE [facility] CenterU[facility] Pjnqvmh2312-06-62 20:36:00* Test Item Value Reference Range Interpretation Comments Urine Nitrite (test code = 62529-0) NEGATIVE NEGATIVE [facility] CenterU[facility] Lakpkdl8912-30-38 20:36:00* Test Item Value Reference Range Interpretation Comments Urine Protein (test code = 5804-0) 3+ NEGATIVE H [facility] CenterU[facility] Glucose (UA)2017-12-20 20:36:00* Test Item Value Reference Range Interpretation Comments Urine Glucose (UA) (test code = 2349-9) 3+ NEGATIVE H [facility] CenterUrine Wroaacf9353-45-66 20:36:00* Test Item Value Reference Range Interpretation Comments Urine Ketones (test code = 52047-9) NEGATIVE NEGATIVE [facility] Center[facility] Tzttmwdbfgvm7755-66-73 20:36:00* Test Item Value Reference Range Interpretation Comments Urine Urobilinogen (test code = 85124-9) 0.2 0.2-1 [facility] CenterU[facility] Zxhfsxrzc4453-26-70 20:36:00* Test Item Value Reference Range Interpretation Comments Urine Bilirubin (test code = 1978-6) NEGATIVE NEGATIVE [facility] CenterU[facility] Jkwel6122-84-31 20:36:00* Test Item Value Reference Range Interpretation Comments Urine Blood (test code = 38244-5) 1+ NEGATIVE H [facility] CenterCreatine Phigyt5687-13-04 10:10:00* Test Item Value Reference Range Interpretation Comments Creatine Kinase (test code = 2157-6) 179 30-200 [facility] CenterCreatine Kinase [id number] 10:10:00* Test Item Value Reference Range Interpretation Comments Creatine Kinase MB (test code = 16534-3) 2.00 0.00-5.00 [facility] CenterTroponin Q2492-97-65 10:10:00* Test Item Value Reference Range Interpretation Comments Troponin I (test code = PRG4528) 0.041 0-0.300 [facility] CenterTriglycerides Iwzfn8831-01-51 08:05:00* Test Item Value Reference Range Interpretation Comments Triglycerides Level (test code = 2571-8) 317 0-149 H [facility] CenterCholesterol Xpdxq2319-99-35 08:05:00* Test Item Value Reference Range Interpretation Comments Cholesterol Level (test code = 2093-3) 190 0-199 Less than 200 mg/dL Low Wstn421 - 239 mg/dL Borderline Stfz015 m g/dl and greater High Risk [facility] CenterLDL Sbxrgbrmabg6846-79-40 08:05:00* Test Item Value Reference Range Interpretation Comments LDL Cholesterol (test code = 89462-7) 104 60-130 [facility] CenterHDL Xtzmgignjlo7118-36-00 08:05:00* Test Item Value Reference Range Interpretation Comments HDL Cholesterol (test code = 2085-9) 23 40-60 L [facility] CenterCholesterol/HDL Ablkr4478-14-26 08:05:00 * Test Item Value Reference Range Interpretation Comments Cholesterol/HDL Ratio (test code = 9830-1) 8.3 3.9-4.7 H [facility] CenterB-Type Natriuretic Mhtzeoz0972-98-44 20:01:00* Test Item Value Reference Range Interpretation Comments B-Type Natriuretic Peptide (test code = 28096-7) 149.6 0-100 H [facility] CenterProthrombin Gjfu6712-25-76 19:29:00* Test Item Value Reference Range Interpretation Comments Prothrombin Time (test code = 5902-2) 14.2 11.9-14.5 [facility] CenterProthromb Time International Ratio 2017-07-07 19:29:00* Test Item Value Reference Range Interpretation Comments Prothromb Time International Ratio (test code = 6301-6) 1.05 Oral Anticoagulant Therapy INR Values:1. Low Intensity Therapy 1.5 - 2.02 . Moderate Intensity Therapy 2.0 - 3.03. High Intensity Therapy(1) 2.5 - 3. 54. High Intensity Therapy(2) 3.0 - 4.05. Panic Value INR > 5.0 [facility] CenterActivated Partial Thromboplast Time 2017-07-07 19:29:00* Test Item Value Reference Range Interpretation Comments Activated Partial Thromboplast Time (test code = 64295-4) 30.3 23.8-35.[address] [facility] [address] [place] [address] Patient Name: ELIDIA ZAMORA MR #: [id number] : 1965 Age/Sex: 51/M Req #: [id number] Adm Physician: Ordered by: AGUILA RECIO MD Report #: [id number] Location: ER Room/Bed: Procedure: [id number] DX/CHEST SINGLE (PORTABLE) Exam Date: 07/07/17 Exam [...]
--- NOTE | 2020-04-24 01:10 | NUR ---
RECEIVED PATIENT FROM ER. PATIENT IS AAOX3. RESP EVEN AND UNLABORED. PAIN TO L EAR 01/31. NO S&S OF DISTRESS NOTED AT THIS TIME. ORIENTED TO ROOM. CALL LIGHT WITHIN REACH. BED LOCKED IN LOWEST POSITION, SIDE RAILS UPX2, CALL LIGHT IN REACH.
[2020-04-24] MEDS ORDERED: INSULIN REGULAR, HUMAN 100 UNIT/1 ML 3ML VIAL SQ SCH (07:30)
--- NOTE | 2020-04-24 07:30 | NUR ---
received pt from previous shift, pt resting in bed
[2020-04-24] MEDS ORDERED: ONDANSETRON HCL INJ 2MG/ML 2ML 2 MG/ML VIAL IV PRN (10:45)
[2020-04-24] MEDS ORDERED: ACETAMINOPHEN/CODEINE 300MG - 30MG TAB PO PRN (10:45)
[2020-04-24] MEDS ORDERED: HYDRALAZINE HCL 20 MG/ML VIAL IV PRN (10:45)
--- NOTE | 2020-04-24 10:46 | NUR ---
jim integrated circuit ic layout designer, at bedside for rounding
[2020-04-24] MEDS ORDERED: Meclizine Hcl PO (11:04)
[2020-04-24] MEDS ORDERED: MECLIZINE HCL 12.5 MG TAB PO PRN (11:15)
[2020-04-24] MEDS ORDERED: INSULIN LISPRO 100 UNIT/1 ML 3ML VIAL SQ SCH (11:30)
--- NOTE | 2020-04-24 12:55 | NUR ---
dr morrow called dr gama at nursing station and discussed pt being dc, pt ok to be dc from dr gama and dr morrow. spoke with pt daughter. pt told to avoid nsaids
[2020-04-24] MEDS ORDERED: NEOMYCIN/POLYMYX/HYDROC (OTIC) 10 ML BTL OT SCH (13:00)
--- NOTE | 2020-04-24 13:15 | NUR ---
pt given dc instructions. pt told to cont home meds. pt told to resume diabetic/ renal diet. pt verbalizes understanding of what to eat and how to take meds
--- NOTE | 2020-04-24 13:30 | NUR ---
pt dc home
[2020-04-24] MEDS ORDERED: CLONIDINE HCL 0.2 MG TAB PO SCH (17:00)
[2020-04-24] MEDS ORDERED: AMLODIPINE BESYLATE 10 MG TAB PO SCH (21:00)
[2020-04-24] MEDS ORDERED: INSULIN GLARGINE 100 UNITS/ML VIAL SQ SCH (21:00)
--- NOTE | 2020-04-25 05:57 | Consultation ---
DATE OF CONSULTATION: 04/24/2020 NEPHROLOGY CONSULTATION NOTE: REASON FOR CONSULTATION: ESRD. REFERRING PHYSICIAN: ER physician. HISTORY OF PRESENT ILLNESS: This is a 54-year-old gentleman with past medical history of ESRD on hemodialysis on a Sunday, Sunday, Sunday schedule through right arm AV fist with last dialysis yesterday. 1. Hypertension. 2. Status post right arm AV fistula placement. 3. Cataract removal. 4. Diabetes mellitus. 5. Coronary artery disease, was just discharged last week right back yesterday with pain in the left ear extending to the throat and side of the face. At the time of my examination, he appeared in no acute distress and denied any headache, blurring vision, chest pain, shortness of breath, abdominal pain, diarrhea, bleeding in the stools or any focal weakness. He did complain of some dizziness and discomfort in the ear. PAST MEDICAL AND SURGICAL HISTORY: As above. PERSONAL AND SOCIAL HISTORY: No history of alcohol or tobacco. MEDICATIONS: See the medication sheet that was reviewed. PHYSICAL EXAMINATION: GENERAL: He appears in no acute distress. VITAL SIGNS: Blood pressure 135/68, respirations 18, heart rate 69, temperature 97.8. HEENT: Head was atraumatic, normocephalic. Examination of the left side of the face and neck reveals some fullness in the submandibular and carotid area just below the left ear with mild tenderness. CHEST: Revealed fair air entry. HEART: S1, S2. ABDOMEN: Slightly obese, but soft and nontender. Bowel sounds are positive. EXTREMITIES: No edema. TEXTILE CONVERTER: He was awake, alert, oriented x3. Cranial nerves are intact. There were no gross motor deficits noted. LABORATORY DATA: Sodium 133, potassium 4.7, chloride 92, CO2 of 25, BUN 26, creatinine 7.6, calcium 8.2, white cell count 11.2, hemoglobin 11.3, hematocrit 35.1, platelets 274. Chest x-ray did not show any acute pathology. IMPRESSION: 1. End-stage renal disease on hemodialysis on Sunday, Sunday, Sunday schedule with no evidence of volume overload or hyperkalemia. 2. Mild anemia of end-stage renal disease. 3. Pain in the left ear, suspect middle ear infection? versus otitis externa. PLAN: Strict I and Os. Renal diet with 1.5 L fluid restriction in 24 hours. No acute indication for dialysis at the present time, but he has been able to schedule for dialysis on 04/26/2020 if he is still here. Further recommendations to follow. Grzegorz Leach MD SA/ACE /[id number]
[2020-04-25] MEDS ORDERED: PANTOPRAZOLE SOD 40 MG TABEC PO SCH (07:30)
--- NOTE | 2020-04-25 18:55 | Discharge Summary ---
ADMISSION DIAGNOSES: 1. Otitis externa, present on admission. 2. Hypertension with end-stage renal disease. 3. Type 2 diabetes with end-stage renal disease. 4. End-stage renal disease. 5. Dizziness. DISCHARGE DIAGNOSES: 1. Otitis externa, present on admission. 2. Hypertension with end-stage renal disease. 3. Type 2 diabetes with end-stage renal disease. 4. End-stage renal disease. 5. Dizziness. 6. Rule out cerebrovascular accident. HISTORY: End-stage renal disease, hypertension, CAD with PCI, type 2 diabetes. SURGICAL HISTORY: Right forearm AV fistula, bilateral cataract surgery. FAMILY HISTORY: The patient's mom, dad, brother, and sister had diabetes. SOCIAL HISTORY: Noncontributory. HOSPITAL COURSE: A 54-year-old male admits with complaints of dizziness. He is being treated outpatient for otitis externa and is following closely with Dr. Alvarez who is ENT. After dialysis, his dizziness got worse, so his convinced him to come to the ER. Overall, the ear pain is continuing to improve. He denies dysphagia, change in vision, focal weakness, and facial drooping. On admission, the patient was started on Zosyn and Cortisporin drops, this was the same treatment he was receiving last hospitalization just a few days ago, which was changed to p.o. antibiotics at home. He is followed up with Dr. Alvarez on Sunday and is advised to follow up again with Dr. Alvarez on Sunday. He will discharge home as it is apparent by physical exam that he is not having a stroke. He was given a prescription for meclizine and explained that the dizziness is likely due to the ear infection that he has. The patient is feeling better after getting explanation and ready to discharge home. He will follow up with primary care in 1 to [address] Ann in 2 days. Dictated by Shanice uSarez NP MD XIOMY Be/MODL /[id number]
== END 2020-04-24 13:22 | disposition home or self-care (01) | DRG 154 ==
LOC: ER 22:48 → ERHOLD 04-24 00:43 → MED/SURG3 04-24 01:18
PROVIDERS: ADMIT Internal Medicine; ATTEND Internal Medicine
DX: H60.92 Unspecified otitis externa, left ear (principal); N18.6 End stage renal disease; I12.0 Hypertensive chronic kidney disease with stage 5 chronic kidney disease or end stage renal disease; E11.22 Type 2 diabetes mellitus with diabetic chronic kidney disease; I25.10 Atherosclerotic heart disease of native coronary artery without angina pectoris; D63.1 Anemia in chronic kidney disease; Z95.5 Presence of coronary angioplasty implant and graft; Z82.49 Family history of ischemic heart disease and other diseases of the circulatory system; Z83.3 Family history of diabetes mellitus; Z99.2 Dependence on renal dialysis; R42 Dizziness and giddiness; Z11.59 Encounter for screening for other viral diseases; Z79.4 Long term (current) use of insulin
CPT/HCPCS: 36415; 80048; 82948; 85025; 87040; 99284; J2543; J3370; U0002

== ENCOUNTER 2022-05-04 15:09 | Emergency (ER) | payer MEDICARE ==
[~2022-05-04] VITALS: Ht 170.2 cm; Wt 103.0 kg
[~2022-05-04 15:09] MED LIST changes: +Meclizine Hcl PO
[2022-05-04] MEDS ORDERED: CEPHALEXIN500 MG PO (15:29)
[2022-05-04] MEDS ORDERED: BACTRIM DS TAB1 EACH PO (15:29)
[2022-05-04] MEDS ORDERED: ULTRAM 50MG50 MG PO (15:30)
== END 2022-05-04 15:36 | disposition home or self-care (01) ==
LOC: FSED 15:27
DX: L02.31 Cutaneous abscess of buttock (principal); I12.0 Hypertensive chronic kidney disease with stage 5 chronic kidney disease or end stage renal disease; E11.22 Type 2 diabetes mellitus with diabetic chronic kidney disease; N18.6 End stage renal disease; Z99.2 Dependence on renal dialysis
CPT/HCPCS: 99283